=== PATIENT | female | born 1935 | race Caucasian/White ===

== ENCOUNTER 2020-03-11 10:27 | Outpatient (CLI) | payer MEDICARE, OTHER, SELFPAY ==
--- NOTE | 2020-03-11 10:38 | MM_ITS ---
WS: [id number] BILATERAL DIGITAL SCREENING MAMMOGRAPHY WITH CAD CLINICAL INFORMATION: SCREENING HISTORY: Screening mammogram. No current complaints. COMPARISON: 2018 TECHNIQUE: Bilateral CC and MLO views. FINDINGS: Scattered fibroglandular densities bilaterally. No suspicious focal mass, asymmetry, calcifications, or architectural distortion. No evidence of malignancy. Vascular calcification MM/[place] [id number] IMPRESSION: BI-RADS: 2-Benign FOLLOW UP: 1 Year Follow-up Recommend return to annual screening mammography.
--- NOTE | 2020-03-15 11:52 | ONC FU_ITS ---
Dr. Mendiola Patient Follow-Up Note Patient: NBA SANTA Unit #: [id number]: 1935 Dicatated By: Mendez Mendiola M.D.Date of Visit:Mar 11, 2020 Onc Med Follow-up/Prog Note Chief Complaint: Lymphoma. 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 She had presented in June 2006 with left cervical adenopathy. Cervical lymph node biopsy at that time was consistent with follicle center cell lymphoma, grade II. Her staging evaluation showed involvement on both sides of the neck, in the periaortic area, and in the left inguinal area. Bone marrow was not involved. She was not symptomatic, and she was initially managed with observation. By September 2009 she was showing evidence of progression by PET/CT, and at that point she started treatment with R-CVP chemotherapy. She did have a good clinical response, but she had multiple toxicities with the chemotherapy. It was stopped in November 2009 after 4 cycles. She was then given 2 years of maintenance Rituxan at 3 month intervals. Treatment was completed in November 2011. She has since then been followed on observation, thus far with no recurrence/progression of the lymphoma. Her other medical illnesses include hypertension, hyperlipidemia, type 2 diabetes, and chronic kidney disease. She also has degenerative arthritis and peripheral neuropathy. As of her follow-up visit on 01/28/2019 she appeared stable clinically with no evidence for recurrence of her lymphoma. She continued on observation/expectant management. She is seen today for a scheduled visit. 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 She has had some decline in her activity tolerance. Her ECOG score is 2. She still has good appetite. She has not had fever. She occasionally has sweating in association with low blood sugar. She sometimes has shortness of breath. She does not complain of cough, and she has not been having chest pain. She has no GI/ complaints other than her bowels tend to be real loose. She has been having aching pain in her right foot, and she also has pain in her left second toe. She is having difficulty walking because of it. She does not complain of headache or dizziness. She does have neuropathy in her feet. Medications: 1Omeprazole 1 (20 mg) Capsule Delayed Release Oral b.i.d., amLODIPine Besylate 1 Tablet (of 5 mg) Oral daily, Basaglar KwikPen 50 Units (of 100 ) Subcutaneous at bedtime, Carvedilol 1 Tablet (of 25 mg) Oral b.i.d., Ferrous Sulfate 1 Tablet (of 325 (65 fe) mg) Oral b.i.d., Gabapentin 1 Tablet (of 600 mg) Oral b.i.d., Lantus 50 Units (of 100 Units/mL) Subcutaneous at bedtime, Losartan Potassium 1 (50 mg) Tablet Oral daily, Simvastatin 1 (40 mg) Tablet Oral daily Allergies: NKDA Review of Systems: Constitutional - She has limited activity. Her appetite is good. Her weight is down a few pounds. She has not had fever. She has occasional sweating in association with low blood sugar. ECOG score is 1, ENMT - No sinus congestion/drainage. No mouth sores. No sore throat or difficulty swallowing, Hematologic/Lymphatic - No abnormal bruising or bleeding, Respiratory - She sometimes has shortness of breath. No cough. No pleuritic pain or hemoptysis, Cardiovascular - No angina pain. No palpitations, Gastrointestinal - No nausea or vomiting. No heartburn or acid reflux. She complains that her bowels are really loose. No blood in the stool or black stools, Genitourinary (F) - No dysuria or hematuria. No urinary frequency. No urgency or incontinence, Musculoskeletal - She has been having aching pain in her right foot. She also complains of pain in her left second toe. She does have difficulty walking, Integumentary - No skin rash, Neurologic - No headache or dizziness. She has neuropathy in her feet, Psychiatric - No anxiety or depression. She says she sleeps okay once she falls asleep. Vital Signs: Performed on Mar 11, 2020 15:27 Height - 66.00 in Weight - 237.2 lbs (LOW) BSA - 2.15 sq.m BMI - 38.29 (HIGH) Temperature - 99.1 F (HIGH) Pulse - 73 /min Respiration - 24 /min BP - 153/74 mm(hg) (HIGH) O2 Sat - 99 % Pain - 0 Physical Examination: Constitutional - She appears somewhat weak generally, and she has poor mobility, Eyes - Sclerae nonicteric. Conjunctivae clear, ENMT - No lesions noted in the oral cavity, Hematologic/Lymphatic - I do not feel any cervical, clavicular, or axillary lymphadenopathy, Respiratory - Lungs are clear with good air movement bilaterally, Cardiovascular - Heart rhythm is regular. There is a II/ systolic murmur. There is no gallop or rub noted, Abdomen - Soft. Liver and spleen are not enlarged. There is no abdominal mass or ascites noted and there is no inguinal adenopathy noted, Extremities - There is 1 to 2+ lower extremity edema, and there is associated mild erythema. There is a subcutaneous nodule on the dorsum of the left hand just below and lateral to the first MCP joint. It measures approximately 2 x 3 cm, and it appears to most likely be associated with the joint, Integumentary - No skin ulcerations or suspicious skin lesions, Neurologic - There are no focal neurologic deficits noted. Impression: 1. Patient with low-grade non-Hodgkin's lymphoma (grade II follicular lymphoma), diagnosed in June 2006 and initially managed with observation. 2. By September 2009 she had evidence of significant disease progression. She had a good response to treatment with 4 cycles of R-CVP chemotherapy, which she completed in November 2009. 3. She subsequently was given 2 years of maintenance Rituxan, completed in November 2011. She has since then remained on observation/expectant management. Her other medical illnesses include: 4. Hypertension. 5. Hyperlipidemia. 6. Type II diabetes. 7. Degenerative arthritis. 8. Peripheral neuropathy. I had seen her for a follow-up visit on 01/28/2019. At that time she had reported some gradual decline in her activity over the preceding year. By clinical evaluation, there was no evidence of recurrence of the lymphoma. Since then she has continued to show some further decline in her activity tolerance. Her chronic kidney disease has now progressed to late stage IV. She otherwise appears stable clinically. There appears to be no obvious progression of her lymphoma. Plan: She remains on observation/expectant management. I will see her again in 1 year, or sooner as needed. Signed By: Mendez Mendiola M.D. <<Signature on File>>
== END 2020-03-11 10:28 | disposition home or self-care (01) ==
LOC: RADSHAW 10:36
PROVIDERS: PCP Family Medicine; Visit Provider Internal Medicine Medical Oncology
DX: Z12.31 Encounter for screening mammogram for malignant neoplasm of breast (principal); C82.18 Follicular lymphoma grade II, lymph nodes of multiple sites; E78.5 Hyperlipidemia, unspecified; E11.42 Type 2 diabetes mellitus with diabetic polyneuropathy; E11.22 Type 2 diabetes mellitus with diabetic chronic kidney disease; I12.9 Hypertensive chronic kidney disease with stage 1 through stage 4 chronic kidney disease, or unspecified chronic kidney disease; N18.4 Chronic kidney disease, stage 4 (severe); Z79.4 Long term (current) use of insulin
CPT/HCPCS: 77067; G0463

== ENCOUNTER 2020-03-26 10:22 | Outpatient (CLI) | payer MEDICARE, OTHER, SELFPAY ==
[2020-03-26 11:13] LABS: Basophils # 0.1 10^3/uL (0.0-0.1); Basophils % 0.8 %; Eosinophils # 0.2 10^3/uL (0.0-0.8); Eosinophils % 1.7 %; Hematocrit 29.4 % (37.0-47.0); Hemoglobin 9.7 g/dL (11.5-15.3); Lymphocytes # 1.4 10^3/uL (0.8-4.8); Lymphocytes % 15.4 %; Mean Corpuscular Hemoglobin 29.8 pg (28.0-34.0); Mean Corpuscular Volume 90.2 fL (81-99); Mean Platelet Volume 12.2 fL (7.4-10.4); Monocytes # 0.8 10^3/uL (0.2-0.9); Monocytes % 8.3 %; Neutrophils % 73.5 %; Nucleated Red Blood Cells % 0 %; Platelet Count 296 10^3/cmm (130-400); Red Blood Count 3.26 10^6/uL (4.1-5.3); Red Cell Distribution Width 13.1 % (12.1-15.1); White Blood Count 9.3 10^3/uL (4.0-10.0)
[2020-03-26 17:06] LABS: Albumin Level 4.2 g/dL (3.5-5.2); Anion Gap 26.2 (5-19); Blood Urea Nitrogen 72 mg/dL (8-23); Calcium 9.9 mg/dL (8.5-10.5); Carbon Dioxide 20 mmol/L (22-29); Chloride 88 mmol/L (98-107); Glucose 337 mg/dL (65-115); Phosphorus 4.8 mg/dL (2.5-4.5); Sodium 131 mmol/L (136-145)
[2020-03-26 17:45] LABS: Creatinine Urine, Random 123 mg/dL (28-217); Microalbumin Random Urine 10 ug/dL (0-20)
[2020-03-26 17:46] LABS: Microalbum Creatinine Ratio Ur 81 mg/dL (0-20)
[2020-03-26 18:40] LABS: Potassium 3.2 mmol/L (3.5-5.1)
== END 2020-03-26 10:23 | disposition home or self-care (01) ==
LOC: LAB 10:32
PROVIDERS: PCP Family Medicine; Visit Provider Registered Nurse
DX: N18.4 Chronic kidney disease, stage 4 (severe) (principal)
CPT/HCPCS: 36415; 80069; 82044; 85025

== ENCOUNTER 2020-03-31 14:16 | Outpatient (CLI) | payer MEDICARE, OTHER, SELFPAY ==
--- NOTE | 2020-03-31 14:24 | US_ITS ---
NOTE: Report was unsigned for reason: Ordering provider was edited. Original Signature date and time was: 03/31/16 @ [id number] WS: [id number] ULTRASOUND RENAL TECHNIQUE: Ultrasound examination of both kidneys. CLINICAL INFORMATION: CKD STAGE 4 FINDINGS: Technically difficult examination due to body habitus. Multicystic kidneys bilaterally. Largest cyst is in the left kidney measuring 4.7 x 4.8 cm. RIGHT: Right kidney is normal in size and appearance. Echogenicity: Normal. Cortical thickness: 1.0 cm; Normal. Hydronephrosis: None. Perinephric fluid: None. Right kidney measures: 9.7 cm x 5.3 cm x 5.3 cm. LEFT: Left kidney is normal in size and appearance. Echogenicity: Normal. Cortical thickness: 1.2 cm; Normal. Hydronephrosis: None. Perinephric fluid: None. Left kidney measures: 10.3 cm x 4.8 cm x 5.3 cm. Normal visualized aorta. Patient voided. Bladder decompressed. [facility] US/US renal BI* [id number] IMPRESSION: 1. Technically difficult examination. 2. Multicystic kidneys bilaterally. No hydronephrosis. 3. Largest cyst in left kidney measures 4.7 x 4.8 cm
[2020-03-31 16:03] LABS: 25 Hydroxy Vitamin D 32 ng/mL (30-100); Anion Gap 19.1 (5-19); Blood Urea Nitrogen 51 mg/dL (8-23); Calcium 9.6 mg/dL (8.5-10.5); Carbon Dioxide 25 mmol/L (22-29); Chloride 87 mmol/L (98-107); Glucose 211 mg/dL (65-115); Osmolality Calculated 271 mOsm/kg (285-295); Potassium 3.1 mmol/L (3.5-5.1); Sodium 128 mmol/L (136-145)
[2020-03-31 16:33] LABS: Calcium 9.9 mg/dL (8.5-10.5); Parathyroid Hormone 165.9 pg/mL (15-65)
== END 2020-03-31 14:17 | disposition home or self-care (01) ==
LOC: RAD 14:21
PROVIDERS: PCP Family Medicine; Visit Provider Internal Medicine Nephrology
DX: N18.4 Chronic kidney disease, stage 4 (severe) (principal); Q61.02 Congenital multiple renal cysts
CPT/HCPCS: 36415; 76770; 80048; 82306; 82310; 83970

== ENCOUNTER 2020-04-01 12:44 | Observation (INO) | payer MEDICARE, OTHER, SELFPAY ==
[2020-04-01 12:55] VITALS: BP 112/57; PULSE 50; RESP 18; TEMP 36.9; O2SAT 96; BMI 37.5
[2020-04-01 13:34] LABS: Basophils # 0.1 10^3/uL (0.0-0.1); Basophils % 0.8 %; Eosinophils # 0.1 10^3/uL (0.0-0.8); Eosinophils % 1.5 %; Hematocrit 28.9 % (37.0-47.0); Hemoglobin 9.6 g/dL (11.5-15.3); Lymphocytes # 1.5 10^3/uL (0.8-4.8); Lymphocytes % 15.6 %; Mean Corpuscular HGB Conc 33.2 g/dL (30.0-36.0); Mean Corpuscular Hemoglobin 29.4 pg (28.0-34.0); Mean Corpuscular Volume 88.4 fL (81-99); Mean Platelet Volume 12.1 fL (7.4-10.4); Monocytes # 0.7 10^3/uL (0.2-0.9); Monocytes % 7.5 %; Neutrophils # 6.93 10^3/uL (1.8-7.7); Neutrophils % 74.5 %; Nucleated Red Blood Cells % 0 %; Platelet Count 297 10^3/cmm (130-400); Red Blood Count 3.27 10^6/uL (4.1-5.3); Red Cell Distribution Width 13.1 % (12.1-15.1); White Blood Count 9.3 10^3/uL (4.0-10.0)
[2020-04-01 13:43] LABS: INR 1.06 (0.8-1.2)
[2020-04-01 13:48] LABS: Alanine Aminotransferase 15 U/L (0-33); Albumin Level 4.2 g/dL (3.5-5.2); Alkaline Phosphatase 91 IU/L (35-105); Ammonia 12 umol/L (11-51); Anion Gap 20.2 (5-19); Aspartate Amino Transferase 16 U/L (0-32); Blood Urea Nitrogen 59 mg/dL (8-23); Calcium 9.8 mg/dL (8.5-10.5); Carbon Dioxide 24 mmol/L (22-29); Chloride 89 mmol/L (98-107); Globulin 2.3 g/dL (1.3-4.6); Glucose 250 mg/dL (65-115); Magnesium 2.2 mg/dL (1.7-2.3); Osmolality Calculated 277 mOsm/kg (285-295); Phosphorus 4.3 mg/dL (2.5-4.5); Potassium 3.2 mmol/L (3.5-5.1); Sodium 130 mmol/L (136-145); Total Bilirubin 0.3 mg/dL (0.15-1.2); Total Protein 6.5 g/dL (6.6-8.7)
--- NOTE | 2020-04-01 15:06 | W.ED.RECABL ---
HPI - Recheck/Abnormal Lab/Rx General: Chief Complaint: Recheck/Abnormal Lab/Rx Stated Complaint: sent by casper Time Seen by Provider: 04/01/20 14:43 History of Present Illness: HPI narrative: 84-year-old female in with concerns of abnormal labs. Patient had some recent labs by her engineering tech was called this morning and said that she had some abnormalities in needed presented to the emergency department. The patient has advanced chronic kidney disease reportedly but she currently denies any symptoms specifically she denies any muscle cramping or weakness she denies any fever or chills. She hasn't had any chest pain or abdominal pain. She is not exhibiting any nausea or vomiting. No other symptoms. Review of Systems General: Reports: 10 or more systems reviewed and unremarkable except in HPI and below Physical Exam Const: COMMON NORMALS: no acute distress, average body habitus, patient oriented x3, no limitations, healthy appearing, alert and well nourished HENMT: COMMON NORMALS: normocephalic HEAD & SCALP: normocephalic Eye: COMMON NORMALS: Equal, round and reactive pupils present, EOMs intact bilaterally and conjunctivae normal CONJUNCTIVA: Yes conjunctivae normal PUPIL: Yes Equal, round and reactive pupils present Neck/C-Spine: COMMON NORMALS: full ROM, no lymphadenopathy, supple, no meningeal signs, no JVD, Thyroid normal and No carotid bruits THYROID: Thyroid normal Chest: COMMONS NORMALS: normal inspection of the chest and normal palpation of entire chest wall Resp: COMMON NORMALS: normal respiratory effort, No retractions, No use of accessory muscles, clear to auscultation bilaterally and percussion normal AUSCULTATION: clear to auscultation bilaterally PERCUSSION: percussion normal Cardio: COMMON NORMALS: no JVD GI: COMMON NORMALS: Normal to inspection, nondistended, normoactive bowel sounds present, Soft to palpation, non-tender, No hepatosplenomegaly present, no masses and no bruits PALPATION: Yes Soft to palpation and Yes No hepatosplenomegaly present : COMMON NORMALS: Yes no CVA tenderness BLADDER/KIDNEY EXAM: Yes no CVA tenderness Back/Pelvis: COMMON NORMALS: no CVA tenderness Extremity: COMMON NORMALS: normal to inspection, full ROM, capillary refill normal, no joint enlargement, no clubbing, cyanosis or edema, no calf tenderness and no pedal edema Neuro: COMMON NORMALS: patient oriented x3 SENSORIUM/ORIENTATION: Yes alert MENINGEAL SIGNS: Yes no meningeal signs Skin: COMMON NORMALS: no rashes or lesions noted, no wounds, turgor normal, no jaundice, no petechiae and no mottling GENERAL SKIN EXAM: no rashes or lesions noted and turgor normal Course Vital Signs: Vital signs: Vital Signs Temperature 98.4 F 04/01/20 12:55 Pulse Rate 50 L 04/01/20 12:55 Respiratory Rate 18 04/01/20 12:55 Blood Pressure 112/57 04/01/20 12:55 Pulse Oximetry 96 04/01/20 12:55 MDM - Recheck/Abnormal Lab/Rx MDM Narrative: Medical decision making narrative: we will touch base with Dr. Simon's office with nephrology and check repeat labs and compare them to prior. Further recommendations based on the labs and discussion with nephrology. patient has been increasingly confused according to nephrology's office in the creatinine has climbed from 2.5 now to up over 4. Patient would benefit from admission to the hospital. . the hospitalist who agreed and replaced with fluids. Will hold several of her medications. Lab Data: Labs: Lab Results 04/01/20 04/01/20 04/01/20 Range/Units 13:20 13:20 13:20 WBC 9.3 (4.0-10.0) 10^3/ uL RBC 3.27 L (4.1-5.3) 10^6/u L Hgb 9.6 L (11.5-15.3) g/dL Hct 28.9 L (37.0-47.0) % MCV 88.4 (81-99) fL MCH 29.4 (28.0-34.0) pg MCHC 33.2 (30.0-36.0) g/dL RDW 13.1 (12.1-15.1) % Plt Count 297 (130-400) 10^3/c mm MPV 12.1 H (7.4-10.4) fL Neut % (Auto) 74.5 % Lymph % (Auto) 15.6 % [place] % (Auto) 7.5 % Eos % (Auto) 1.5 % Baso % (Auto) 0.8 % Neut # (Auto) 6.93 (1.8-7.7) 10^3/u L Lymph # (Auto) 1.5 (0.8-4.8) 10^3/u L [place] # (Auto) 0.7 (0.2-0.9) 10^3/u L Eos # (Auto) 0.1 (0.0-0.8) 10^3/u L Baso # (Auto) 0.1 (0.0-0.1) 10^3/u L Nucleated RBC % (a uto) 0 % Nucleated RBCs # 0.0 /100WBC PT 14.10 H (10.5-13.3) SECO NDS INR 1.06 (0.8-1.2) Sodium 130 L (136-145) mmol/L Potassium 3.2 L (3.5-5.1) mmol/L Chloride 89 L (98-107) mmol/L Carbon Dioxide 24 (22-29) mmol/L Anion Gap 20.2 H (5-19) BUN 59 H (8-23) mg/dL Creatinine 4.1 H (0.5-0.9) mg/dL Glucose 250 H (65-115) mg/dL Calculated Osmolal ity 277 L (285-295) mOsm/k g Calcium 9.8 (8.5-10.5) mg/dL Phosphorus 4.3 (2.5-4.5) mg/dL Magnesium 2.2 (1.7-2.3) mg/dL Total Bilirubin 0.3 (0.15-1.2) mg/dL AST 16 (0-32) U/L ALT 15 (0-33) U/L Alkaline Phosphata se 91 (35-105) IU/L Ammonia (11-51) umol/L Total Protein 6.5 L (6.6-8.7) g/dL Albumin 4.2 (3.5-5.2) g/dL Globulin 2.3 (1.3-4.6) g/dL 04/01/20 Range/Units 13:20 WBC (4.0-10.0) 10^3/ uL RBC (4.1-5.3) 10^6/u L Hgb (11.5-15.3) g/dL Hct (37.0-47.0) % MCV (81-99) fL MCH (28.0-34.0) pg MCHC (30.0-36.0) g/dL RDW (12.1-15.1) % Plt Count (130-400) 10^3/c mm MPV (7.4-10.4) fL Neut % (Auto) % Lymph % (Auto) % [place] % (Auto) % Eos % (Auto) % Baso % (Auto) % Neut # (Auto) (1.8-7.7) 10^3/u L Lymph # (Auto) (0.8-4.8) 10^3/u L [place] # (Auto) (0.2-0.9) 10^3/u L Eos # (Auto) (0.0-0.8) 10^3/u L Baso # (Auto) (0.0-0.1) 10^3/u L Nucleated RBC % (a uto) % Nucleated RBCs # /100WBC PT (10.5-13.3) SECO NDS INR (0.8-1.2) Sodium (136-145) mmol/L Potassium (3.5-5.1) mmol/L Chloride (98-107) mmol/L Carbon Dioxide (22-29) mmol/L Anion Gap (5-19) BUN (8-23) mg/dL Creatinine (0.5-0.9) mg/dL Glucose (65-115) mg/dL Calculated Osmolal ity (285-295) mOsm/k g Calcium (8.5-10.5) mg/dL Phosphorus (2.5-4.5) mg/dL Magnesium (1.7-2.3) mg/dL Total Bilirubin (0.15-1.2) mg/dL AST (0-32) U/L ALT (0-33) U/L Alkaline Phosphata se (35-105) IU/L Ammonia 12 (11-51) umol/L Total Protein (6.6-8.7) g/dL Albumin (3.5-5.2) g/dL Globulin (1.3-4.6) g/dL Discharge Plan Discharge Patient Disposition: Admitted As Inpatient Clinical Impression: [place] (acute kidney injury) Condition: Stable Referrals: Yung Stahl Jr, MD [Primary Care Provider] - Coding Level of Care Code ED [employer] F[employer] Assembler for Chg Fwd Exam Comprehensive
[2020-04-01] MEDS: sodium chloride 0.9% 1,000 ML 999 ML IV (17:02)
[2020-04-01 17:03] VITALS: BP 127/96; PULSE 55; RESP 16; O2SAT 98
--- NOTE | 2020-04-01 17:41 | CTR_ITS ---
PROCEDURE INFORMATION: Exam: CT Abdomen And Pelvis Without Contrast Exam date and time: 04/01/2020 5:47 PM Age: 84 years old Clinical indication: Abdominal pain; Generalized; Prior surgery; Additional info: Worsening renal function, R/O obstruction TECHNIQUE: Imaging protocol: Computed tomography of the abdomen and pelvis without contrast. Radiation optimization: All CT scans at this facility use at least one of these dose optimization techniques: automated exposure control; mA and/or kV adjustment per patient size (includes targeted exams where dose is matched to clinical indication); or iterative reconstruction. COMPARISON: US renal BI* [id number] 03/31/2020 2:22 PM RADIATION DOSE METRICS: Total DLP (mGy-cm): 1348.67 FINDINGS: Lungs: There is subpleural atelectasis of the dependent portions of the lungs. Heart: The heart is enlarged. Mediastinal space: A small hiatal hernia is present. Liver: Unremarkable.No mass. Gallbladder and bile ducts: Multiple calcified gallstones are present. There is no wall thickening or pericholecystic fluid to suggest cholecystitis. There is no common bile duct dilation. Pancreas: Normal. No ductal dilation. Spleen: Normal. No splenomegaly. Adrenals: Normal. No mass. Kidneys and ureters: There is bilateral nonobstructive nephrolithiasis versus renal vascular calcifications. There is no evidence of hydronephrosis. There is a 5.3 cm midpole simple cyst in the left kidney. Stomach and bowel: There is no evidence of intestinal perforation or obstruction. There is no evidence of colitis/diverticulitis. No bowel thickening or inflammatory changes. The stomach and loops of small bowel have an appropriate appearance. Appendix: A normal appendix is identified. Intraperitoneal space: Unremarkable. No free air. No significant fluid collection. Vasculature: There are numerous benign phleboliths in the pelvis. Prominent coronary artery calcifications are noted. Lymph nodes: Unremarkable.No enlarged lymph nodes. Bladder: The bladder is normal. Reproductive: There has been a hysterectomy. Bones/joints: There is osteopenia with severe degenerative changes in the spine. No acute bony abnormality. There is chondrocalcinosis in the pubic symphysis and both hips. Vacuum discs and marked disc space narrowing and degenerative changes are noted throughout the lumbar spine. There is degenerative grade 1 anterior listhesis of L4 on L5. Multiple levels of stenosis of the canal in the lumbar spine are noted due to small disc bulges but mostly due to marked bony proliferative changes. Soft tissues: There are small bilateral fat filled inguinal hernias. There is a large fat filled ventral hernia of the midline lower abdominal wall without induration of fat within the hernia. The defect in the abdominal wall fascia measures 2.3 cm series 602, image 41. There is also calcific tendinopathy of the gluteal tendons and hamstring tendons. Small fat filled inguinal hernias and large fat filled ventral hernia lower abdominal wall are noted without incarceration of the fat within the hernia. CT/CT abdomen pelvis wo con [id number] IMPRESSION: 1. No bowel obstruction. No bowel thickening or inflammatory changes. No obstructing calculi. There is cholelithiasis without cholecystitis. 2. Nonobstructive bilateral nephrolithiasis versus renal vascular calcifications are noted. There is a simple cyst left kidney. No follow-up is necessary. COMMENTS: Consistent with the [employer]'s Incidental Findings Committee white paper (J Am Julian Radiol 2018): Any incidental renal lesion less than 1.0 cm or classified as too small to characterize, or any incidental cystic renal lesion characterized as simple-appearing, is likely benign. No follow-up imaging is recommended for these lesions per consensus recommendations based on imaging criteria. Radiation Dose CTDIVOL = (mGy): DLP = 1348.67 (mGy-cm)
--- NOTE | 2020-04-01 17:43 | PM.HP ---
Providers/Chief Complaint Admitting Physician: Pete Ricardo MD Primary Care Provider: Yung Stahl Jr, MD Chief Complaint: sent by casper History of Present Illness Monica Mendez is a 84 year old female with past medical history of hypertension, hyperlipidemia, type 2 diabetes mellitus, degenerative disorder, non-Hodgkin's follicular lymphoma in remission, chronic kidney disease with baseline creatinine of around 2, GERD was sent in today from Dr. Simon's office because of worsening renal function for last 15 to 20 days. Patient states she has been hypertensive and diabetic for last 20 years. She thinks her diabetes and blood pressure have been been well controlled. She states her kidney function started getting worse with Dr. Stahl sent her to Dr. Simon and since then her antihypertensives have been changed multiple times which is making her confused. She is not really sure what medication she is on at present. She states her medication are usually managed by her who is also being treated for possible Alzheimer's. She is not complaining of any nausea, vomiting, headache, dizziness, abdominal pain, flulike symptoms, fever, exposure to COVID-19, lower limb swelling, chest pain on exertion or at rest, dyspnea on exertion at rest. Blood work in the ER shows a white count of 9.3, hemoglobin of 9.6, INR of 1.06, sodium of 130, creatinine of 4.1, BUN of 49, potassium of 3.2, chloride of 89 Review of Systems General: Reports: 10 or more systems reviewed and unremarkable except in HPI and below Const: Denies: fever(s), chills, body aches, change in appetite, change in weight, malaise, night sweats, diaphoresis, change in sleep pattern, daytime sleepiness or snoring Eyes: Denies: change in vision, blurry vision, photophobia, eye discomfort or eye discharge ENMT: Denies: throat pain, enlarged tonsils, hoarseness, mouth pain, oral sores, dry mouth, tinnitus, nasal congestion or post nasal drip Card: Denies: chest pain, palpitations, irregular heart rhythm, edema, swelling of feet/ankles, lightheadedness, syncope, pre-syncope, dyspnea on exertion, orthopnea, leg pain with exertion or acrocyanosis Resp: Denies: dyspnea, productive cough, non-productive cough, wheezing, stridor, pain on inspiration, change in phlegm color, hemoptysis or chest congestion GI: Denies: abdominal pain, nausea, vomiting, hematemesis, coffee ground emesis, dysphagia, heartburn, diarrhea, constipation, bloating, GI cramping, change in bowel habits, pain on defecation, hematochezia or melena : Denies: flank pain, dysuria, urinary frequency, urinary urgency, urinary hesitancy, nocturia or hematuria Musc: Denies: neck pain, back pain, extremity pain, joint pain, joint swelling, joint redness, joint stiffness or limited range of motion Neuro: Denies: headache(s), numbness in extremities, weakness in extremities, sensory changes, lack of coordination, difficulty walking, frequent falls, dizziness, vertigo, confusion, Slurred speech present, difficulty communicating thoughts or seizure-like activity Psych: Denies: anxiety, depression, mood swings, panic attacks, hopelessness or irritability Endo: Denies: polyuria, polydipsia, tired all the time, cold intolerance, excessive sweating, flushing or heat intolerance Nikunj/Lymph: Denies: easy bruising or easy bleeding All/Imm: Denies: tongue swelling, facial swelling or acute wheezing Medications/Allergies Home Medications Medication Instructions Recorded Confirmed Last Taken Type amlodipine 10 mg PO DAILY 04/01/20 04/01/20 04/01/20 History carvedilol 25 mg PO BID 04/01/20 04/01/20 04/01/20 History chlorthalidone 25 mg PO DAILY 04/01/20 04/01/20 Unknown History cinnamon bark [Cinnamon] 1,000 mg PO DAILY 04/01/20 04/01/20 04/01/20 History gabapentin 600 mg PO BID 04/01/20 04/01/20 04/01/20 History insulin glargine [Basaglar KwikPen 50 unit SUBCUT DAILY 04/01/20 04/01/20 03/31/20 History U-100 Insulin] iron 325 mg PO BID 04/01/20 04/01/20 04/01/20 History multivitamin 1 tab PO DAILY 04/01/20 04/01/20 04/01/20 History simvastatin 40 mg PO DAILY 04/01/20 04/01/20 03/31/20 History torsemide 20 mg PO DAILY 04/01/20 04/01/20 Unknown History Allergies Allergy/AdvReac Type Severity Reaction Status Date / Time No Known Allergies Allergy Unverified 04/01/20 12:59 PFSH Acute PFSH: Medical History (Updated 04/01/20 @ 17:49 by Pete Ricardo MD) Anemia CKD (chronic kidney disease) Hyperlipidemia Hypertension Non Hodgkin's lymphoma Peripheral neuropathy Type 2 diabetes mellitus Surgical History (Updated 04/01/20 @ 17:47 by Pete Ricardo MD) H/O lymph node biopsy H/O total hysterectomy with bilateral salpingo-oophorectomy (BSO) History of bilateral knee replacement History of bladder suspension procedure Family History (Updated 04/01/20 @ 17:46 by Pete Ricardo MD) Other CAD (coronary artery disease) Social History (Updated 04/01/20 @ 17:46 by Pete Ricardo MD) Smoking and tobacco status: never smoked Alcohol intake: never Substance/Drug Use: never Household members: family Housing: House Marital status: Vitals/I&O/Wt Last Vital Signs Temp 98.4 F 04/01/20 12:55 Pulse 55 L 04/01/20 17:03 Resp 16 04/01/20 17:03 BP 127/96 04/01/20 17:03 Pulse Ox 98 04/01/20 17:03 Weight last 48 hrs Weight 108.862 kg Physical Exam Narrative: EXAM NARRATIVE: General: No acute distress, AO x3 HEENT: PERRLA, pupils bilaterally equal and reactive Chest: Normal vesicular breath sounds, no added sounds, equal good air entry bilaterally CVS: S1-S2 regular, no murmurs, no tachycardia, no gallops, no rubs Abdomen: Soft, nontender, no organomegaly, bowel sounds present Neuro: No focal deficits, no facial deformity, AO x3, power 5/5 in all limbs Data : 04/01/20 13:20 04/01/20 13:20 A&P Assessment and plan (1) MARIETTA (acute kidney injury): Status: Acute (2) CKD (chronic kidney disease): Status: Acute (3) Multicystic kidney: Status: Acute (4) Anemia: Status: Acute (5) Type 2 diabetes mellitus: Status: Acute (6) Hypertension: Status: Acute (7) Non Hodgkin's lymphoma: Status: Acute (8) Hyperlipidemia: Status: Acute Additional A&P Information 84-year-old female with past medical history of hypertension, hyperlipidemia, CKD stage II getting worse recently for last 1 month since when her medications have been changed multiple times and she is not really sure what medication she is on at present being sent from Dr. Simon's office for further evaluation and treatment. Recent renal ultrasound consistent with bilateral cystic disease. Check CT abdomen to rule out obstructive uropathy. Check urine lites, urine creatinine, urine analysis, urine eosinophils, urine protein, phosphorus levels, PTH, proBNP, echocardiogram, iron panel, complement levels, EVANGELINA profile, ESR, CRP. Start patient on normal saline at 75 cc/h. Monitor for fluid overload. No signs of cardiac abnormality or metabolic acidosis at present. Recheck BMP daily. Medical reconciliation done for nephrotoxic drugs. Hypertension: Patient on multiple medications. She is on amlodipine 10 mg, carvedilol 25 mg twice daily, chlorthalidone, torsemide. Stop chlorthalidone and torsemide. Goal blood pressure less than 140/90 mmHg.. Continue amlodipine and carvedilol for now. Type diabetes mellitus: Insulin admitting protocol. Anemia: Most likely because of iron deficiency anemia and anemia of chronic disease. Check iron panel. Continue with oral iron supplementation. Full code. Low probability for DVT. SCDs. Renal nondialysis diet. Attestations Medical Necessity Statement*: Less than 2 midnights under observation for MARIETTA on CKD Time Spent in Patient Care: Greater than 35 minutes (>than 50% of time spent in counselling and/or direct pt care on unit). Coding Level of Care Code Acute Traffic Sign Erection Supervisor for Felice Jimenez Diagnoses MARIETTA (acute kidney injury) N17.9 CKD (chronic kidney disease) N18.9 Multicystic kidney Q61.4 Anemia D64.9 Type 2 diabetes mellitus E11.9 Hypertension I10 Non Hodgkin's lymphoma C85.90 Hyperlipidemia E78.5
[2020-04-01 18:10] VITALS: BP 154/84; PULSE 65; RESP 20; TEMP 36.5; O2SAT 98
[2020-04-01 18:12] LABS: Iron 48 ug/dL (37-145); Percent Saturation 21.1 % (20-50); Phosphorus 4.3 mg/dL (2.5-4.5); Total Iron Binding Capacity 227 mcg/dl; Unsaturated Iron Binding 179 ug/dL (112-347)
[2020-04-01 18:22] LABS: Thyroid Stimulating Hormone 1.95 uIU/mL (0.27-4.20)
[2020-04-01] MEDS: carvedilol 25 mg Tablet PO (18:37)
[2020-04-01] MEDS: famotidine 20 mg/2 mL INJ IVP (18:37)
[2020-04-01] MEDS: sodium chloride 0.9% 1,000 ML 75 ML IV (18:37)
[2020-04-01 18:38] LABS: Glucose Point of Care 175 mg/dL (70-110)
[2020-04-01 20:00] VITALS: BP 148/49; PULSE 61; RESP 18; TEMP 36.2; O2SAT 98
--- NOTE | 2020-04-01 20:40 | PC.NURSE ---
bruising noted to toes on right foot pt reports from joss castellanos in week.
[2020-04-01 20:50] LABS: Glucose Point of Care 190 mg/dL (70-110)
[2020-04-01 20:57] VITALS: PULSE 60; O2SAT 96
[2020-04-01 21:32] LABS: Calcium 9.5 mg/dL (8.5-10.5); Parathyroid Hormone 141.7 pg/mL (15-65)
[2020-04-01 21:58] LABS: Complement C3 140 mg/dL (90-180)
--- NOTE | 2020-04-01 22:00 | PC.NURSE ---
Sent ua down after Dr called lab called not enough urine for all labs. will send down another sample.
[2020-04-01 22:09] LABS: Bilirubin Urine Neg (NEGATIVE); Blood Urine Neg (Negative); Glucose Urine UA Norm (Normal); Ketones Urine Negative (Negative); Leukocyte Esterase Urine 1+ (Negative); Nitrate Urine Negative (Negative); Protein Urine Neg (Negative); Urine Appearance Hazy (CLEAR); Urine Color Yellow (Yellow); Urobilinogen Urine Norm (Negative); pH Urine 5 (5-7)
[2020-04-01 22:12] LABS: Add Urine Culture? No; Bacteria Urine TRACE; Renal Epithelial Cells Urine 0 /hpf
[2020-04-01 23:12] LABS: Erythrocyte Sedimentation Rate 90 mm/hr (0-15)
--- NOTE | 2020-04-01 23:44 | PC.NURSE ---
Pt voided to toilet but missed hat, small amount of urine collected and sent to lab.
[2020-04-02] VITALS: BP 130/63; PULSE 59; RESP 17; TEMP 36.4; O2SAT 96
[2020-04-02 01:00] LABS: Urine Creatinine 38 mg/dL (28-217)
[2020-04-02 01:51] LABS: Potassium, Radom Urine 12 mmol/L; Urine Random Chloride 29 mmol/L; Urine Random Sodium 33 mmol/L
[2020-04-02 04:00] VITALS: BP 126/66; PULSE 62; RESP 18; TEMP 36.6; O2SAT 96
[2020-04-02] MEDS: sodium chloride 0.9% 1,000 ML 75 ML IV (06:04)
[2020-04-02] MEDS: famotidine 20 mg/2 mL INJ IVP (06:04)
[2020-04-02 06:40] LABS: Glucose Point of Care 143 mg/dL (70-110)
[2020-04-02 07:14] LABS: Basophils # 0.1 10^3/uL (0.0-0.1); Basophils % 0.9 %; Eosinophils # 0.2 10^3/uL (0.0-0.8); Eosinophils % 2.2 %; Hematocrit 28.8 % (37.0-47.0); Hemoglobin 9.6 g/dL (11.5-15.3); Lymphocytes # 1.6 10^3/uL (0.8-4.8); Lymphocytes % 18.5 %; Mean Corpuscular HGB Conc 33.3 g/dL (30.0-36.0); Mean Corpuscular Hemoglobin 30.2 pg (28.0-34.0); Mean Corpuscular Volume 90.6 fL (81-99); Mean Platelet Volume 12.4 fL (7.4-10.4); Monocytes # 0.9 10^3/uL (0.2-0.9); Monocytes % 10.2 %; Nucleated Red Blood Cells % 0 %; Platelet Count 250 10^3/cmm (130-400); Red Blood Count 3.18 10^6/uL (4.1-5.3); Red Cell Distribution Width 13.1 % (12.1-15.1); White Blood Count 8.5 10^3/uL (4.0-10.0)
[2020-04-02 07:37] LABS: Chol HDL Ratio 4.53 mg/dL (0.0-4.40); Cholesterol 136 mg/dL (0-200); HDL Cholesterol 30 mg/dL (60-100); LDL Cholesterol Calculated 55 mg/dL (50-129); Triglycerides 256 mg/dL (0-150); VLDL Cholestrol Calculation 51 mg/dL (0-30)
[2020-04-02] MEDS: ferrous sulfate EC 325 mg Tablet PO (07:58)
[2020-04-02] MEDS: carvedilol 25 mg Tablet PO (07:59)
[2020-04-02] MEDS: amlodipine 10 mg Tablet PO (07:59)
[2020-04-02] MEDS: atorvastatin 40 mg Tablet 20 MG PO (07:59)
[2020-04-02 08:00] VITALS: BP 130/63; PULSE 64; RESP 18; TEMP 36.8; O2SAT 97
[2020-04-02] MEDS: gabapentin 300 mg Capsule 600 MG PO (08:00)
[2020-04-02 08:07] LABS: Eosinophil Urine No Eosinophils Seen; Urine Eosinophil Count 0 (0-0)
[2020-04-02 08:34] LABS: Estmated Average Glucose 160; Hemoglobin A1C 7.2 % (4.0-6.0)
[2020-04-02 08:58] LABS: Alanine Aminotransferase 14 U/L (0-33); Albumin Level 3.7 g/dL (3.5-5.2); Alkaline Phosphatase 85 IU/L (35-105); Aspartate Amino Transferase 15 U/L (0-32); Blood Urea Nitrogen 43 mg/dL (8-23); Calcium 9.4 mg/dL (8.5-10.5); Carbon Dioxide 21 mmol/L (22-29); Chloride 95 mmol/L (98-107); Globulin 2.9 g/dL (1.3-4.6); Glucose 133 mg/dL (65-115); Osmolality Calculated 278 mOsm/kg (285-295); Sodium 134 mmol/L (136-145); Total Bilirubin 0.2 mg/dL (0.15-1.2); Total Protein 6.6 g/dL (6.6-8.7)
[2020-04-02 09:47] LABS: C Reactive Protein 12.1 mg/L (0.0-4.9)
--- NOTE | 2020-04-02 10:28 | PC.CHAP ---
Pastoral Care Encounter/Spiritual Assessment Type of Contact [] Declined sky cap visit [] Patient/Family/Request visit [] Outpatient visit [] Follow-up visit [] Physician referral [] Code/Alert [x] Routine visit [] Staff referral [] Actively dying [] Patient sleeping [] Family support [] [] Out of room [] Palliative care [] [] Receiving care in room [] Pre-surgical visit [] Trauma [] Long length of stay [] ICU visit [] Other: Relational/Emotional Strength [] Patient feels connected with others/family/visitors/staff [] Distress [] Loneliness/isolation [] Abandonment Spirituality of Patient [] Person of Alee [] Attends Orthodox of their Alee [] Believes in Prayer [] Reads Bible or Jewish materials [] There are Spiritual issues to be addressed Crm System Administrator Interventions [x] Prayer [x] Active listening [x] Non-anxious presence [x] Spiritual/emotional support [] Crisis/trauma care [] Spiritual counseling [] Bereavement support [] Provided bereavement packet [] Provided Bible/devotional materials [] Provided toy/stuffed animal, coloring book to patient or family member [] Provided Communion [] Anointing/[place] [] Salvation [x] Completed spiritual assessment [] Other: Impact on Illness or Injury [] Angry [] Fearful [] Anxious [] Often cries [] Exhaustion [] Unable to work [] Unable to attend judaism [] Unable to walk/stand [] Unable to read [] Unable to drive [] Unable to eat/drink [] Unable to sleep [] Unable to be with family [] Patient intubated [] Other: Summary Patient resting well Time spent with patient 10 min
[2020-04-02 12:00] VITALS: BP 134/66; PULSE 67; RESP 18; TEMP 36.9; O2SAT 96
--- NOTE | 2020-04-02 12:05 | P.DS_ITS ---
Discharge Providers Date of Admission: 04/01/20 16:28 Date of Discharge: April 02, 2020 Attending Provider at Admission: Pete Ricardo MD Attending Provider at Discharge: Pete Ricrado MD Primary Care Provider: Yung Stahl Jr, MD Diagnoses at Discharge Discharge Diagnosis (1) MARIETTA (acute kidney injury): Status: Acute (2) CKD (chronic kidney disease): Status: Acute (3) Multicystic kidney: Status: Acute (4) Anemia: Status: Acute (5) Type 2 diabetes mellitus: Status: Acute (6) Hypertension: Status: Acute (7) Non Hodgkin's lymphoma: Status: Acute (8) Hyperlipidemia: Status: Acute Reason for Visit Reason for Visit: sent by [facility] Hospital Course Discharge Summary: Monica Mendez is a 84 year old female with past medical history of hypertension, hyperlipidemia, type 2 diabetes mellitus, degenerative disorder, non-Hodgkin's follicular lymphoma in remission, chronic kidney disease with baseline creatinine of around 2, GERD was sent in today from Dr. Simon's office because of worsening renal function for last 15 to 20 days. Patient states she has been hypertensive and diabetic for last 20 years. She thinks her diabetes and blood pressure have been been well controlled. She states her kidney function started getting worse with Dr. Stahl sent her to Dr. Simon and since then her antihypertensives have been changed multiple times which is making her confused. She is not really sure what medication she is on at present. She states her medication are usually managed by her who is also being treated for possible Alzheimer's. She is not complaining of any nausea, vomiting, headache, dizziness, abdominal pain, flulike symptoms, fever, exposure to COVID-19, lower limb swelling, chest pain on exertion or at rest, dyspnea on exertion at rest. Blood work in the ER shows a white count of 9.3, hemoglobin of 9.6, INR of 1.06, sodium of 130, creatinine of 4.1, BUN of 49, potassium of 3.2, chloride of 89. Patient was admitted to the floor and started on IV fluids. Blood work, imaging, urine studies were sent for CKD. Her creatinine improved to 3.5 with IV fluids. HbA1c was 7.2, iron panel was within normal limits, lipid panel showed elevated triglycerides, PTH was 147.5, TSH was within normal limits, urinalysis done was negative for eosinophils and urine lites was positive for intrinsic injury. It is believed patient CKD is most likely because of longstanding hypertension, type 2 diabetes mellitus and most likely nephrotoxic drugs. CT abdomen was done which was negative for bowel obstruction and showed nonobstructive bilateral nephrolithiasis with a simple cyst in the left kidney. Her antihypertensives were adjusted. She is discharged on Amlodipine, coreg. She is advised not to take any nephrotoxic drugs including diuretics. She is been discharged in hemodynamic stable condition with adjusted antihypertensives and advised to follow-up with the primary care provider and mountain guide in 2 weeks. Physical Exam Narrative: EXAM NARRATIVE: General: No acute distress, AO x3 HEENT: PERRLA, pupils bilaterally equal and reactive Chest: Normal vesicular breath sounds, no added sounds, equal good air entry bilaterally CVS: S1-S2 regular, no murmurs, no tachycardia, no gallops, no rubs Abdomen: Soft, nontender, no organomegaly, bowel sounds present Neuro: No focal deficits, no facial deformity, AO x3, power 5/5 in all limbs Discharge Data Data Completed and Pending: Completed Studies During Hospitalization Category Date Time Status CT abdomen pelvis wo con [id number] Rout ine Cat Scan 04/01/20 17:41 Completed Pending at discharge Category Date Time Status [facility] Profile R outine Lab 04/01/20 13:20 Received Urine Protein Mary ctrop Random Stat Lab 04/01/20 23:30 Received CV echo complete* [id number] Routine Ultrasound 04/02/20 17:41 Ordered US renal BI* [id number] Routine Ultrasound 04/02/20 17:41 Ordered Labs from last 24 hours 04/02/20 04/02/20 04/02/20 06:32 05:35 05:35 WBC 8.5 RBC 3.18 L Hgb 9.6 L Hct 28.8 L MCV 90.6 MCH 30.2 MCHC 33.3 RDW 13.1 Plt Count 250 MPV 12.4 H Neut % (Auto) 68.0 Lymph % (Auto) 18.5 [place] % (Auto) 10.2 Eos % (Auto) 2.2 Baso % (Auto) 0.9 Neut # (Auto) 5.80 Lymph # (Auto) 1.6 [place] # (Auto) 0.9 Eos # (Auto) 0.2 Baso # (Auto) 0.1 Nucleated RBC % (a uto) 0 Nucleated RBCs # 0.0 ESR PT INR Sodium 134 L Potassium 3.0 L Chloride 95 L Carbon Dioxide 21 L Anion Gap 21.0 H BUN 43 H Creatinine 3.5 H Glucose 133 H POC Glucose 143 Estimat Average Gl ucose Hemoglobin A1c Calculated Osmolal ity 278 L Calcium 9.4 Phosphorus Magnesium Iron TIBC % Saturation Unsat Iron Binding Total Bilirubin 0.2 AST 15 ALT 14 Alkaline Phosphata se 85 Ammonia C-Reactive Protein Total Protein 6.6 Albumin 3.7 Globulin 2.9 Triglycerides Cholesterol LDL Cholesterol, C alc Total VLDL Cholest merry HDL Cholesterol Cholesterol/HDL Ra razia TSH PTH Intact Calcium (PTH Intac t) Urine Color Urine Appearance Urine pH Ur Specific Gravit y Urine Protein Urine Glucose (UA) Urine Ketones Urine Blood Urine Nitrate Urine Bilirubin Urine Urobilinogen Ur Leukocyte Vanessa ase Urine RBC Urine WBC Ur Eosinophil Smea r Ur Squamous Epith Cells Ur Renal Epithelia l Cell Urine Bacteria Urine Eosinophils Ur Random Sodium Ur Random Potassiu m Ur Random Chloride Urine Creatinine Complement C3 Complement C4 04/02/20 04/02/20 04/01/20 05:35 05:35 23:30 WBC RBC Hgb Hct MCV MCH MCHC RDW Plt Count MPV Neut % (Auto) Lymph % (Auto) [place] % (Auto) Eos % (Auto) Baso % (Auto) Neut # (Auto) Lymph # (Auto) [place] # (Auto) Eos # (Auto) Baso # (Auto) Nucleated RBC % (a uto) Nucleated RBCs # ESR PT INR Sodium Potassium Chloride Carbon Dioxide Anion Gap BUN Creatinine Glucose POC Glucose Estimat Average Gl ucose 160 Hemoglobin A1c 7.2 H Calculated Osmolal ity Calcium Phosphorus Magnesium Iron TIBC % Saturation Unsat Iron Binding Total Bilirubin AST ALT Alkaline Phosphata se Ammonia C-Reactive Protein Total Protein Albumin Globulin Triglycerides 256 H Cholesterol 136 LDL Cholesterol, C alc 55 Total VLDL Cholest merry 51 H HDL Cholesterol 30 L Cholesterol/HDL Ra rzaia 4.53 H TSH PTH Intact Calcium (PTH Intac t) Urine Color Urine Appearance Urine pH Ur Specific Gravit y Urine Protein Urine Glucose (UA) Urine Ketones Urine Blood Urine Nitrate Urine Bilirubin Urine Urobilinogen Ur Leukocyte Vanessa ase Urine RBC Urine WBC Ur Eosinophil Smea r 0 Ur Squamous Epith Cells Ur Renal Epithelia l Cell Urine Bacteria Urine Eosinophils No eosinophils se en Ur Random Sodium Ur Random Potassiu m Ur Random Chloride Urine Creatinine Complement C3 Complement C4 04/01/20 04/01/20 04/01/20 20:47 20:22 20:22 WBC RBC Hgb Hct MCV MCH MCHC RDW Plt Count MPV Neut % (Auto) Lymph % (Auto) [place] % (Auto) Eos % (Auto) Baso % (Auto) Neut # (Auto) Lymph # (Auto) [place] # (Auto) Eos # (Auto) Baso # (Auto) Nucleated RBC % (a uto) Nucleated RBCs # ESR PT INR Sodium Potassium Chloride Carbon Dioxide Anion Gap BUN Creatinine Glucose POC Glucose 190 Estimat Average Gl ucose Hemoglobin A1c Calculated Osmolal ity Calcium Phosphorus Magnesium Iron TIBC % Saturation Unsat Iron Binding Total Bilirubin AST ALT Alkaline Phosphata se Ammonia C-Reactive Protein Total Protein Albumin Globulin Triglycerides Cholesterol LDL Cholesterol, C alc Total VLDL Cholest merry HDL Cholesterol Cholesterol/HDL Ra razia TSH PTH Intact Calcium (PTH Intac t) Urine Color Urine Appearance Urine pH Ur Specific Gravit y Urine Protein Urine Glucose (UA) Urine Ketones Urine Blood Urine Nitrate Urine Bilirubin Urine Urobilinogen Ur Leukocyte Vanessa ase Urine RBC Urine WBC Ur Eosinophil Smea r Ur Squamous Epith Cells Ur Renal Epithelia l Cell Urine Bacteria Urine Eosinophils Ur Random Sodium 33 Ur Random Potassiu m 12 Ur Random Chloride 29 Urine Creatinine 38 Complement C3 Complement C4 04/01/20 04/01/20 04/01/20 20:22 19:17 18:34 WBC RBC Hgb Hct MCV MCH MCHC RDW Plt Count MPV Neut % (Auto) Lymph % (Auto) [place] % (Auto) Eos % (Auto) Baso % (Auto) Neut # (Auto) Lymph # (Auto) [place] # (Auto) Eos # (Auto) Baso # (Auto) Nucleated RBC % (a uto) Nucleated RBCs # ESR PT INR Sodium Potassium Chloride Carbon Dioxide Anion Gap BUN Creatinine Glucose POC Glucose 175 Estimat Average Gl ucose Hemoglobin A1c Calculated Osmolal ity Calcium Phosphorus Magnesium Iron TIBC % Saturation Unsat Iron Binding Total Bilirubin AST ALT Alkaline Phosphata se Ammonia C-Reactive Protein Total Protein Albumin Globulin Triglycerides Cholesterol LDL Cholesterol, C alc Total VLDL Cholest merry HDL Cholesterol Cholesterol/HDL Ra raiza TSH PTH Intact 141.7 H Calcium (PTH Intac t) 9.5 Urine Color Yellow Urine Appearance Hazy A Urine pH 5 Ur Specific Gravit y 1.010 Urine Protein Neg Urine Glucose (UA) Norm Urine Ketones Negative Urine Blood Neg Urine Nitrate Negative Urine Bilirubin Neg Urine Urobilinogen Norm Ur Leukocyte Vanessa ase 1+ H Urine RBC None Urine WBC 5-10 H Ur Eosinophil Smea r Ur Squamous Epith Cells 5-10 H Ur Renal Epithelia l Cell 0 Urine Bacteria Trace Urine Eosinophils Ur Random Sodium Ur Random Potassiu m Ur Random Chloride Urine Creatinine Complement C3 Complement C4 04/01/20 04/01/20 04/01/20 13:20 13:20 13:20 WBC RBC Hgb Hct MCV MCH MCHC RDW Plt Count MPV Neut % (Auto) Lymph % (Auto) [place] % (Auto) Eos % (Auto) Baso % (Auto) Neut # (Auto) Lymph # (Auto) [place] # (Auto) Eos # (Auto) Baso # (Auto) Nucleated RBC % (a uto) Nucleated RBCs # ESR 90 H PT INR Sodium Potassium Chloride Carbon Dioxide Anion Gap BUN Creatinine Glucose POC Glucose Estimat Average Gl ucose Hemoglobin A1c Calculated Osmolal ity Calcium Phosphorus Magnesium Iron TIBC % Saturation Unsat Iron Binding Total Bilirubin AST ALT Alkaline Phosphata se Ammonia C-Reactive Protein 12.1 H Total Protein Albumin Globulin Triglycerides Cholesterol LDL Cholesterol, C alc Total VLDL Cholest merry HDL Cholesterol Cholesterol/HDL Ra razia TSH 1.95 PTH Intact Calcium (PTH Intac t) Urine Color Urine Appearance Urine pH Ur Specific Gravit y Urine Protein Urine Glucose (UA) Urine Ketones Urine Blood Urine Nitrate Urine Bilirubin Urine Urobilinogen Ur Leukocyte Vanessa ase Urine RBC Urine WBC Ur Eosinophil Smea r Ur Squamous Epith Cells Ur Renal Epithelia l Cell Urine Bacteria Urine Eosinophils Ur Random Sodium Ur Random Potassiu m Ur Random Chloride Urine Creatinine Complement C3 140 Complement C4 38 04/01/20 04/01/20 04/01/20 13:20 13:20 13:20 WBC RBC Hgb Hct MCV MCH MCHC RDW Plt Count MPV Neut % (Auto) Lymph % (Auto) [place] % (Auto) Eos % (Auto) Baso % (Auto) Neut # (Auto) Lymph # (Auto) [place] # (Auto) Eos # (Auto) Baso # (Auto) Nucleated RBC % (a uto) Nucleated RBCs # ESR PT INR Sodium 130 L Potassium 3.2 L Chloride 89 L Carbon Dioxide 24 Anion Gap 20.2 H BUN 59 H Creatinine 4.1 H Glucose 250 H POC Glucose Estimat Average Gl ucose Hemoglobin A1c Calculated Osmolal ity 277 L Calcium 9.8 Phosphorus 4.3 4.3 Magnesium 2.2 Iron 48 TIBC 227 % Saturation 21.1 Unsat Iron Binding 179 Total Bilirubin 0.3 AST 16 ALT 15 Alkaline Phosphata se 91 Ammonia 12 C-Reactive Protein Total Protein 6.5 L Albumin 4.2 Globulin 2.3 Triglycerides Cholesterol LDL Cholesterol, C alc Total VLDL Cholest merry HDL Cholesterol Cholesterol/HDL Ra razia TSH PTH Intact Calcium (PTH Intac t) Urine Color Urine Appearance Urine pH Ur Specific Gravit y Urine Protein Urine Glucose (UA) Urine Ketones Urine Blood Urine Nitrate Urine Bilirubin Urine Urobilinogen Ur Leukocyte Vanessa ase Urine RBC Urine WBC Ur Eosinophil Smea r Ur Squamous Epith Cells Ur Renal Epithelia l Cell Urine Bacteria Urine Eosinophils Ur Random Sodium Ur Random Potassiu m Ur Random Chloride Urine Creatinine Complement C3 Complement C4 04/01/20 04/01/20 13:20 13:20 WBC 9.3 RBC 3.27 L Hgb 9.6 L Hct 28.9 L MCV 88.4 MCH 29.4 MCHC 33.2 RDW 13.1 Plt Count 297 MPV 12.1 H Neut % (Auto) 74.5 Lymph % (Auto) 15.6 [place] % (Auto) 7.5 Eos % (Auto) 1.5 Baso % (Auto) 0.8 Neut # (Auto) 6.93 Lymph # (Auto) 1.5 [place] # (Auto) 0.7 Eos # (Auto) 0.1 Baso # (Auto) 0.1 Nucleated RBC % (a uto) 0 Nucleated RBCs # 0.0 ESR PT 14.10 H INR 1.06 Sodium Potassium Chloride Carbon Dioxide Anion Gap BUN Creatinine Glucose POC Glucose Estimat Average Gl ucose Hemoglobin A1c Calculated Osmolal ity Calcium Phosphorus Magnesium Iron TIBC % Saturation Unsat Iron Binding Total Bilirubin AST ALT Alkaline Phosphata se Ammonia C-Reactive Protein Total Protein Albumin Globulin Triglycerides Cholesterol LDL Cholesterol, C alc Total VLDL Cholest merry HDL Cholesterol Cholesterol/HDL Ra razia TSH PTH Intact Calcium (PTH Intac t) Urine Color Urine Appearance Urine pH Ur Specific Gravit y Urine Protein Urine Glucose (UA) Urine Ketones Urine Blood Urine Nitrate Urine Bilirubin Urine Urobilinogen Ur Leukocyte Vanessa ase Urine RBC Urine WBC Ur Eosinophil Smea r Ur Squamous Epith Cells Ur Renal Epithelia l Cell Urine Bacteria Urine Eosinophils Ur Random Sodium Ur Random Potassiu m Ur Random Chloride Urine Creatinine Complement C3 Complement C4 Vitals: Last Vital Signs Temp 98.3 F 04/02/20 08:00 Pulse 64 04/02/20 08:00 Resp 18 04/02/20 08:00 BP 130/63 04/02/20 08:00 Pulse Ox 97 04/02/20 08:00 Discharge Plan Discharge Patient Disposition: Home Health Service Condition: Stable Prescriptions: Continued multivitamin Tablet 1 tab PO DAILY RF: 0 carvedilol 25 mg tablet 25 mg PO BID RF: 0 gabapentin 600 mg tablet 600 mg PO BID RF: 0 simvastatin 40 mg tablet 40 mg PO DAILY RF: 0 amlodipine 10 mg tablet 10 mg PO DAILY RF: 0 iron 325 mg (65 mg iron) Tablet 325 mg PO BID RF: 0 Cinnamon 500 mg Capsule 1,000 mg PO DAILY RF: 0 Basaglar KwikPen U-100 Insulin 100 unit/mL (3 mL) insulin pen 50 unit SUBCUT DAILY RF: 0 Discontinued torsemide 20 mg tablet 20 mg PO DAILY RF: 0 chlorthalidone 25 mg tablet 25 mg PO DAILY RF: 0 Discharge Orders: Discharge Order (Routine); Ordered 04/02/20 Ordered By: Pete Ricardo Referrals: [facility] [Outside] (Called [facility] to inform them of Discharge. Faxed Discharge [facility].) Jason Simon MD [Referring] - 04/07/20 2:00 pm (You have an appointment with Dr. Simon on April 07 at 2:00pm at the [facility] on [address] [place] [address] ) Yung Stahl Jr, MD [Primary Care Provider] - 04/13/20 2:15 pm (You have an appointment on April 13 at 2:15pm) Discharge Diet: Cardiac and Diabetic Discharge Activity: Resume usual activity and Increase activity as tolerated Patient Instructions: Acute Kidney Injury (DC), Chronic Kidney Disease (GEN) Activity Restrictions/Additional Instructions: Your antihypertensives have been changed. He was only supposed to take amlodipine and carvedilol now. Please follow-up with your primary care provider in 2 weeks and follow-up for BMP. Please follow-up with Dr. Simon at the set appointment. [facility] has been set up for you for physical therapy and medication. Discharge Date/Time: 04/02/20 13:28 Discharge Attestations Time Spent in Discharge Care*: greater than 30 min Specific Discharge Activities: Specific discharge activities: educating patient, discussing with pcp/other providers, discussing with case resource manager/social workers/dc planners, documenting/other paperwork and evaluating patient/reviewing data Status at Discharge: Cognitive status at discharge: cognitively intact , Behavioral status at discharge: cooperative , Functional status at discharge: independent ambulation Overall status at discharge: patient is back to baseline Quality Metrics Clinical Quality Measures During this hospital stay, did patient experience: None Coding Level of Care Code 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
[2020-04-02 12:24] VITALS: BP 134/66; PULSE 67; RESP 18; TEMP 36.9; O2SAT 96
[2020-04-02 12:35] LABS: Glucose Point of Care 286 mg/dL (70-110)
--- NOTE | 2020-04-02 13:08 | PC.NURSE ---
discharge instructions given to patient, all questions answered and pt verbalized understanding of instructions.
[2020-04-05 11:45] LABS: Anti-Double Strand DNA AB <1 IU/mL; Jo-1 Antibody <1.0 NEG AI (<1.0 NEG); SM/RNP Antibodies <1.0 NEG AI (<1.0 NEG); SS-B/LA IGG <1.0 NEG AI (<1.0 NEG); Scleroderma Ab(Scl-70) Ab <1.0 NEG AI (<1.0 NEG); Ss-A/Ro Igg <1.0 NEG AI (<1.0 NEG)
== END 2020-04-02 13:28 | disposition home health service (06) ==
LOC: ER 16:28 → MEDSURG 04-02 08:54
PROVIDERS: Nurse Practitioner Family; Admitting Provider Student in an Organized Health Care Education/Training Program; Emergency Provider Family Medicine; PCP Family Medicine; Visit Provider Student in an Organized Health Care Education/Training Program
DX: N17.9 Acute kidney failure, unspecified (principal); E11.22 Type 2 diabetes mellitus with diabetic chronic kidney disease; I12.9 Hypertensive chronic kidney disease with stage 1 through stage 4 chronic kidney disease, or unspecified chronic kidney disease; N18.2 Chronic kidney disease, stage 2 (mild); Q61.4 Renal dysplasia; D63.1 Anemia in chronic kidney disease; C85.90 Non-Hodgkin lymphoma, unspecified, unspecified site; E78.5 Hyperlipidemia, unspecified; K21.9 Gastro-esophageal reflux disease without esophagitis; Z79.4 Long term (current) use of insulin; E11.42 Type 2 diabetes mellitus with diabetic polyneuropathy; Z82.49 Family history of ischemic heart disease and other diseases of the circulatory system
CPT/HCPCS: 12345; 36415; 36416; 74176; 80053; 80061; 81001; 82140; 82310; 82436; 82570; 82962; 83036; 83540; 83550; 83735; 83970; 84100; 84133; 84300; 84443; 85025; 85610; 85651; 85999; 86140; 86160; 86225; 86235; 96360; 96361; 96372; 96375; 99282; 99285; G0378; J1815; J3490; J7030

== ENCOUNTER 2020-04-06 10:03 | Outpatient (CLI) | payer MEDICARE, OTHER, SELFPAY ==
[2020-04-06 10:41] LABS: Basophils % 0.3 %; Eosinophils # 0.1 10^3/uL (0.0-0.8); Eosinophils % 1.3 %; Hematocrit 27.5 % (37.0-47.0); Hemoglobin 9.6 g/dL (11.5-15.3); Lymphocytes # 1.4 10^3/uL (0.8-4.8); Lymphocytes % 14.7 %; Mean Corpuscular HGB Conc 34.9 g/dL (30.0-36.0); Mean Corpuscular Volume 85.9 fL (81-99); Mean Platelet Volume 11.2 fL (7.4-10.4); Monocytes # 0.9 10^3/uL (0.2-0.9); Monocytes % 9.7 %; Neutrophils # 7.07 10^3/uL (1.8-7.7); Neutrophils % 73.5 %; Nucleated Red Blood Cells % 0 %; Platelet Count 281 10^3/cmm (130-400); Red Cell Distribution Width 12.5 % (12.1-15.1); White Blood Count 9.6 10^3/uL (4.0-10.0)
[2020-04-06 11:09] LABS: Creatinine Urine, Random 57 mg/dL (28-217); Microalbumin Random Urine 8 ug/dL (0-20)
[2020-04-06 11:11] LABS: Microalbum Creatinine Ratio Ur 140 mg/dL (0-20)
[2020-04-06 11:20] LABS: Calcium 9.6 mg/dL (8.5-10.5); Parathyroid Hormone 180.6 pg/mL (15-65)
[2020-04-06 11:24] LABS: 25 Hydroxy Vitamin D 33 ng/mL (30-100); Albumin Level 4.1 g/dL (3.5-5.2); Anion Gap 17.2 (5-19); Blood Urea Nitrogen 38 mg/dL (8-23); Calcium 9.2 mg/dL (8.5-10.5); Carbon Dioxide 25 mmol/L (22-29); Chloride 81 mmol/L (98-107); Glucose 153 mg/dL (65-115); Phosphorus 4.7 mg/dL (2.5-4.5); Potassium 3.2 mmol/L (3.5-5.1); Sodium 120 mmol/L (136-145)
== END 2020-04-06 10:04 | disposition home or self-care (01) ==
LOC: LAB 10:11
PROVIDERS: PCP Family Medicine; Visit Provider Internal Medicine Nephrology
DX: N18.4 Chronic kidney disease, stage 4 (severe) (principal)
CPT/HCPCS: 36415; 80069; 82044; 82306; 82310; 83970; 85025

== ENCOUNTER 2021-01-04 12:14 | Inpatient (IN) | payer MEDICARE, OTHER, SELFPAY ==
[2021-01-04 12:15] VITALS: BP 148/80; PULSE 69; RESP 16; TEMP 37.3; O2SAT 97; BMI 35.6
--- NOTE | 2021-01-04 12:20 | XRR_ITS ---
PROCEDURE INFORMATION: Exam: XR Chest Exam date and time: 01/04/2021 1:00 AM Age: 85 years old Clinical indication: Other: Syncope/fall/weakness TECHNIQUE: Imaging protocol: XR of the chest. Views: 1 view. COMPARISON: CR Chest 2 views* [id number] 01/11/2018 1:44 PM FINDINGS: Lungs: Unremarkable. No consolidation. Pleural spaces: Unremarkable. No pleural effusion. No pneumothorax. Heart/Mediastinum: Unremarkable. No cardiomegaly. 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 XR/XR chest 1V portable [id number] IMPRESSION: No significant cardiopulmonary abnormality.
--- NOTE | 2021-01-04 12:20 | ECG_ITS ---
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[id number] Requested By: Min Hoover Order Number: [id number] Reading MD: VALERIE GORDILLO Measurements Intervals [place] Rate: 68 P: 76 MN: 223 QRS: -60 QRSD: 105 T: 55 QT: 417 QTc: 447 Interpretive Statements SINUS RHYTHM WITH FIRST DEGREE AV BLOCK LEFT AXIS DEVIATION [QRS AXIS < -30] INCOMPLETE RIGHT BUNDLE BRANCH BLOCK [90+ ms QRS DURATION, TERMINAL R IN V1/V2, 40+ ms S IN I/aVL/V4/V5/V6] ANTEROSEPTAL MYOCARDIAL INFARCTION , OF INDETERMINATE AGE [40+ ms Q WAVE IN V1-V4] Compared to ECG 10/06/2016 12:51:03 First degree AV block now present Incomplete right bundle-branch block now present Myocardial infarct finding now present Electronically Signed On 01-04-2021 23:40:26 CDT by VALERIE GORDILLO [id number]
--- NOTE | 2021-01-04 12:20 | CT_ITS ---
WS: [id number] CT HEAD TECHNIQUE: Noncontrast CT of the head obtained from the skullbase to the vertex. CLINICAL INFORMATION: syncope COMPARISON: CT 1 20,017 DLP: 935.[address] scans at [facility] use at least one of these dose optimization techniques: automat ed exposure control; mA and/or kV adjustment per patient size (includes targeted exams where dose is matched to clinical indication); or iterative reconstruction. FINDINGS: No evidence of intracranial hemorrhage or mass effect. Ventricular system and basal cisterns are edward nt. Advanced small vessel changes with moderate parenchymal volume loss. No extra-axial fluid collect ions. No evidence of mass or mass effect. Normal miller-white differentiation. Paranasal sinuses and mastoid air cells are well aerated. .Normal visualized soft tissues. CT/CT head wo con* [id number] IMPRESSION: 1. No evidence of intracranial hemorrhage or mass effect. 2. Advanced small vessel changes with moderate parenchymal volume loss. 3. No acute intracranial findings.
--- NOTE | 2021-01-04 12:24 | W.ED.FALL ---
HPI - Fall General: Chief Complaint: Fall Stated Complaint: SYNCOPE, FALL, LEG PAIN Time Seen by Provider: 01/04/21 12:20 History of Present Illness: HPI Narrative: 85-year-old female presents with bilateral lower extremity pain. She reports the pain is in her lower legs. Her bilateral lower legs are extremely swollen. She complains of generalized weakness in both her legs. Patient reports that yesterday afternoon she was talking to her cleaning lady when she just had a syncope event. That after the syncope event she was weak, had to crawl over to a chair and get up into it. That since then she is just felt like both of her lower legs have been weak. She does not complaining of back pain. She did not complain of any focal weakness, slurred speech, chest pain, shortness of breath or other symptoms prior to or after the fall. Associated symptoms-after fall: Denies abdominal pain, chest pain, headache(s) or neck pain Review of Systems Const: Reports: other (Please see HPI); Denies: fever(s) or chills Eyes: Denies: change in vision or blurry vision ENMT: Denies: throat pain Card: Reports: edema (Bilateral lower extremity from the knees down) and swelling of feet/ankles; Denies: chest pain or palpitations Resp: Denies: dyspnea, productive cough or non-productive cough GI: Denies: abdominal pain, nausea or vomiting : Denies: flank pain Musc: Denies: neck pain Skin/Breast: Denies: rash Neuro: Denies: headache(s) Psych: Denies: anxiety PFSH ED PFSH: Medical History Anemia CKD (chronic kidney disease) Hyperlipidemia Hypertension Non Hodgkin's lymphoma Peripheral neuropathy Type 2 diabetes mellitus Surgical History H/O lymph node biopsy H/O total hysterectomy with bilateral salpingo-oophorectomy (BSO) History of bilateral knee replacement History of bladder suspension procedure Family History Other CAD (coronary artery disease) Social History Smoking and tobacco status: never smoked Alcohol intake: never Household members: family Housing: House Marital status: Physical Exam Const: COMMON NORMALS: no acute distress, patient oriented x3 and alert GENERAL APPEARANCE: cooperative and comfortable Resp: COMMON NORMALS: normal respiratory effort and clear to auscultation bilaterally EFFORT & INSPECTION: Yes able to speak in complete sentences AUSCULTATION: clear to auscultation bilaterally Cardio: COMMON NORMALS: regular rate and regular rhythm RATE: regular rate RHYTHM: regular rhythm GI: COMMON NORMALS: Soft to palpation and non-tender PALPATION: Yes Soft to palpation Back/Pelvis: COMMON NORMALS: thoracic and lumbar spine normal to inspection Extremity: GENERAL: Yes edema (3+ bilateral lower extremity edema from the knee down) Neuro: COMMON NORMALS: patient oriented x3, moves all extremities (weakness bilateral lower ext ) and no focal motor deficits SENSORIUM/ORIENTATION: Yes alert Psych: COMMON NORMALS: mental status grossly normal, Normal thought process present and normal affect ATTITUDE: Yes calm THOUGHT PROCESS: Normal thought process present Skin: COMMON NORMALS: no rashes or lesions noted GENERAL SKIN EXAM: no rashes or lesions noted Course Vital Signs: Vital signs: Vital Signs Temperature 99.1 F 01/04/21 12:15 Pulse Rate 69 01/04/21 12:15 Respiratory Rate 16 01/04/21 12:15 Blood Pressure 148/80 01/04/21 12:15 Pulse Oximetry 97 01/04/21 12:15 MDM - Fall MDM Narrative: Medical decision making narrative: Patient to be admitted for further evaluation with probable PT OT evaluation and further evaluation of her syncope episode from yesterday. Patient with no acute findings. Patient's lab review is near her baseline. She does have low sodium. Patient's stable upon admission Lab Data: Attestation: I reviewed the patient's lab results. Labs: Lab Results 01/04/21 01/04/21 01/04/21 Range/Units 12:57 12:57 12:57 WBC 9.6 (4.0-10.0) 10^3/ uL RBC 3.58 L (4.1-5.3) 10^6/u L Hgb 10.7 L (11.5-15.3) g/dL Hct 32.7 L (37.0-47.0) % MCV 91.3 (81-99) fL MCH 29.9 (28.0-34.0) pg MCHC 32.7 (30.0-36.0) g/dL RDW 13.6 (12.1-15.1) % Plt Count 230 (130-400) 10^3/c mm MPV 12.2 H (7.4-10.4) fL Neut % (Auto) 65.7 % Lymph % (Auto) 21.6 % [place] % (Auto) 8.5 % Eos % (Auto) 3.3 % Baso % (Auto) 0.7 % Neut # (Auto) 6.31 (1.8-7.7) 10^3/u L Lymph # (Auto) 2.1 (0.8-4.8) 10^3/u L [place] # (Auto) 0.8 (0.2-0.9) 10^3/u L Eos # (Auto) 0.3 (0.0-0.8) 10^3/u L Baso # (Auto) 0.1 (0.0-0.1) 10^3/u L Nucleated RBC % (a uto) 0 % Nucleated RBCs # 0.0 /100WBC PT 13.90 (12.1-14.9) SECO NDS INR 1.04 (0.8-1.2) APTT 27.1 (23.9-36.7) SECO NDS Sodium 137 (136-145) mmol/L Potassium 4.2 (3.5-5.1) mmol/L Chloride 100 (98-107) mmol/L Carbon Dioxide 24 (22-29) mmol/L Anion Gap 17.2 (5-19) BUN 44 H (8-23) mg/dL Creatinine 3.2 H (0.5-0.9) mg/dL GFR Calculation Not Reportable Glucose 124 H (65-115) mg/dL Calculated Osmolal ity 297 H (285-295) mOsm/k g Calcium 9.7 (8.5-10.5) mg/dL Magnesium 2.0 (1.7-2.3) mg/dL Total Bilirubin 0.5 (0.15-1.2) mg/dL AST 14 (0-32) U/L ALT 13 (0-33) U/L Alkaline Phosphata se 98 (35-105) IU/L Troponin T Gen 5 n g/L (0-10) ng/L NT-Pro-B Natriuret Pep 1907 H (0-450) pg/mL Total Protein 6.6 (6.6-8.7) g/dL Albumin 4.5 (3.5-5.2) g/dL Globulin 2.1 (1.3-4.6) g/dL Urine Color (Yellow) Urine Appearance (CLEAR) Urine pH (5-7) Ur Specific Gravit y (1.005-1.030) Urine Protein (Negative) Urine Glucose (UA) (Normal) Urine Ketones (Negative) Urine Blood (Negative) Urine Nitrate (Negative) Urine Bilirubin (Negative) Urine Urobilinogen (Negative) mg/dL Ur Leukocyte Vanessa ase (Negative) Urine RBC (0-2) /hpf Urine WBC (0-5) /hpf Ur Squamous Epith Cells (0-5) /hpf Amorphous Sediment Urine Bacteria (NONE) /hpf Urine Mucus /hpf 01/04/21 01/04/21 Range/Units 12:57 12:57 WBC (4.0-10.0) 10^3/ uL RBC (4.1-5.3) 10^6/u L Hgb (11.5-15.3) g/dL Hct (37.0-47.0) % MCV (81-99) fL MCH (28.0-34.0) pg MCHC (30.0-36.0) g/dL RDW (12.1-15.1) % Plt Count (130-400) 10^3/c mm MPV (7.4-10.4) fL Neut % (Auto) % Lymph % (Auto) % [place] % (Auto) % Eos % (Auto) % Baso % (Auto) % Neut # (Auto) (1.8-7.7) 10^3/u L Lymph # (Auto) (0.8-4.8) 10^3/u L [place] # (Auto) (0.2-0.9) 10^3/u L Eos # (Auto) (0.0-0.8) 10^3/u L Baso # (Auto) (0.0-0.1) 10^3/u L Nucleated RBC % (a uto) % Nucleated RBCs # /100WBC PT (12.1-14.9) SECO NDS INR (0.8-1.2) APTT (23.9-36.7) SECO NDS Sodium (136-145) mmol/L Potassium (3.5-5.1) mmol/L Chloride (98-107) mmol/L Carbon Dioxide (22-29) mmol/L Anion Gap (5-19) BUN (8-23) mg/dL Creatinine (0.5-0.9) mg/dL GFR Calculation Glucose (65-115) mg/dL Calculated Osmolal ity (285-295) mOsm/k g Calcium (8.5-10.5) mg/dL Magnesium (1.7-2.3) mg/dL Total Bilirubin (0.15-1.2) mg/dL AST (0-32) U/L ALT (0-33) U/L Alkaline Phosphata se (35-105) IU/L Troponin T Gen 5 n g/L 50 H (0-10) ng/L NT-Pro-B Natriuret Pep (0-450) pg/mL Total Protein (6.6-8.7) g/dL Albumin (3.5-5.2) g/dL Globulin (1.3-4.6) g/dL Urine Color Yellow (Yellow) Urine Appearance Clear (CLEAR) Urine pH 5 (5-7) Ur Specific Gravit y 1.015 (1.005-1.030) Urine Protein 1+ H (Negative) Urine Glucose (UA) Norm (Normal) Urine Ketones Negative (Negative) Urine Blood Neg (Negative) Urine Nitrate Negative (Negative) Urine Bilirubin Neg (Negative) Urine Urobilinogen Norm (Negative) mg/dL Ur Leukocyte Vanessa ase Negative (Negative) Urine RBC None (0-2) /hpf Urine WBC None (0-5) /hpf Ur Squamous Epith Cells 0-4 H (0-5) /hpf Amorphous Sediment Not Reportable Urine Bacteria 2+ H (NONE) /hpf Urine Mucus Trace /hpf EKG Data^: EKG 1: Attestation: I personally reviewed and interpreted this EKG as follows: EKG interpretation date: 01/04/21 EKG interpretation time: 12:54 Interpretation: Sinus, 1st degree block OR 223, new incomplete rbbb, Qwaves since 2017 Discharge Plan Discharge Patient Disposition: Admitted As Inpatient Clinical Impression: Hyponatremia, Weakness of both lower extremities CKD (chronic kidney disease) Qualifiers: Chronic kidney disease stage: unspecified stage Qualified Code(s): N18.9 - Chronic kidney disease, unspecified Syncope Qualifiers: Syncope type: unspecified Qualified Code(s): R55 - Syncope and collapse Condition: Stable Coding Level of Care Code ED Implementation Architect for [facility] Fwd Exam Comprehensive
[2021-01-04 13:18] LABS: Basophils # 0.1 10^3/uL (0.0-0.1); Basophils % 0.7 %; Eosinophils # 0.3 10^3/uL (0.0-0.8); Eosinophils % 3.3 %; Hematocrit 32.7 % (37.0-47.0); Hemoglobin 10.7 g/dL (11.5-15.3); Lymphocytes # 2.1 10^3/uL (0.8-4.8); Lymphocytes % 21.6 %; Mean Corpuscular HGB Conc 32.7 g/dL (30.0-36.0); Mean Corpuscular Hemoglobin 29.9 pg (28.0-34.0); Mean Corpuscular Volume 91.3 fL (81-99); Mean Platelet Volume 12.2 fL (7.4-10.4); Monocytes # 0.8 10^3/uL (0.2-0.9); Monocytes % 8.5 %; Neutrophils # 6.31 10^3/uL (1.8-7.7); Neutrophils % 65.7 %; Nucleated Red Blood Cells % 0 %; Platelet Count 230 10^3/cmm (130-400); Red Blood Count 3.58 10^6/uL (4.1-5.3); Red Cell Distribution Width 13.6 % (12.1-15.1); White Blood Count 9.6 10^3/uL (4.0-10.0)
[2021-01-04 13:27] LABS: INR 1.04 (0.8-1.2); Partial Thromboplastin Time 27.1 SECONDS (23.9-36.7)
[2021-01-04 13:30] LABS: Add Urine Culture? No; Add Urine Microscopic? YES; Bacteria Urine 2+ /hpf; Bilirubin Urine Neg (Negative); Blood Urine Neg (Negative); Glucose Urine UA Norm (Normal); Ketones Urine Negative (Negative); Leukocyte Esterase Urine Negative (Negative); Mucus Urine TRACE /hpf; Nitrate Urine Negative (Negative); Protein Urine 1+ (Negative); Specific Gravity, Urine 1.015 (1.005-1.030); Squamous Epithelial Cell Urine 0-4 /hpf (0-5); Urine Appearance Clear (CLEAR); Urine Color Yellow (Yellow); Urobilinogen Urine Norm (Negative); pH Urine 5 (5-7)
[2021-01-04 13:33] LABS: Troponin T (5th) Once 50 ng/L (0-10)
[2021-01-04 13:41] LABS: Alanine Aminotransferase 13 U/L (0-33); Albumin Level 4.5 g/dL (3.5-5.2); Alkaline Phosphatase 98 IU/L (35-105); Anion Gap 17.2 (5-19); Aspartate Amino Transferase 14 U/L (0-32); Blood Urea Nitrogen 44 mg/dL (8-23); Calcium 9.7 mg/dL (8.5-10.5); Carbon Dioxide 24 mmol/L (22-29); Chloride 100 mmol/L (98-107); Globulin 2.1 g/dL (1.3-4.6); Glucose 124 mg/dL (65-115); NT Pro B Type Natriuretic Pept 1907 pg/mL (0-450); Osmolality Calculated 297 mOsm/kg (285-295); Potassium 4.2 mmol/L (3.5-5.1); Sodium 137 mmol/L (136-145); Total Bilirubin 0.5 mg/dL (0.15-1.2); Total Protein 6.6 g/dL (6.6-8.7)
--- NOTE | 2021-01-04 15:42 | PM.HP ---
Providers/Chief Complaint Primary Care Provider: Yazmin Boland APN Chief Complaint: SYNCOPE, FALL, LEG PAIN History of Present Illness Monica Mendez is a 85 year old female with a past medical history of insulin-dependent type 2 diabetes mellitus, hypertension, CKD, non-Hodgkin's lymphoma in remission, hyperlipidemia, who presents to [facility] for sudden onset of bilateral lower extremity weakness and syncopal event Patient tells me that she lives in [facility] with her , normally can ambulate on her own, ambulating with a walker, no recent weakness, no recent paresthesias, recent falls, no recent injuries, no recent illness, she did receive a Covid vaccine second part over 2 weeks ago. She tells me this morning, she was walking at home, when suddenly she felt weak and fell to the floor, she passed out for 2 seconds according to bystanders, no seizure-like episodes reported, no post ictal confusion, she was alert right after, no headache, no blurry vision, no chest pain, no palpitations, no diaphoresis. However she was not able to get up off the floor, she felt weak in both of the legs, so she crawled over to a chair, and she was barely able to get into the chair due to bilateral lower extremity weakness, she tells me that she could not bear weight in the lower extremities, it just felt weird she says. No numbness or tingling per se just that she cannot get up, no trouble coordinating per se, in bed she was able to move her toes, lift her leg slightly off the bed, but was limited by a lot of hip pain, was able to rotate both bilateral lower extremities, no upper extremity weakness, no facial droop, slurring of her speech, no urinary bowel incontinence, no saddle or perineal anesthesia. She tells me is just weird that she cannot suddenly walk anymore. Review of Systems Const: Denies: fever(s), chills, fatigue or malaise Eyes: Denies: change in vision or blurry vision ENMT: Denies: nasal congestion Card: Denies: chest pain or palpitations Resp: Denies: dyspnea, productive cough, non-productive cough or wheezing GI: Denies: abdominal pain, nausea, vomiting, hematemesis, diarrhea, constipation, hematochezia or melena : Denies: flank pain, dysuria or urinary frequency Musc: Denies: neck pain, back pain or extremity pain Skin/Breast: Denies: rash Neuro: Reports: weakness in extremities and difficulty walking; Denies: headache(s), numbness in extremities, lack of coordination, frequent falls, dizziness, vertigo, confusion, behavioral changes, Slurred speech present, difficulty communicating thoughts, seizure-like activity, involuntary movements or restless legs Psych: Denies: anxiety or depression Endo: Denies: polyuria or polydipsia Medications/Allergies Home Medications Medication Instructions Recorded Confirmed Last Taken Type Basaglar IndigoikPen U-100 Insulin 50 unit SUBCUT DAILY 04/01/20 01/04/21 01/03/21 History amlodipine 10 mg PO DAILY@1100,209904/01/20 01/04/21 01/03/21 History carvedilol 25 mg PO BID@1100,209904/01/20 01/04/21 01/03/21 History cinnamon bark [Cinnamon] 1,000 mg PO DAILY@1100 04/01/20 01/04/21 01/03/21 History ferrous sulfate [iron] 325 mg PO BID@1100,209904/01/20 01/04/21 01/03/21 History gabapentin 600 mg PO BID@1100,209904/01/20 01/04/21 01/03/21 History multivitamin 1 tab PO DAILY@1100,209904/01/20 01/04/21 01/03/21 History simvastatin 40 mg PO DAILY@1100 04/01/20 01/04/21 01/03/21 History omeprazole 20 mg PO BID@1100,209901/04/21 01/04/21 Unknown History Allergies Allergy/AdvReac Type Severity Reaction Status Date / Time No Known Allergies Allergy Unverified 01/04/21 12:21 PFSH Acute PFSH: Medical History Anemia CKD (chronic kidney disease) Hyperlipidemia Hypertension Non Hodgkin's lymphoma Peripheral neuropathy Type 2 diabetes mellitus Surgical History H/O lymph node biopsy H/O total hysterectomy with bilateral salpingo-oophorectomy (BSO) History of bilateral knee replacement History of bladder suspension procedure Family History Other CAD (coronary artery disease) Social History Smoking and tobacco status: never smoked Alcohol intake: never Household members: family Housing: House Marital status: Vitals/I&O/Wt Last Vital Signs Temp 99.1 F 01/04/21 12:15 Pulse 69 01/04/21 12:15 Resp 16 01/04/21 12:15 BP 148/80 01/04/21 12:15 Pulse Ox 97 01/04/21 12:15 Weight last 48 hrs Weight 103.419 kg Physical Exam Const: COMMON NORMALS: no acute distress and patient oriented x3 GENERAL APPEARANCE: cooperative and comfortable HENMT: COMMON NORMALS: normocephalic HEAD & SCALP: normocephalic Eye: COMMON NORMALS: Equal, round and reactive pupils present and EOMs intact bilaterally GENERAL EYE: appearance normal, both eyes and all related structures PUPIL: Yes Equal, round and reactive pupils present Neck/C-Spine: COMMON NORMALS: full ROM, no lymphadenopathy, no JVD and Thyroid normal THYROID: Thyroid normal Lymph: LYMPHATIC: no lymphadenopathy noted Resp: COMMON NORMALS: normal respiratory effort, No retractions, No use of accessory muscles and clear to auscultation bilaterally AUSCULTATION: clear to auscultation bilaterally Cardio: COMMON NORMALS: no JVD, regular rate, regular rhythm, S1 normal heart sound present, S2 normal heart sound present, No gallops present (Cardio), No clicks present (Cardio) and No murmurs present (Cardio) RATE: regular rate RHYTHM: regular rhythm HEART SOUNDS: S1 normal heart sound present and S2 normal heart sound present GI: COMMON NORMALS: Normal to inspection, nondistended, normoactive bowel sounds present, Soft to palpation, non-tender and No hepatosplenomegaly present PALPATION: Yes Soft to palpation and Yes No hepatosplenomegaly present Extremity: COMMON NORMALS: normal to inspection, full ROM and no pedal edema Neuro: COMMON NORMALS: patient oriented x3, CN's II-XII intact bilaterally, no focal motor deficits and no sensory deficits noted OTHER: Bilateral lower extremities, can wiggle her toes, good plantar and dorsiflexion, no loss of sensation, is able to rotate her toes, she is able to lift her vang off the bed, but is weak bilaterally, strength is roughly 2 out of 5, is limited significantly by hip pain, does have strength in both quadricep muscles, strength 2 out of 5, limited again by hip pain, cannot do [id number] as she is limited by hip pain Psych: COMMON NORMALS: mental status grossly normal, Normal thought process present and cooperative THOUGHT PROCESS: Normal thought process present Data : 01/04/21 12:57 01/04/21 12:57 A&P Assessment and plan (1) Syncope: Syncopal episode: -Serial troponins, serial EKGs, telemetry monitoring -Cardiac echo, carotid artery ultrasound -Neurochecks, aspiration precautions, seizure precautions -Lovenox for DVT prophylaxis -I have confirmed with patient that she is DNR/DNI Status: Acute Qualifiers: Syncope type: unspecified Qualified Code(s): R55 - Syncope and collapse (2) Weakness of both lower extremities: -Certainly a strange occurrence -She went from suddenly from walking to not walking -We will do a CT scan of the lumbar spine, to evaluate for possible cauda equina, but no perianal or saddle anesthesia, no urinary or bowel incontinence -B1, B12, EVANGELINA, TSH -No focal neurologic deficits, neurochecks -The other thought is could she have Guillain-Canela? syndrome, patient tells me that she was walking fine before, does use a walker, and suddenly she was not able to walk anymore, which does not exactly fit the progression of Guillain-Canela?. However if patient continues to be weak in the next 24 hours or sudden progression of weakness will pursue lumbar puncture, consult neurology -PT OT Status: Acute (3) Hyperlipidemia: Status: Acute (4) Type 2 diabetes mellitus: -Continue Lantus 50 units daily, sliding scale Status: Acute (5) Hypertension: Status: Acute (6) CKD (chronic kidney disease): Status: Acute Qualifiers: Chronic kidney disease stage: unspecified stage Qualified Code(s): N18.9 - Chronic kidney disease, unspecified Attestations Medical Necessity Statement*: She requires hospitalization, outpatient with observation for syncope, weakness of bilateral lower extremities Coding Level of Care Code Acute Wireline Field Operator for [facility] Fw Diagnoses Syncope R55 Syncope type: unspecified Weakness of both lower extremities R29.898 Hyperlipidemia E78.5 Type 2 diabetes mellitus E11.9 Hypertension I10 CKD (chronic kidney disease) N18.9 Chronic kidney disease stage: unspecified stage
[2021-01-04 17:15] VITALS: BP 145/82; PULSE 70; RESP 18; O2SAT 98
[2021-01-04 17:17] VITALS: BP 145/82; PULSE 70; RESP 18; O2SAT 98
[2021-01-04 17:24] VITALS: BP 145/82; PULSE 70; RESP 18; O2SAT 98
--- NOTE | 2021-01-04 18:17 | CTR_ITS ---
PROCEDURE INFORMATION: Exam: CT Lumbar Spine Without Contrast Exam date and time: 01/04/2021 6:41 PM Age: 85 years old Clinical indication: Injury or trauma; Blunt trauma (contusions or hematomas); Injury details: Fall, low back pain with bilat leg pain and weakness; Additional info: Bilateral le weakness TECHNIQUE: Imaging protocol: Computed tomography images of the lumbar spine without contrast. Radiation optimization: All CT scans at this facility use at least one of these dose optimization techniques: automated exposure control; mA and/or kV adjustment per patient size (includes targeted exams where dose is matched to clinical indication); or iterative reconstruction. COMPARISON: [place] [id number] 11/22/2014 9:56 PM RADIATION DOSE METRICS: Total DLP (mGy-cm): 2511.02 FINDINGS: Vertebrae: Negative for fracture. No traumatic malalignment. Grade 1 L4-L5 spondylolisthesis.The lumbar spine demonstrates marked discogenic and apophyseal joint degenerative changes at multiple levels. Sclerotic lesion within L2 vertebral body. No aggressive, lytic bone lesion. Osteoporosis. Bulky facet joint arthritis diffusely. At least moderate severity spinal canal stenosis at L2-L3. At least moderate severity spinal canal stenosis at L3-L4. Mild to moderate spinal canal stenosis at L4-L5. Broad-based posterior disc bulges at each level. Kidneys and ureters: Bilateral renal cortical atrophy. Vasculature: Diffuse atherosclerosis. Soft tissues: Paraspinal soft tissues are unremarkable. CT/CT lumbar spine wo con* [id number] IMPRESSION: 1. Negative for acute lumbar spine abnormality. 2. Severe diffuse spondyloarthropathy changes. Radiation Dose CTDIVOL = (mGy): DLP = 2511.02 (mGy-cm)
[2021-01-04 18:30] VITALS: O2SAT 97
[2021-01-04 19:45] LABS: Erythrocyte Sedimentation Rate 67 mm/hr (0-15)
[2021-01-04 19:57] LABS: C Reactive Protein 34.8 mg/L (0.0-4.9); Thyroid Stimulating Hormone 1.99 uIU/mL (0.27-4.20); Vitamin B12 812 pg/mL (232-1245)
[2021-01-04 20:00] VITALS: BP 168/80; PULSE 78; RESP 17; TEMP 37.3; O2SAT 96
[2021-01-04 22:19] LABS: Glucose Point of Care 165 mg/dL (70-110)
[2021-01-04] MEDS: gabapentin 300 mg Capsule 600 MG PO (22:44)
[2021-01-04] MEDS: ferrous sulfate EC 325 mg Tablet PO (22:45)
[2021-01-04] MEDS: pantoprazole DR 40 mg Tablet PO (22:45)
[2021-01-04] MEDS: amlodipine 10 mg Tablet PO (22:45)
[2021-01-04] MEDS: carvedilol 25 mg Tablet PO (22:46)
[2021-01-05] VITALS (10 sets, daily range): BP systolic 121–143; BP diastolic 58–68; PULSE 67–78; RESP 17–20; TEMP 36.9–37.7; O2SAT 91–98
[2021-01-05 06:16] LABS: Basophils # 0.1 10^3/uL (0.0-0.1); Basophils % 0.6 %; Eosinophils # 0.2 10^3/uL (0.0-0.8); Eosinophils % 2.6 %; Hematocrit 32.6 % (37.0-47.0); Hemoglobin 9.9 g/dL (11.5-15.3); Lymphocytes # 2.1 10^3/uL (0.8-4.8); Lymphocytes % 25.6 %; Mean Corpuscular HGB Conc 30.4 g/dL (30.0-36.0); Mean Corpuscular Hemoglobin 29.6 pg (28.0-34.0); Mean Corpuscular Volume 97.3 fL (81-99); Mean Platelet Volume 12.1 fL (7.4-10.4); Monocytes # 0.8 10^3/uL (0.2-0.9); Monocytes % 10.3 %; Neutrophils # 4.93 10^3/uL (1.8-7.7); Neutrophils % 60.7 %; Nucleated Red Blood Cells % 0 %; Platelet Count 223 10^3/cmm (130-400); Red Blood Count 3.35 10^6/uL (4.1-5.3); Red Cell Distribution Width 13.8 % (12.1-15.1); White Blood Count 8.1 10^3/uL (4.0-10.0)
[2021-01-05 06:40] LABS: Glucose Point of Care 130 mg/dL (70-110)
[2021-01-05 06:54] LABS: Alanine Aminotransferase 10 U/L (0-33); Albumin Level 3.7 g/dL (3.5-5.2); Alkaline Phosphatase 83 IU/L (35-105); Anion Gap 15.8 (5-19); Aspartate Amino Transferase 13 U/L (0-32); Blood Urea Nitrogen 40 mg/dL (8-23); Calcium 9.3 mg/dL (8.5-10.5); Carbon Dioxide 22 mmol/L (22-29); Chloride 104 mmol/L (98-107); Globulin 2.4 g/dL (1.3-4.6); Glucose 110 mg/dL (65-115); Magnesium 1.9 mg/dL (1.7-2.3); Osmolality Calculated 296 mOsm/kg (285-295); Phosphorus 3.9 mg/dL (2.5-4.5); Potassium 3.8 mmol/L (3.5-5.1); Sodium 138 mmol/L (136-145); Total Bilirubin 0.5 mg/dL (0.15-1.2); Total Protein 6.1 g/dL (6.6-8.7)
--- NOTE | 2021-01-05 07:00 | USCV_ITS ---
Monica Mendez Age: 85 Gender: F : 1935 Exam Date: 01/05/2021 06:19 Ordering Phys: Paul Rodriguez MD Technologist: Shantal Steward Exam Location: [facility] [place] Indication: syncope BP: / HR: Rhythm: Sinus Technical Quality: Adequate MEASUREMENTS (Male / Female) Normal Values 2D ECHO LV Diastolic Diameter PLAX 4.3 cm 4.2 - 5.9 / 3.9 - 5.3 cm LV Systolic Diameter PLAX 3.1 cm LV Chamber Size 2.4 cm IVS Diastolic Thickness 1.6 cm 0.6 - 1.0 / 0.6 - 0.9 cm IVS Systolic Thickness 1.7 cm LVPW Diastolic Thickness 1.5 cm 0.6 - 1.0 / 0.6 - 0.9 cm LVPW Systolic Thickness 2.1 cm RV Chamber Size 1.7 cm LVOT Diameter 2.0 cm LV Ejection Fraction 2D Teich 52.6 % LV Ejection Fraction MOD 2C 38.1 % LV Ejection Fraction 2C AL 38.7 % LA Diameter 4.4 cm LA Width 3.8 cm LA Height 6.2 cm Aorta at Sinotubular Diameter 2.6 cm M-MODE LV Diastolic Diameter MM 5.1 cm 4.2 - 5.9 / 3.9 - 5.3 cm LV Systolic Diameter MM 2.1 cm LV Ejection Fraction MM Teich 88.0 % IVS Diastolic Thickness MM 0.9 cm 0.6 - 1.0 / 0.6 - 0.9 cm IVS Systolic Thickness MM 1.7 cm LVPW Diastolic Thickness MM 1.3 cm 0.6 - 1.0 / 0.6 - 0.9 cm LVPW Systolic Thickness MM 1.3 cm Aortic Annulus Diameter 3.3 cm LA Ao Ratio MM 1.1 MV E Point Septal Separation 1.1 cm DOPPLER AV Peak Velocity 251.7 cm/s LVOT Peak Velocity 121.3 cm/s AV Area Cont Eq vti 1.8 cm squared AV Area Cont Eq pk 1.6 cm squared MV Area PHT 2.8 cm squared Mitral E to A Ratio 0.9 MV E' Velocity 74.5 cm/s Mitral E to MV E' Ratio 22.4 Mitral E to LV E' Lateral Ratio 23.5 Mitral E to LV E' Septal Ratio 21.7 TR Peak Velocity 211.5 cm/s TR Peak Gradient 17.9 mmHg TV Peak E Velocity 41.0 cm/s Right Atrial Pressure 3.0 mmHg Pulmonary Artery Systolic Pressu 20.9 mmHg PV Peak Velocity 97.0 cm/s RV Acceleration Time 0.1 s RV Ejection Time 0.4 s RV AcT/ET 0.4 FINDINGS Left Ventricle Normal left ventricular size and systolic function, EF 60%. Grade III/IV diastolic dysfunction (restrictive filling pattern), severely elevated filling pressures. No regional wall motion abnormalities. Moderate left ventricular hypertrophy. Right Ventricle Some hypertrophy of the right ventricular free wall. Possibly normal RV ejection fraction Right Atrium Not visualized well Left Atrium Moderately increased left atrial size. Mitral Valve Thickened mitral valve. Moderate mitral annular calcification. Aortic Valve Thickened aortic valve. Mild aortic valve stenosis, mean gradient 12.3 mmHg, REINALDO 1.8 cm squared. Tricuspid Valve Tricuspid valve not well visualized. Pulmonic Valve Pulmonic valve not well visualized. Pericardium Normal pericardium without effusion. Aorta Normal ascending aorta dimension. CONCLUSIONS Normal left ventricular size and systolic function, EF 60%. Grade III/IV diastolic dysfunction (restrictive filling pattern), severely elevated filling pressures. No regional wall motion abnormalities. Moderate left ventricular hypertrophy. Moderately increased left atrial size. Thickened mitral valve. Moderate mitral annular calcification. Mild to moderate mitral regurgitation, could be an underestimation because of the poor Doppler signals Mild aortic valve stenosis, mean gradient 12.3 mmHg, REINALDO 1.8 cm squared. Tricuspid and pulmonic valves could not visualize well Technically difficult study because of the poor ultrasonic window. Comparison with the previous study from 11/23/2014 is difficult because of the difference in technical quality Dr Bashir Gusman MD [facility] (Electronically Signed) Final Date: 05 January 2021 19:54 S
--- NOTE | 2021-01-05 07:00 | USCV_ITS ---
Vanessa, Monica Age: 85 Gender: F : 1935 Exam Date: 01/05/2021 06:34 Ordering Phys: Paul Rodriguez MD Technologist: Shantal Steward [place] [facility] [place]: SYNCOPE Risk Factors: Previous Vascular Surgery: Right Brachial BP: / Left Brachial BP: / Right Left Velocity (cm/s) Spectral Plaque Velocity (cm/s) Spectral Plaque Syst/Diast Broadening Syst/Diast Broadening 51.80/ 10.60 Prox CCA 61.20 / 13.10 56.50/ 8.70 Mid CCA 66.60 / 13.10 38.50/ 10.50 Distal CCA 71.00 / 14.20 58.30/ 20.90 Prox ICA 40.10 / 13.10 56.80/ 19.40 Mid ICA 56.00 / 16.10 35.00/ 12.00 Distal ICA 52.50 / 13.30 113.00 ECA 72.30 1.03 ICA/CCA 0.84 Antegrade Vertebral Antegrade 38.20/ 12.00 cm/s 41.90/ 11.10 cm/s Tri Subclavian Tri 116.9 94.80 0 FINDINGS Mild to moderate dense plaques baseline artifacts, need to repeat the right bifurcation and proximal internal carotid artery. Mild to moderate dense plaques at the left bifurcation and proximal internal carotid artery. Normal Doppler flow velocities in the external carotid arteries and vertebral arteries CONCLUSIONS Mild to moderate dense plaques at the bifurcations and proximal internal carotid arteries bilaterally suggesting less than 50% stenosis. No significant stenosis in the external carotid and subclavian arteries, based on the Doppler features No previous studies are available for comparison. Dr Bashir Gusman MD [facility] (Electronically Signed) Final Date: 06 January 2021 23:02 S
--- NOTE | 2021-01-05 10:25 | PC.CHAP ---
Pastoral Care Encounter/Spiritual Assessment Type of Contact [] Declined die finisher forging visit [] Patient/Family/Request visit [] Outpatient visit [] Follow-up visit [] Physician referral [] Code/Alert [x] Routine visit [] Staff referral [] Actively dying [] Patient sleeping [] Family support [] [] Out of room [] Palliative care [] [] Receiving care in room [] Pre-surgical visit [] Trauma [] Long length of stay [] ICU visit [] Other: Relational/Emotional Strength [x] Patient feels connected with others/family/visitors/staff [] Distress [] Loneliness/isolation [] Abandonment Spirituality of Patient [x] Person of Alee [x] Attends Jain of their Alee [x] Believes in Prayer [] Reads Bible or Adventist materials [] There are Spiritual issues to be addressed Heliarc Welder Interventions [x] Prayer [x] Active listening [x] Non-anxious presence [x] Spiritual/emotional support [] Crisis/trauma care [] Spiritual counseling [] Bereavement support [] Provided bereavement packet [] Provided Bible/devotional materials [] Provided toy/stuffed animal, coloring book to patient or family member [] Provided Communion [] Anointing/[place] [] Salvation [x] Completed spiritual assessment [] Other: Impact on Illness or Injury [] Angry [] Fearful [] Anxious [] Often cries [] Exhaustion [] Unable to work [] Unable to attend holiness [] Unable to walk/stand [] Unable to read [] Unable to drive [] Unable to eat/drink [] Unable to sleep [] Unable to be with family [] Patient intubated [] Other: Summary Time spent with patient 10 min
[2021-01-05] MEDS: ferrous sulfate EC 325 mg Tablet PO ×2 (11:09→21:51)
[2021-01-05] MEDS: atorvastatin 40 mg Tablet 20 MG PO (11:10)
[2021-01-05] MEDS: pantoprazole DR 40 mg Tablet PO ×2 (11:10→21:50)
[2021-01-05] MEDS: gabapentin 300 mg Capsule 600 MG PO ×2 (11:10→21:51)
[2021-01-05] MEDS: amlodipine 10 mg Tablet PO ×2 (11:10→21:50)
[2021-01-05] MEDS: carvedilol 25 mg Tablet PO ×2 (11:10→21:50)
[2021-01-05 11:34] LABS: Glucose Point of Care 353 mg/dL (70-110)
--- NOTE | 2021-01-05 12:54 | PM.PN ---
Subjective Subjective: Interval history: This morning patient was examined, she is alert oriented x3, follows all commands, no trouble breathing, she continues to feel weakness in bilateral extremities, she tells me that she just cannot move her lower extremities, she did get up to the side of bed with physical therapy, was quite weak, but did not attempt to get patient up out of bed She tells me that she can move her lower extremities, but they feel weak, she does have some mild sensory losses, she can move her upper extremities without any problem, she did have a low-grade temperature this morning, she does report that she had the Covid vaccine, second part, roughly 2 weeks ago Vitals/I&O/Wt Last Vital Signs Temp 99.6 F 01/05/21 12:00 Pulse 70 01/05/21 12:00 Resp 18 01/05/21 12:00 BP 135/66 01/05/21 12:00 Pulse Ox 95 01/05/21 12:00 01/04/21 01/05/21 01/05/21 22:59 06:59 14:59 Intake Total 480 / 480 Balance 480 / 480 Weight last 48 hrs Weight 103.419 kg Physical Exam Const: COMMON NORMALS: no acute distress and patient oriented x3 HENMT: COMMON NORMALS: normocephalic HEAD & SCALP: normocephalic Neck/C-Spine: COMMON NORMALS: no JVD Resp: COMMON NORMALS: normal respiratory effort, No retractions, No use of accessory muscles and clear to auscultation bilaterally AUSCULTATION: clear to auscultation bilaterally Cardio: COMMON NORMALS: no JVD, regular rate, regular rhythm, S1 normal heart sound present and S2 normal heart sound present RATE: regular rate RHYTHM: regular rhythm HEART SOUNDS: S1 normal heart sound present and S2 normal heart sound present GI: COMMON NORMALS: Normal to inspection, nondistended, normoactive bowel sounds present, Soft to palpation, non-tender, No hepatosplenomegaly present, no masses and no bruits PALPATION: Yes Soft to palpation and Yes No hepatosplenomegaly present Extremity: COMMON NORMALS: capillary refill normal and no pedal edema Neuro: COMMON NORMALS: patient oriented x3 OTHER: -Follows all commands -Bilateral extremities, strength dorsi/ plantarflexion 4 out of 5 bilaterally -Strength in shins and calf is 3 out of 5 -Strength in quadriceps is 3 out of 5 -Mild bilateral sensory losses at the vang level -Has bilateral knee replacement Psych: COMMON NORMALS: mental status grossly normal Data : 01/05/21 05:33 01/05/21 05:33 Micro: Microbiology 01/04/21 18:40 Blood Culture - Preliminary Blood SPECIMEN COLLECTED 01/04/21 18:30 Blood Culture - Preliminary Blood SPECIMEN COLLECTED A&P Assessment and plan (1) Syncope: Syncopal episode: Yes -First troponin 50, normal serial troponins were drawn -Incomplete RBBB, Q waves in V1 to V4 -Serial troponins, seri EKG does show first-degree AV block, al EKGs, telemetry monitoring -Cardiac echo, carotid artery ultrasound pending -Neurochecks, aspiration precautions, seizure precautions -Lovenox for DVT prophylaxis -I have confirmed with patient that she is DNR/DNI Status: Acute Qualifiers: Syncope type: unspecified Qualified Code(s): R55 - Syncope and collapse (2) Weakness of both lower extremities: -Certainly a strange occurrence -Does have have a low-grade temperature 99.9, some sensory loss is up to the vang level, has bilateral knee replacement, does have loss of ankle reflexes, difficult to do patellar reflex, continues to have motor strength losses on dorsi and plantar flexion, quadricep weakness, weakness in the lower extremity -She went from suddenly from walking to not walking -CT scan of the lumbar spine does show grade 1 L4-L5 spondylitis, moderate severity spinal canal stenosis at L2, L3, moderate severity spinal canal stenosis at L3-L4, mild to moderate spinal canal stenosis L4-L5, broad based posterior disc bulges at each level -Patient has no complaints of profound back pain, no back pain on falling, no significant complaints of chronic back pain -B1 pending -B12, EVANGELINA within normal limits -No focal neurologic deficits, neurochecks -The other thought is could she have Guillain-Canela? syndrome, patient tells me that she was walking fine before, does use a walker, and suddenly she was not able to walk anymore, which does not exactly fit the progression of Guillain-Ulysses but she did receive the second part of the Covid vaccine 2 weeks ago. we will consult neurology, consider LP, consider MRI -PT OT Status: Acute (3) Hyperlipidemia: Status: Acute (4) Type 2 diabetes mellitus: -Continue Lantus 50 units daily, sliding scale Status: Acute (5) Hypertension: Status: Acute (6) CKD (chronic kidney disease): Status: Acute Qualifiers: Chronic kidney disease stage: unspecified stage Qualified Code(s): N18.9 - Chronic kidney disease, unspecified Attestations Medical Necessity Statement*: She requires hospitalization, inpatient, greater than 2 midnights for syncope, bilateral lower extremity weakness Coding Level of Care Code Acute Communications Tower Technician for [facility] Diagnoses Syncope R55 Syncope type: unspecified Weakness of both lower extremities R29.898 Hyperlipidemia E78.5 Type 2 diabetes mellitus E11.9 Hypertension I10 CKD (chronic kidney disease) N18.9 Chronic kidney disease stage: unspecified stage
--- NOTE | 2021-01-05 12:58 | ECG_ITS ---
[facility] ED Test Date: 2021-01-05 Pat Name: Monica Mendez Department: Room: 259 Gender: Female Animal Killer: : 1935 Requested By: Paul Rodriguez Order Number: [id number] Ilana MD: Nickie Daniel M.D. Measurements Intervals [place] Rate: 69 P: 79 NC: 224 QRS: -48 QRSD: 107 T: 15 QT: 417 QTc: 449 Interpretive Statements SINUS RHYTHM WITH FIRST DEGREE AV BLOCK LEFT ANTERIOR FASCICULAR BLOCK [QRS AXIS <= -45, QR IN I, RS IN II] Compared to ECG 01/04/2021 12:54:35 Left anterior fascicular block now present Left-axis deviation no longer present Incomplete right bundle-branch block no longer present Myocardial infarct finding no longer present Electronically Signed On 01-08-2021 5:22:06 CDT by Nickie Daniel M.D. [id number]
[2021-01-05 14:21] LABS: Troponin(5th) Baseline 60 ng/L (0-10)
--- NOTE | 2021-01-05 14:58 | ECG_ITS ---
[facility] ED Test Date: 2021-01-05 Pat Name: Monica Mendez Department: Room: 259 Gender: Female Medical Collections Representative: : 1935 Requested By: Paul Rodriguez Order Number: [id number] Ilana MD: Nickie Daniel M.D. Measurements Intervals [place] Rate: 70 P: 71 [place]: 217 QRS: -46 QRSD: 111 T: 40 QT: 403 QTc: 436 Interpretive Statements SINUS RHYTHM WITH SINUS ARRHYTHMIA WITH FIRST DEGREE AV BLOCK LEFT ANTERIOR FASCICULAR BLOCK [QRS AXIS <= -45, QR IN I, RS IN II] Compared to ECG 01/05/2021 13:53:34 No significant changes Electronically Signed On 01-08-2021 5:28:26 CDT by Nickie Daniel M.D. [id number]
[2021-01-05 15:54] LABS: Troponin 5 2HR 59.29 ng/L (0-10)
[2021-01-05 16:06] LABS: Troponin 5 2HR Delta -0.71 ABS# (0-10)
[2021-01-05 17:04] LABS: Glucose Point of Care 135 mg/dL (70-110)
--- NOTE | 2021-01-05 17:53 | P.CONIM_ITS ---
Providers/Reason For Consult Consulting Physican/Specialty*: Neurology Reason for Consult*: Leg weakness Attending Physician: Paul Rodriguez MD Primary Care Provider: Yazmin Boland APN History of Present Illness History of Present Illness Monica Mendez is a 85 year old woman who was admitted because her legs would not work. She came to the emergency department yesterday at noon complaining of pain in her legs and severe swelling of both legs. The legs were weak. She was talking with her cleaning lady when she felt like she lost consciousness and fell to the floor. She had to crawl to get to a chair to get back up. Dr. Hoover in the ER noted 3+ pitting edema in the legs and no focal findings. CBC was normal. Complete metabolic panel was unremarkable. Her BNP was markedly elevated at 1907. CBC showed anemia that is chronic. B12 was normal (812). CPK was not reviewed. Troponin was elevated. Dr. Rodriguez asked me to see her because her legs are still weak. CT scan of the head showed profound diffuse atrophy and white matter disease. 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 I reviewed those images and her spinal canal stenosis is pretty impressive. Reportedly she has not been incontinent as she has been passing urine. She clearly remembers what happened. She was in the middle of a sentence, talking with her life cycle assessment analyst when she lost consciousness and fell down. She had no warning. She has no idea what position she fell or how hard she fell. The life cycle assessment analyst told her that she was out for about 2 seconds. She has had pain in her low back since then although she was not complaining of it when she arrived yesterday. She has waxing and waning low back pain in the past. Her legs still feel weak to the point that she cannot bear weight. She has a long history of diabetes with numbness of the legs. I see 1 void mentioned this afternoon but PILI has not been recorded. Evaluation by physical therapy showed weakness in both legs but she was able to scoot to the bedside commode and stand with a walker and take some steps in place but she appeared weak. Review of Systems General: Reports: 10 or more systems reviewed and unremarkable except in HPI and below Const: Denies: fever(s) (Temp was 99 on arrival) Eyes: Denies: change in vision or blurry vision Card: Reports: edema; Denies: chest pain or irregular heart rhythm Resp: Denies: dyspnea GI: Denies: abdominal pain, nausea or vomiting : Denies: flank pain, difficulty voiding or urinary frequency Musc: Reports: back pain and extremity pain (Has pain below the knees on both sides) Neuro: Reports: numbness in extremities (Chronic), weakness in extremities (New) and difficulty walking; Denies: headache(s) Psych: Denies: anxiety or depression (Her has some type of neurologic disorder and is seeing a neurologis) Meds/Allergies Home Medications and Allergies Home Medications Medication Instructions Recorded Confirmed Last Taken Type Basaglar KwikPen U-100 Insulin 50 unit SUBCUT DAILY 04/01/20 01/04/21 01/03/21 History amlodipine 10 mg PO DAILY@1100,209904/01/20 01/04/21 01/03/21 History carvedilol 25 mg PO BID@1100,209904/01/20 01/04/21 01/03/21 History cinnamon bark [Cinnamon] 1,000 mg PO DAILY@1100 04/01/20 01/04/21 01/03/21 History ferrous sulfate [iron] 325 mg PO BID@1100,209904/01/20 01/04/21 01/03/21 History gabapentin 600 mg PO BID@1100,209904/01/20 01/04/21 01/03/21 History multivitamin 1 tab PO DAILY@1100,209904/01/20 01/04/21 01/03/21 History simvastatin 40 mg PO DAILY@1100 04/01/20 01/04/21 01/03/21 History omeprazole 20 mg PO BID@1100,209901/04/21 01/04/21 Unknown History Allergies Allergy/AdvReac Type Severity Reaction Status Date / Time No Known Allergies Allergy Unverified 01/04/21 12:21 Current Medications Current Medications Generic Name Dose Route Start Last Admin Trade Name Freq PRN Reason Stop Dose Admin Amlodipine Besylate 10 mg 01/04/21 21:00 01/05/21 11:10 Amlodipine 10 Mg Tablet PO 10 mg DAILY@1100,2099 MAYA Administration Atorvastatin Calcium 20 mg 01/05/21 11:00 01/05/21 11:10 Atorvastatin 40 Mg Tablet PO 20 mg DAILY@1100 MAYA Administration Carvedilol 25 mg 01/04/21 21:00 01/05/21 11:10 Carvedilol 25 Mg Tablet PO 25 mg BID@1100,2100 MAYA Administration Ferrous Sulfate 325 mg 01/04/21 21:00 01/05/21 11:09 Ferrous Sulfate Ec 325 Mg Tablet PO 325 mg BID@1100,2100 MAYA Administration Gabapentin 600 mg 01/04/21 21:00 01/05/21 11:10 Gabapentin 300 Mg Capsule PO 600 mg BID@1100,2100 MAYA Administration Insulin Aspart 0 unit 01/04/21 18:17 01/05/21 17:14 Insulin Aspart 100 Unit/1 Ml SUBCUT Not Given [facility]IDWM [facility] Protocol Pantoprazole Sodium 40 mg 01/04/21 21:00 01/05/21 11:[address] 40 Mg Tablet PO 40 mg BID@1100,2100 MAYA Administration PFSH Acute PFSH: Medical History Anemia CKD (chronic kidney disease) Hyperlipidemia Hypertension Non Hodgkin's lymphoma Peripheral neuropathy Type 2 diabetes mellitus Surgical History H/O lymph node biopsy H/O total hysterectomy with bilateral salpingo-oophorectomy (BSO) History of bilateral knee replacement History of bladder suspension procedure Family History Other CAD (coronary artery disease) Social History Smoking and tobacco status: never smoked Alcohol intake: never Household members: family Housing: House Marital status: Vitals/I&O/Wt Last Vital Signs Temp 99.8 F H 01/05/21 16:00 Pulse 68 01/05/21 16:00 Resp 17 01/05/21 16:00 BP 143/68 01/05/21 16:00 Pulse Ox 98 01/05/21 16:00 01/05/21 01/05/21 01/05/21 06:59 14:59 22:59 Intake Total 620 / 620 Balance 620 / 620 Weight last 48 hrs Weight 228 lb Physical Exam Narrative: EXAM NARRATIVE: Mental status exam: She is keenly alert with clear speech and sensorium. She is of above average intelligence with a good sense of humor. She follows commands without error. Cranial nerves: Visual chester full to confrontation. Facial movements symmetric. Eye movements are full. Tongue and palate midline without dysarthria. Motor: She is weak in the proximal lower extremities such that she can lift each leg from the bed but not oppose with resistance. Distally in the lower extremities she has 5 out of 5 strength although she has a little bit of dif ficulty organizing the task. In the upper extremities she is 5 out of 5 throughout. Normal tone. Sensation she is numb to the thighs to pin on both sides, symmetric. Touch was intact. Vibratory sensation absent at the ankles and reduced at the knees. Proprioception not tested Deep tendon reflexes absent at the knees and ankles, 1+ at the biceps Toes downgoing bilaterally Coordination no specific cerebellar signs within limits of testing Gait unable HEENT normocephalic. Conjunctiva noninjected and sclera nonicteric neck supple Chest: Auscultation Cardiovascular S1 and S2 normal. She has a very loud systolic ejection murmur heard all over the precordium and loudest at the upper right sternal border Data Micro: Micro: Microbiology 01/04/21 18:40 Blood Culture - Pr eliminary Blood SPECIMEN [facility] 01/04/21 18:30 Blood Culture - Pr eliminary Blood SPECIMEN [facility] A&P Assessment and plan (1) Syncope: 85-year-old woman who lost consciousness without warning and fell unprotected to the floor. She has severe lumbar stenosis based on her CAT scan and I suspect she sustained a concussion of her lumbar nerve roots from her severe stenosis. I expect that if this is the case she should gradually improve. I think she will need a period of rehabilitation and I suggested she go [facility] the [facility] for a week or 2 of therapy. She is receptive to that idea. I would be glad to see her in my office. I would like for her to have an MRI of the lumbosacral spine as an outpatient while she is [facility] the penitentiary. She has a loud systolic murmur. I combed through all of the physical exams in the last year. I see that she had a documented systolic murmur when examined by Dr. Mendez Mendiola 03/15/2020 but none of her subsequent exams documented this murmur. Such variability is unusual. Aortic stenosis may cause syncope and I think we should go ahead with a echocardiogram to look for severe stenosis. She has no sign of dementia. She has severe diabetic neuropathy, chronic. I think she has superimposed radiculopathy that accounts for the pain in her legs and that most likely it originates from her spinal stenosis combined with her fall. Status: Acute Qualifiers: Syncope type: unspecified Qualified Code(s): R55 - Syncope and collapse (2) Weakness of both lower extremities: Status: Acute Consult Attestations Medical Necessity Statement: Profound bilateral leg weakness, acute Time Spent in Patient Care: Greater than 35 minutes Coding Level of Care Code Acute Magnetic Tester for g Fwd Diagnoses Syncope R55 Syncope type: unspecified Weakness of both lower extremities R29.898
[2021-01-05] MEDS: heparin 5,000 unit/mL INJ 1 mL 5000 UNIT SUBCUT (17:57)
[2021-01-05] MEDS: acetaminophen 325 mg Tablet 650 MG PO (18:02)
--- NOTE | 2021-01-05 18:58 | ECG_ITS ---
[facility] ED Test Date: 2021-01-05 Pat Name: Monica Mendez Department: Room: 259 Gender: Female Disability Insurance Hearing Officer: : 1935 Requested By: Paul Rodriguez Order Number: [id number] Ilana MD: Nickie Daniel M.D. Measurements Intervals [place] Rate: 74 P: 81 CO: 219 QRS: -52 QRSD: 113 T: 38 QT: 394 QTc: 439 Interpretive Statements SINUS RHYTHM WITH FIRST DEGREE AV BLOCK MARKED LEFT AXIS DEVIATION [QRS AXIS < -30] PATTERN CONSISTENT WITH PULMONARY DISEASE MODERATE INTRAVENTRICULAR CONDUCTION DELAY [110+ ms QRS DURATION] Compared to ECG 01/05/2021 15:40:50 Left-axis deviation now present Intraventricular conduction delay now present Sinus arrhythmia no longer present Left anterior fascicular block no longer present Electronically Signed On 01-08-2021 5:28:14 CDT by Nickie Daniel M.D. [id number]
[2021-01-05 20:23] LABS: Troponin 5 6HR 56.85 ng/L (0-10)
[2021-01-05 20:27] LABS: Glucose Point of Care 233 mg/dL (70-110)
[2021-01-05 20:29] LABS: Troponin 5 6HR Delta -3.15 ng/L (0-12)
[2021-01-05] MEDS: insulin glargine 100 units/1 mL 40 UNIT SUBCUT (21:55)
[2021-01-06] VITALS (11 sets, daily range): BP systolic 106–146; BP diastolic 62–74; PULSE 63–92; RESP 18; TEMP 36.5–37.5; O2SAT 92–97
[2021-01-06] MEDS: heparin 5,000 unit/mL INJ 1 mL 5000 UNIT SUBCUT ×2 (06:08→17:35)
[2021-01-06 06:20] LABS: Basophils # 0.1 10^3/uL (0.0-0.1); Basophils % 0.5 %; Eosinophils # 0.2 10^3/uL (0.0-0.8); Eosinophils % 1.6 %; Hematocrit 28.5 % (37.0-47.0); Hemoglobin 9.3 g/dL (11.5-15.3); Lymphocytes % 18.9 %; Mean Corpuscular HGB Conc 32.6 g/dL (30.0-36.0); Mean Corpuscular Hemoglobin 29.8 pg (28.0-34.0); Mean Corpuscular Volume 91.3 fL (81-99); Monocytes # 1.1 10^3/uL (0.2-0.9); Monocytes % 9.8 %; Neutrophils # 7.35 10^3/uL (1.8-7.7); Neutrophils % 68.9 %; Nucleated Red Blood Cells % 0 %; Platelet Count 188 10^3/cmm (130-400); Red Blood Count 3.12 10^6/uL (4.1-5.3); Red Cell Distribution Width 13.5 % (12.1-15.1); White Blood Count 10.7 10^3/uL (4.0-10.0)
[2021-01-06 06:33] LABS: Glucose Point of Care 227 mg/dL (70-110)
[2021-01-06 06:41] LABS: Alanine Aminotransferase 9 U/L (0-33); Albumin Level 3.6 g/dL (3.5-5.2); Alkaline Phosphatase 78 IU/L (35-105); Anion Gap 14.6 (5-19); Aspartate Amino Transferase 12 U/L (0-32); Blood Urea Nitrogen 49 mg/dL (8-23); Carbon Dioxide 23 mmol/L (22-29); Chloride 99 mmol/L (98-107); Globulin 2.2 g/dL (1.3-4.6); Glucose 193 mg/dL (65-115); Magnesium 1.9 mg/dL (1.7-2.3); Osmolality Calculated 294 mOsm/kg (285-295); Potassium 3.6 mmol/L (3.5-5.1); Sodium 133 mmol/L (136-145); Total Bilirubin 0.4 mg/dL (0.15-1.2); Total Protein 5.8 g/dL (6.6-8.7)
--- NOTE | 2021-01-06 07:10 | PC.NURSE ---
PATIENT SNAGGED IV ON BEDDING AND CATHETER CAME OUT OF VEIN THEN ASKED FOR THE IV TO NOT BE REINSERTED. CALLED HOSPITALIST AND HE STATED THAT WAS FINE JUST TO DOCUMENT THAT PATIENT REFUSED.
[2021-01-06 11:27] LABS: Lymes IGG WB <0.90 index
[2021-01-06 11:38] LABS: Glucose Point of Care 313 mg/dL (70-110)
[2021-01-06] MEDS: gabapentin 300 mg Capsule 600 MG PO ×2 (12:16→20:39)
[2021-01-06] MEDS: amlodipine 10 mg Tablet PO ×2 (12:17→20:39)
[2021-01-06] MEDS: atorvastatin 40 mg Tablet 20 MG PO (12:17)
[2021-01-06] MEDS: ferrous sulfate EC 325 mg Tablet PO ×2 (12:17→20:39)
[2021-01-06] MEDS: carvedilol 25 mg Tablet PO ×2 (12:17→20:39)
[2021-01-06] MEDS: pantoprazole DR 40 mg Tablet PO ×2 (12:17→20:39)
[2021-01-06 13:03] LABS: CENTROMERE B ANTIBODY <1.0 NEG AI (<1.0 NEG); JO-1 ANTIBODY <1.0 NEG AI (<1.0 NEG); RNP ANTIBODY <1.0 NEG AI (<1.0 NEG); SCL-70 ANTIBODY <1.0 NEG AI (<1.0 NEG); SJOGREN'S ANTIBODY (SS-A) <1.0 NEG AI (<1.0 NEG); SM ANTIBODY <1.0 NEG AI (<1.0 NEG); SS-B <1.0 NEG AI (<1.0 NEG)
--- NOTE | 2021-01-06 13:03 | P.PN_ITS ---
Subjective Subjective: Interval history: Patient tells me that she did have a lot of sleep overnight, no chest pain overnight, no lightheadedness, dizziness, no shortness of breath, she did work with physical therapy, has been doing better, she is agreeable to go to the [facility] for [facility]-term rehab Vitals/I&O/Wt Last Vital Signs Temp 97.7 F 01/06/21 12:00 Pulse 66 01/06/21 12:00 Resp 18 01/06/21 12:00 BP 127/74 01/06/21 12:00 Pulse Ox 94 01/06/21 12:00 01/05/21 01/06/21 01/06/21 22:59 06:59 14:59 Intake Total 140 / 760 240 / 240 Output Total 100 / 100 350 / 450 Balance 40 / 660 -350 / 310 240 / 240 Physical Exam Const: COMMON NORMALS: no acute distress and patient oriented x3 GENERAL APPEARANCE: cooperative and comfortable Neck/C-Spine: COMMON NORMALS: full ROM, no lymphadenopathy and no JVD Lymph: LYMPHATIC: no lymphadenopathy noted Resp: COMMON NORMALS: normal respiratory effort, No retractions, No use of accessory muscles and clear to auscultation bilaterally AUSCULTATION: clear to auscultation bilaterally Cardio: COMMON NORMALS: no JVD, regular rate, regular rhythm, S1 normal heart sound present, S2 normal heart sound present, No gallops present (Cardio), No clicks present (Cardio) and No murmurs present (Cardio) RATE: regular rate RHYTHM: regular rhythm HEART SOUNDS: S1 normal heart sound present and S2 normal heart sound present GI: COMMON NORMALS: Normal to inspection, nondistended, normoactive bowel sounds present, Soft to palpation, non-tender, No hepatosplenomegaly present, no masses and no bruits PALPATION: Yes Soft to palpation and Yes No hepatosplenomegaly present Extremity: COMMON NORMALS: normal to inspection, full ROM, capillary refill normal and no pedal edema Neuro: COMMON NORMALS: patient oriented x3, CN's II-XII intact bilaterally, no focal motor deficits and no sensory deficits noted OTHER: -Follows all commands -Bilateral extremities, strength dorsi/ plantarflexion 4 out of 5 bilaterally -Strength in shins and calf is 4 out of 5 -Strength in quadriceps is 4 out of 5 -Mild bilateral sensory losses at the vang level -Has bilateral knee replacement Psych: COMMON NORMALS: mental status grossly normal, Normal thought process present and cooperative THOUGHT PROCESS: Normal thought process present Data : 01/06/21 06:08 01/06/21 06:08 Micro: Microbiology 01/04/21 18:40 Blood Culture - Preliminary Blood NEGATIVE TO DATE 01/04/21 18:30 Blood Culture - Preliminary Blood NEGATIVE TO DATE A&P Assessment and plan (1) Syncope: Syncopal episode: Yes -First troponin 60, 6-hour 56.85, negative delta of 3.1 -Incomplete RBBB, Q waves in V1 to V4, interventricular conduction delay -Cardiac echo: EF of 60%, grade 3 out of 4 diastolic dysfunction, severely elevated filling pressures, no regional wall motion abnormalities, moderate LVH, mild to moderate mitral regurg, mild aortic stenosis -Telemetry no acute events Plan: -Given elevated troponins, syncopal episode concerning for possible arrhythmic event, will order cardiac stress test to evaluate for underlying ischemia -Cardiac Doppler ordered -carotid artery ultrasound pending -Neurochecks, aspiration precautions, seizure precautions -Lovenox for DVT prophylaxis -I have confirmed with patient that she is DNR/DNI Plan for today, continue telemetry monitoring, follow test results, will order cardiac stress test tomorrow morning Status: Acute Qualifiers: Syncope type: unspecified Qualified Code(s): R55 - Syncope and collapse (2) Weakness of both lower extremities: -Likely related to compression of the lumbar nerve roots from her fall, and her severe stenosis -Does have significant bruising over the back -Does have have a low-grade temperature 99.9, some sensory loss is up to the vang level, has bilateral knee replacement, does have loss of ankle reflexes, difficult to do patellar reflex, continues to have motor strength losses on dorsi and plantar flexion, quadricep weakness, weakness in the lower extremity -She went from suddenly from walking to not walking -CT scan of the lumbar spine does show grade 1 L4-L5 spondylitis, moderate severity spinal canal stenosis at L2, L3, moderate severity spinal canal stenosis at L3-L4, mild to moderate spinal canal stenosis L4-L5, broad based posterior disc bulges at each level -Her strength is slowly improving -B1 pending -B12, EVANGELINA within normal limits -No focal neurologic deficits, neurochecks -Will need an outpatient MRI with follow-up with neurology -PT OT Status: Acute (3) Hyperlipidemia: Status: Acute (4) Type 2 diabetes mellitus: -Continue Lantus 50 units daily, sliding scale Status: Acute (5) Hypertension: Status: Acute (6) CKD (chronic kidney disease): -Creatinine up to 3.5, does have significant bruising over the back, possible rhabdo, ordered CPK start gentle IV hydration Status: Acute Qualifiers: Chronic kidney disease stage: unspecified stage Qualified Code(s): N18.9 - Chronic kidney disease, unspecified Attestations Medical Necessity Statement*: Requires hospitalization for syncopal episode, bilateral extremity weakness, worsening creatinine, inpatient admission, greater than 2 midnights, requiring [facility] placement Coding Level of Care Code Acute Furniture Inspector for [facility] Fwd Diagnoses Syncope R55 Syncope type: unspecified Weakness of both lower extremities R29.898 Hyperlipidemia E78.5 Type 2 diabetes mellitus E11.9 Hypertension I10 CKD (chronic kidney disease) N18.9 Chronic kidney disease stage: unspecified stage
[2021-01-06 13:39] LABS: ANA SCREEN, IFA NEGATIVE (NEGATIVE); COMPLEMENT, TOTAL (CH50) >60 U/mL (31-60)
[2021-01-06] MEDS: cetylpyridinium Lozenge 1 EACH MUCOUS MEM (14:47)
[2021-01-06] MEDS: aspirin 81 mg EC Tablet PO (14:47)
[2021-01-06 15:10] LABS: Creatine Phosphokinase 124 U/L (26-192)
[2021-01-06 15:48] LABS: COMPLEMENT COMPONENT C3C 167 mg/dL; COMPLEMENT COMPONENT C4C 44 mg/dL
[2021-01-06 17:24] LABS: Glucose Point of Care 192 mg/dL (70-110)
[2021-01-06] MEDS: sodium chloride 0.9% 1,000 ML 75 ML IV (17:34)
[2021-01-06 20:48] LABS: Glucose Point of Care 225 mg/dL (70-110)
[2021-01-06] MEDS: insulin glargine 100 units/1 mL 40 UNIT SUBCUT (21:04)
[2021-01-06] MEDS: acetaminophen 325 mg Tablet 650 MG PO (23:08)
[2021-01-07] VITALS (10 sets, daily range): BP systolic 102–145; BP diastolic 58–73; PULSE 57–71; RESP 17–18; TEMP 36.4–37; O2SAT 91–96
[2021-01-07] MEDS: sodium chloride 0.9% 1,000 ML 75 ML IV (05:35)
[2021-01-07] MEDS: heparin 5,000 unit/mL INJ 1 mL 5000 UNIT SUBCUT ×2 (05:36→17:42)
[2021-01-07 06:04] LABS: Basophils % 0.4 %; Eosinophils # 0.3 10^3/uL (0.0-0.8); Eosinophils % 2.6 %; Hematocrit 27.4 % (37.0-47.0); Hemoglobin 8.9 g/dL (11.5-15.3); Lymphocytes # 2.5 10^3/uL (0.8-4.8); Lymphocytes % 22.9 %; Mean Corpuscular HGB Conc 32.5 g/dL (30.0-36.0); Mean Corpuscular Hemoglobin 29.6 pg (28.0-34.0); Mean Platelet Volume 12.5 fL (7.4-10.4); Monocytes # 0.9 10^3/uL (0.2-0.9); Monocytes % 8.6 %; Neutrophils # 7.03 10^3/uL (1.8-7.7); Neutrophils % 65.2 %; Nucleated Red Blood Cells % 0 %; Platelet Count 203 10^3/cmm (130-400); Red Blood Count 3.01 10^6/uL (4.1-5.3); Red Cell Distribution Width 13.4 % (12.1-15.1); White Blood Count 10.8 10^3/uL (4.0-10.0)
[2021-01-07 06:20] LABS: Glucose Point of Care 210 mg/dL (70-110)
[2021-01-07 06:38] LABS: Alanine Aminotransferase 10 U/L (0-33); Albumin Level 3.6 g/dL (3.5-5.2); Alkaline Phosphatase 82 IU/L (35-105); Anion Gap 18.7 (5-19); Aspartate Amino Transferase 12 U/L (0-32); Blood Urea Nitrogen 55 mg/dL (8-23); Carbon Dioxide 21 mmol/L (22-29); Chloride 100 mmol/L (98-107); Globulin 2.7 g/dL (1.3-4.6); Glucose 172 mg/dL (65-115); Magnesium 1.9 mg/dL (1.7-2.3); Osmolality Calculated 301 mOsm/kg (285-295); Potassium 3.7 mmol/L (3.5-5.1); Sodium 136 mmol/L (136-145); Total Bilirubin 0.4 mg/dL (0.15-1.2); Total Protein 6.3 g/dL (6.6-8.7)
[2021-01-07 06:54] LABS: Creatine Phosphokinase 94 U/L (26-192)
--- NOTE | 2021-01-07 07:00 | NMCV_ITS ---
NM janie perf SPECT r/s* [id number] Monica Mendez Age: 85 Gender: F : 1935 Exam Date: 01/07/2021 08:32 Ordering Phys: Paul Rodriguez MD Technologist: OZIEL Riddle Exam Location: [facility] Indications: SYNCOPE FALL LEG PAIN STRESS TEST Please see separate stress test report in [facility] for full findings IMAGE PROTOCOL Rest/Stress 1 Lexiscan Day Radiopharmaceutical Dose (mCi) Administration Site Administered by Rest: Tc-99m 10.9 IV OZIEL Weeks Sestamibi Stress:Tc-99m 33.0 IV OZIEL eWeks Sestamibi Rest: 07-Jan-2021 60 Discovery 630 Stress: 07-Jan-2021 30 Discovery 630 0.4mg Lexiscan. Supine position only as patient was unable to lay prone. SPECT RESULTS Technical Quality: Excellent Raw Data Analysis: Normal Image Corrections: No attenuation or motion correction applied Summed Stress Score: 0 Summed Rest Score: 0 Summed Difference Score: 0 PERFUSION FINDINGS SPECT images demonstrate homogeneous tracer distribution throughout the myocardium. FUNCTIONAL RESULTS (calculated via Gated SPECT) Stress Image LV EF (%): 72 Stress EDV (mL):113 TID: 1.21 Stress ESV (mL):32 Rest Image LV EF (%): 72 FUNCTIONAL FINDINGS: There is normal left ventricular systolic function. IMPRESSIONS Myocardial perfusion imaging is normal.TID ratio is elevated which could be secondary left ventricle hypertrophy/subendocardial ischemia. EKG segment will be documented separately. Margot Sheldon MD (Electronically Signed) Final Date: 07 January 2021 12:05 S
--- NOTE | 2021-01-07 08:05 | ECG_ITS ---
[facility] Test Date: 2021-01-07 Pat Name: Monica Mendez Department: Room: 259 Gender: Female Pit Steward: : 1935 Requested By: Paul Rodriguez Order Number: [id number] Ilana MD: VALERIE GORDILLO Interpretive Statements NAME OF STUDY: LEXISCAN SESTAMIBI STRESS TEST INDICATION: Syncope/elevated trop, NOTE: Please note that this is the electrocardiogram portion of the Lexiscan/Sestamibi stress test. The perfusion scan will be documented separately. DATA: Baseline heart rate was 57 beats per minute. Baseline blood pressure was 128/76 millimeters of mercury. Target heart rate 136. Maximum heart rate achieved was 65. which was 47 % of the predicted target heart rate. Maximum blood pressure was 138/76 millimeters of mercury. The reason for ending the test was completion of the protocol. The patient did not experience any symptoms. ELECTROCARDIOGRAM: BASELINE: Sinus bradycardia. Right axis. Otherwise, no ST-T changes suggestive of ischemia noted. No arrhythmia noted. EXERCISE: After Lexiscan injection, no ST-T changes suggestive of ischemic noted. No arrhythmia noted. CONCLUSION: Please note due to baseline abnormality of the EKG specificity and sensitivity of the EKG portion of LexiScan MIBI stress test will be low 1. EKG not suggestive of ischemia 2. Lexiscan injection unremarkable. 3. Perfusion scan will be documented separately. Electronically Signed On 02-01-2021 19:35:05 CDT by VALERIE GORDILLO [id number]
[2021-01-07] MEDS: regadenoson 0.4 Mg/5 ml Syringe IVP (09:15)
--- NOTE | 2021-01-07 09:22 | US_ITS ---
WS: [id number] ULTRASOUND RENAL TECHNIQUE: Ultrasound examination of both kidneys. CLINICAL INFORMATION: drake COMPARISON: None. FINDINGS: Bilateral renal cortical atrophy. RIGHT: Right kidney is otherwise normal in size and appearance. Echogenicity: Normal. Hydronephrosis: None. Perinephric fluid: None. Right kidney measures: 8.6 cm x 6.3 cm x 6.3 cm. LEFT: Left kidney is otherwise normal in size and appearance. Echogenicity: Normal. Hydronephrosis: None. Perinephric fluid: None. Left kidney measures: 8.9 cm x 5.4 cm x 6.4 cm. Normal visualized aorta. US/US renal BI* [id number] IMPRESSION: 1. Bilateral renal cortical atrophy with medical renal disease. 2. No hydronephrosis in either kidney. 3. Bilateral renal cysts the largest in the mid left kidney measuring 3.3 x 4. 7 x 3.8 cm
[2021-01-07 10:46] LABS: Glucose Point of Care 208 mg/dL (70-110)
--- NOTE | 2021-01-07 11:05 | PC.OT ---
OT note: Attempted OT earlier this morning but pt was out of room at procedure. Will attempt later as able.
[2021-01-07] MEDS: atorvastatin 40 mg Tablet PO (11:46)
[2021-01-07] MEDS: gabapentin 300 mg Capsule 600 MG PO ×2 (11:46→21:13)
[2021-01-07] MEDS: amlodipine 10 mg Tablet PO ×2 (11:46→21:14)
[2021-01-07] MEDS: ferrous sulfate EC 325 mg Tablet PO ×2 (11:46→21:14)
[2021-01-07] MEDS: pantoprazole DR 40 mg Tablet PO ×2 (11:46→21:13)
[2021-01-07] MEDS: carvedilol 25 mg Tablet PO ×2 (11:46→21:13)
--- NOTE | 2021-01-07 12:07 | P.PN_ITS ---
Subjective Subjective: Interval history: This morning patient was examined, she was seen after her cardiac stress test, she tells me that the strength in her legs is significantly improving, she still wondering what caused her to pass out, overall she is doing better, awaiting half-way placement, Vitals/I&O/Wt Last Vital Signs Temp 97.5 F L 01/07/21 08:00 Pulse 63 01/07/21 09:54 Resp 17 01/07/21 08:00 BP 108/64 01/07/21 09:14 Pulse Ox 94 01/07/21 09:54 01/06/21 01/07/21 01/07/21 22:59 06:59 14:59 Intake Total 240 / 480 901.25 / 1381.25 Output Total 1000 / 1000 600 / 1600 Balance -760 / -520 301.25 / -218.75 Physical Exam Const: COMMON NORMALS: no acute distress and patient oriented x3 HENMT: COMMON NORMALS: normocephalic HEAD & SCALP: normocephalic Neck/C-Spine: COMMON NORMALS: no JVD Resp: COMMON NORMALS: normal respiratory effort, No retractions, No use of accessory muscles and clear to auscultation bilaterally AUSCULTATION: clear to auscultation bilaterally Cardio: COMMON NORMALS: no JVD, regular rate, regular rhythm, S1 normal heart sound present and S2 normal heart sound present RATE: regular rate RHYTHM: regular rhythm HEART SOUNDS: S1 normal heart sound present and S2 normal heart sound present GI: COMMON NORMALS: Normal to inspection, nondistended, normoactive bowel sounds present, Soft to palpation, non-tender, No hepatosplenomegaly present, no masses and no bruits PALPATION: Yes Soft to palpation and Yes No hepatosplenomegaly present Extremity: COMMON NORMALS: capillary refill normal, no clubbing, cyanosis or edema, no calf tenderness and no pedal edema Neuro: COMMON NORMALS: patient oriented x3 OTHER: -Follows all commands -Bilateral extremities, strength dorsi/ plantarflexion 4 out of 5 bilaterally -Strength in shins and calf is 4 out of 5 -Strength in quadriceps is 4 out of 5 -Mild bilateral sensory losses at the vang level -Has bilateral knee replacement Psych: COMMON NORMALS: mental status grossly normal Skin: NARRATIVE SKIN EXAM: Does have a diffuse dark-colored rash over the back, likely secondary to with electric blanket Data : 01/07/21 05:48 01/07/21 05:48 A&P Assessment and plan (1) Syncope: Syncopal episode: Yes -First troponin 60, 6-hour 56.85, negative delta of 3.1 -Incomplete RBBB, Q waves in V1 to V4, interventricular conduction delay -Cardiac echo: EF of 60%, grade 3 out of 4 diastolic dysfunction, severely elevated filling pressures, no regional wall motion abnormalities, moderate LVH, mild to moderate mitral regurg, mild aortic stenosis -Telemetry no acute events -Likely secondary to an arrhythmia Plan: -Given elevated troponins, syncopal episode concerning for possible arrhythmic event, stress test ordered and pending -Cardiac Doppler pending -carotid artery no hemodynamically significant stenosis -Neurochecks, aspiration precautions, seizure precautions -Lovenox for DVT prophylaxis -I have confirmed with patient that she is DNR/DNI Plan for today, continue telemetry monitoring, stress test results, continue PT OT, awaiting half-way placement Status: Acute Qualifiers: Syncope type: unspecified Qualified Code(s): R55 - Syncope and collapse (2) Weakness of both lower extremities: -Likely related to compression of the lumbar nerve roots from her fall, and her severe stenosis -Does have significant bruising over the back -Does have have a low-grade temperature 99.9, some sensory loss is up to the vang level, has bilateral knee replacement, does have loss of ankle reflexes, difficult to do patellar reflex, continues to have motor strength losses on dorsi and plantar flexion, quadricep weakness, weakness in the lower extremity -She went from suddenly from walking to not walking -CT scan of the lumbar spine does show grade 1 L4-L5 spondylitis, moderate severity spinal canal stenosis at L2, L3, moderate severity spinal canal stenosis at L3-L4, mild to moderate spinal canal stenosis L4-L5, broad based posterior disc bulges at each level -Her strength is slowly improving -B1 pending -B12, EVANGELINA within normal limits -No focal neurologic deficits, neurochecks -Will need an outpatient MRI with follow-up with neurology -PT OT -Awaiting half-way placement Status: Acute (3) Hyperlipidemia: Status: Acute (4) Type 2 diabetes mellitus: -Continue Lantus 50 units daily, sliding scale Status: Acute (5) Hypertension: Status: Acute (6) CKD (chronic kidney disease): -Creatinine up to 3.5, does have significant bruising over the back, possible rhabdo, ordered CPK start gentle IV hydration Status: Acute Qualifiers: Chronic kidney disease stage: unspecified stage Qualified Code(s): N18.9 - Chronic kidney disease, unspecified Attestations Medical Necessity Statement*: Patient requires hospitalization for syncopal episode, neurologic lower extremity weakness, awaiting half-way placement Coding Level of Care Code Acute Drop Count Associate for [facility] Fwd Diagnoses Syncope R55 Syncope type: unspecified Weakness of both lower extremities R29.898 Hyperlipidemia E78.5 Type 2 diabetes mellitus E11.9 Hypertension I10 CKD (chronic kidney disease) N18.9 Chronic kidney disease stage: unspecified stage
[2021-01-07] MEDS: aspirin 81 mg EC Tablet PO (13:35)
[2021-01-07 16:08] LABS: THYROID PEROXIDASE ANTIBODIES 1 IU/mL (<9)
[2021-01-07 17:12] LABS: Glucose Point of Care 181 mg/dL (70-110)
[2021-01-07 20:53] LABS: Glucose Point of Care 256 mg/dL (70-110)
[2021-01-07] MEDS: insulin glargine 100 units/1 mL 40 UNIT SUBCUT (21:15)
[2021-01-08] VITALS (8 sets, daily range): BP systolic 117–128; BP diastolic 62–71; PULSE 52–63; RESP 16–20; TEMP 36.3–36.8; O2SAT 93–97
[2021-01-08] MEDS: heparin 5,000 unit/mL INJ 1 mL 5000 UNIT SUBCUT (05:23)
[2021-01-08] MEDS: acetaminophen 325 mg Tablet 650 MG PO (05:23)
[2021-01-08 05:59] LABS: Basophils # 0.1 10^3/uL (0.0-0.1); Basophils % 0.5 %; Eosinophils # 0.3 10^3/uL (0.0-0.8); Eosinophils % 3.5 %; Hematocrit 27.9 % (37.0-47.0); Hemoglobin 9.1 g/dL (11.5-15.3); Lymphocytes # 1.4 10^3/uL (0.8-4.8); Lymphocytes % 15.2 %; Mean Corpuscular HGB Conc 32.6 g/dL (30.0-36.0); Mean Corpuscular Hemoglobin 30.2 pg (28.0-34.0); Mean Corpuscular Volume 92.7 fL (81-99); Mean Platelet Volume 12.6 fL (7.4-10.4); Monocytes # 0.8 10^3/uL (0.2-0.9); Neutrophils # 6.62 10^3/uL (1.8-7.7); Neutrophils % 71.5 %; Nucleated Red Blood Cells % 0 %; Platelet Count 212 10^3/cmm (130-400); Red Blood Count 3.01 10^6/uL (4.1-5.3); Red Cell Distribution Width 13.4 % (12.1-15.1); White Blood Count 9.3 10^3/uL (4.0-10.0)
[2021-01-08 06:24] LABS: Alanine Aminotransferase 11 U/L (0-33); Albumin Level 3.5 g/dL (3.5-5.2); Alkaline Phosphatase 79 IU/L (35-105); Aspartate Amino Transferase 14 U/L (0-32); Blood Urea Nitrogen 53 mg/dL (8-23); Calcium 8.8 mg/dL (8.5-10.5); Carbon Dioxide 21 mmol/L (22-29); Chloride 100 mmol/L (98-107); Creatine Phosphokinase 98 U/L (26-192); Globulin 2.7 g/dL (1.3-4.6); Glucose 154 mg/dL (65-115); Osmolality Calculated 297 mOsm/kg (285-295); Phosphorus 3.7 mg/dL (2.5-4.5); Sodium 135 mmol/L (136-145); Total Bilirubin 0.3 mg/dL (0.15-1.2); Total Protein 6.2 g/dL (6.6-8.7)
[2021-01-08 06:38] LABS: Glucose Point of Care 175 mg/dL (70-110)
--- NOTE | 2021-01-08 10:25 | PC.NURSE ---
Report called to ERICA [place] at [facility]. Nurse verbalized understanding of information and did not have any further questions. IV has been removed. Patient dressed. [facility] contacted for transportation.
[2021-01-08] MEDS: pantoprazole DR 40 mg Tablet PO (10:33)
[2021-01-08] MEDS: carvedilol 25 mg Tablet PO (10:34)
[2021-01-08] MEDS: ferrous sulfate EC 325 mg Tablet PO (10:34)
[2021-01-08] MEDS: amlodipine 10 mg Tablet PO (10:34)
[2021-01-08] MEDS: atorvastatin 40 mg Tablet PO (10:34)
--- NOTE | 2021-01-08 10:45 | DCPLANNER ---
IMM updated and reviewed with patient, no questions at this time -signed and dated - copy provided to patient.
[2021-01-08 11:02] LABS: Glucose Point of Care 261 mg/dL (70-110)
--- NOTE | 2021-01-08 11:25 | P.DS_ITS ---
Discharge Providers Date of Admission: 01/05/21 15:22 Date of Discharge: January 08, 2021 Attending Provider at Admission: Paul Rodriguez MD Attending Provider at Discharge: Paul Rodriguez MD Primary Care Provider: Yazmin Boland APN Diagnoses at Discharge Discharge Diagnosis (1) Syncope: Status: Acute Qualifiers: Syncope type: unspecified Qualified Code(s): R55 - Syncope and collapse (2) Weakness of both lower extremities: Status: Acute (3) Hyperlipidemia: Status: Acute (4) Type 2 diabetes mellitus: Status: Acute (5) Hypertension: Status: Acute (6) CKD (chronic kidney disease): Status: Acute Qualifiers: Chronic kidney disease stage: unspecified stage Qualified Code(s): N18.9 - Chronic kidney disease, unspecified Reason for Visit Reason for Visit: SYNCOPE, FALL, LEG PAIN Hospital Course Hospital Course Monica Mendez is a 85 year old female with a past medical history of insulin-dependent type 2 diabetes mellitus, hypertension, CKD, non-Hodgkin's lymphoma in remission, hyperlipidemia, who presents to [facility] for sudden onset of bilateral lower extremity weakness and syncopal event Syncope: -First troponin 60, 6-hour 56.85, negative delta of 3.1 -Incomplete RBBB, Q waves in V1 to V4, interventricular conduction delay -Cardiac stress test showed low probability of obstructive CAD, 3 times daily ratio is elevated -Cardiac echo: EF of 60%, grade 3 out of 4 diastolic dysfunction, severely elevated filling pressures, no regional wall motion abnormalities, moderate LVH, mild to moderate mitral regurg, mild aortic stenosis -Patient did have moderate LVH, no significant evidence of hocm -Telemetry no acute events -Carotid artery ultrasound no hemodynamically significant stenosis -Thus likely patient's syncopal episode was related to an abnormal arrhythmia event likely associated with her LVH, she is on Coreg 25 mg twice daily, she will be discharged with event monitor, with close follow-up with cardiology as outpatient Weakness of both lower extremities: -Likely related to compression of the lumbar nerve roots from her fall, and her severe spinal canal l stenosis -Does have significant bruising over the back, likely related to -CT scan of the lumbar spine does show grade 1 L4-L5 spondylitis, moderate severity spinal canal stenosis at L2, L3, moderate severity spinal canal stenosis at L3-L4, mild to moderate spinal canal stenosis L4-L5, broad based posterior disc bulges at each level -Her strength is slowly improving -B1 pending -B12, EVANGELINA within normal limits -No focal neurologic deficits, neurochecks -Will need an outpatient MRI with follow-up with neurology -Discharge to [facility] for PT OT -Her strength was improving throughout her hospitalization Physical Exam Const: COMMON NORMALS: no acute distress and patient oriented x3 GENERAL APPEARANCE: cooperative and comfortable Eye: COMMON NORMALS: Equal, round and reactive pupils present and EOMs intact bilaterally GENERAL EYE: appearance normal, both eyes and all related s tructures PUPIL: Yes Equal, round and reactive pupils present Neck/C-Spine: COMMON NORMALS: full ROM, no lymphadenopathy, no JVD and Thyroid normal THYROID: Thyroid normal Lymph: LYMPHATIC: no lymphadenopathy noted Resp: COMMON NORMALS: normal respiratory effort, No retractions, No use of accessory muscles and clear to auscultation bilaterally AUSCULTATION: clear to auscultation bilaterally Cardio: COMMON NORMALS: no JVD, regular rate, regular rhythm, S1 normal heart sound present, S2 normal heart sound present, No gallops present (Cardio), No clicks present (Cardio) and No murmurs present (Cardio) RATE: regular rate RHYTHM: regular rhythm HEART SOUNDS: S1 normal heart sound present and S2 normal heart sound present GI: COMMON NORMALS: Normal to inspection, nondistended, normoactive bowel sounds present, Soft to palpation, non-tender, No hepatosplenomegaly present, no masses and no bruits PALPATION: Yes Soft to palpation and Yes No hepatosplenomegaly present Extremity: COMMON NORMALS: normal to inspection, full ROM, no calf tenderness and no pedal edema Neuro: COMMON NORMALS: patient oriented x3, CN's II-XII intact bilaterally, no focal motor deficits and no sensory deficits noted OTHER: -Follows all commands -Bilateral extremities, strength dorsi/ plantarflexion 4 out of 5 bilaterally -Strength in shins and calf is 4 out of 5 -Strength in quadriceps is 4 out of 5 -Mild bilateral sensory losses at the vang level -Has bilateral knee replacement Skin: NARRATIVE SKIN EXAM: Does have a diffuse dark-colored rash over the back, likely secondary to with electric blanket Discharge Data Data Completed and Pending: Completed Studies During Hospitalization Category Date Time Status CT head wo con* 7 0450 Urgent Cat Scan 01/04/21 12:[address] lumbar spine w o con* [id number] Urgen t Cat Scan 01/04/21 18:17 Completed Sestamibi Stress Test Request Routi ne Exams 01/07/21 08:05 Draft XR chest 1V sandra ble [id number] Urgent Exams 01/04/21 12:20 Completed NM janie perf SPECT r/s* [id number] Routin e Nuc Med 01/07/21 07:00 Completed CV carotid duplex BI* [id number] Routine Ultrasound 01/05/21 07:00 Completed CV echo complete* [id number] Routine Ultrasound 01/05/21 07:00 Completed US renal BI* [id number] Routine Ultrasound 01/07/21 09:22 Completed Pending at discharge Category Date Time Status CA echo doppler c omplete Routine Exams 01/05/21 19:32 Ordered Sestamibi Stress Test Request Routi ne Exams 01/06/21 13:09 Stop Req EVANGELINA Profile Rheum atology Stat Lab 01/04/21 18:30 Results Blood Culture Rou ines Lab 01/04/21 18:40 Results Complete Blood Co unt w/Auto AM LABS Lab 01/09/21 04:00 Ordered Complete Blood Co unt w/Auto AM LABS Lab 01/10/21 04:00 Ordered Comprehensive Met abolic Panel AM LA BS Lab 01/09/21 04:00 Ordered Comprehensive Met abolic Panel AM LA BS Lab 01/10/21 04:00 Ordered Creatine Phosphok inase AM LABS Lab 01/09/21 04:00 Ordered Magnesium AM LABS Lab 01/09/21 04:00 Ordered Magnesium AM LABS Lab 01/10/21 04:00 Ordered Osmolality Urine Stat Lab 01/07/21 09:22 Ordered Phosphorus AM LAB S Lab 01/09/21 04:00 Ordered Phosphorus AM LAB S Lab 01/10/21 04:00 Ordered Urea Nitrogen,Uri ne Random Routine Lab 01/07/21 09:22 Ordered Urinalysis Routin e Lab 01/07/21 09:22 Ordered Urine Creatinine Routine Lab 01/07/21 09:22 Ordered Urine Culture Sta t Lab 01/07/21 09:22 Ordered Urine Eosinophils Routine Lab 01/07/21 09:22 Ordered Urine Random Lyte s Routine Lab 01/07/21 09:22 Ordered Vitamin B1(Thiami n) Plas/Ser Routin e Lab 01/05/21 10:10 Received Labs from last 24 hours 01/08/21 01/08/21 01/08/21 10:58 06:35 05:20 WBC RBC Hgb Hct MCV MCH MCHC RDW Plt Count MPV Neut % (Auto) Lymph % (Auto) [place] % (Auto) Eos % (Auto) Baso % (Auto) Neut # (Auto) Lymph # (Auto) [place] # (Auto) Eos # (Auto) Baso # (Auto) Nucleated RBC % (a uto) Nucleated RBCs # Sodium 135 L Potassium 4.0 Chloride 100 Carbon Dioxide 21 L Anion Gap 18.0 BUN 53 H Creatinine 3.5 H GFR Calculation Not Reportable Glucose 154 H POC Glucose 261 H 175 H Calculated Osmolal ity 297 H Calcium 8.8 Phosphorus 3.7 Magnesium 2.0 Total Bilirubin 0.3 AST 14 ALT 11 Alkaline Phosphata se 79 Creatine Kinase 98 Total Protein 6.2 L Albumin 3.5 Globulin 2.7 Thyroid Peroxidase Ab 01/08/21 01/07/21 01/07/21 05:20 20:40 17:09 WBC 9.3 RBC 3.01 L Hgb 9.1 L Hct 27.9 L MCV 92.7 MCH 30.2 MCHC 32.6 RDW 13.4 Plt Count 212 MPV 12.6 H Neut % (Auto) 71.5 Lymph % (Auto) 15.2 [place] % (Auto) 9.0 Eos % (Auto) 3.5 Baso % (Auto) 0.5 Neut # (Auto) 6.62 Lymph # (Auto) 1.4 [place] # (Auto) 0.8 Eos # (Auto) 0.3 Baso # (Auto) 0.1 Nucleated RBC % (a uto) 0 Nucleated RBCs # 0.0 Sodium Potassium Chloride Carbon Dioxide Anion Gap BUN Creatinine GFR Calculation Glucose POC Glucose 256 H 181 H Calculated Osmolal ity Calcium Phosphorus Magnesium Total Bilirubin AST ALT Alkaline Phosphata se Creatine Kinase Total Protein Albumin Globulin Thyroid Peroxidase Ab 01/04/21 18:30 WBC RBC Hgb Hct MCV MCH MCHC RDW Plt Count MPV Neut % (Auto) Lymph % (Auto) [place] % (Auto) Eos % (Auto) Baso % (Auto) Neut # (Auto) Lymph # (Auto) [place] # (Auto) Eos # (Auto) Baso # (Auto) Nucleated RBC % (a uto) Nucleated RBCs # Sodium Potassium Chloride Carbon Dioxide Anion Gap BUN Creatinine GFR Calculation Glucose POC Glucose Calculated Osmolal ity Calcium Phosphorus Magnesium Total Bilirubin AST ALT Alkaline Phosphata se Creatine Kinase Total Protein Albumin Globulin Thyroid Peroxidase Ab 1 Vitals: Last Vital Signs Temp 97.7 F 01/08/21 10:32 Pulse 62 01/08/21 10:32 Resp 20 H 01/08/21 10:32 BP 128/68 01/08/21 10:32 Pulse Ox 97 01/08/21 10:32 Discharge Plan Discharge Patient Disposition: Home Condition: Stable Prescriptions: New aspirin 81 mg Tablet,Delayed Release (Dr/Ec) 81 mg PO Q24H 30 Days Qty: 30 RF: 0 Novolog U-100 Insulin aspart 100 unit/mL Solution See Rx Instructions .ROUTE .COMPLEX Qty: 10 RF: 0 Continued multivitamin Tablet 1 tab PO DAILY@1099,2099 RF: 0 carvedilol 25 mg tablet 25 mg PO BID@1099,2099 RF: 0 gabapentin 600 mg tablet 600 mg PO BID@1099,2099 RF: 0 simvastatin 40 mg tablet 40 mg PO DAILY@1099 RF: 0 amlodipine 10 mg tablet 10 mg PO DAILY@1099,2099 RF: 0 ferrous sulfate [iron] 325 mg (65 mg iron) Tablet 325 mg PO BID@1099,2099 RF: 0 cinnamon bark [Cinnamon] 500 mg Capsule 1,000 mg PO DAILY@1100 RF: 0 omeprazole 20 mg capsule,delayed release(DR/EC) 20 mg PO BID@1099,2099 RF: 0 Changed Basaglar KwikPen U-100 Insulin 100 unit/mL (3 mL) insulin pen 40 unit SUBCUT BEDTIME Qty: 0 RF: 0 Discharge Orders: Discharge Order (Routine); Ordered 01/08/21 Ordered By: Paul Rodriguez Other Ambulatory Orders: CA cardiac event monitor (Routine) Timeframe: 1 Day Facility: [facility] - Location: Cardiac Diagnostic Laboratory Ordered By: Paul Rodriguez Referrals: [facility] [Outside] Ca Fuenets MD [Physician] - 2 weeks (fall, syncope) Yazmin Boland APN [Primary Care Provider] - (Please call Yazmin Boland's office in [place] on Sunday to schedule a hospital follow up. ) Margot Sheldon MD [Physician] - 1 month (syncope, lvh, event monitor) Discharge Diet: Cardiac Discharge Activity: Resume usual activity Patient Instructions: Opioid Safety Activity Restrictions/Additional Instructions: -If you have recurrent syncope go to the emergency room -Need to have PT OT at [facility] -Follow-up with cardiology in 1 month -Follow-up with Dr. Fuentes in 2 weeks, for follow-up, MRI Discharge Attestations Time Spent in Discharge Care*: less than 30 min Status at Discharge: Cognitive status at discharge: cognitively intact , Beh avioral status at discharge: cooperative , Quality Metrics Clinical Quality Measures During this hospital stay, did patient experience: None Coding Level of Care Code Acute [facility] FW DC note Diagnoses Syncope R55 Syncope type: unspecified Weakness of both lower extremities R29.898 Hyperlipidemia E78.5 Type 2 diabetes mellitus E11.9 Hypertension I10 CKD (chronic kidney disease) N18.9 Chronic kidney disease stage: unspecified stage
[2021-01-09 18:08] LABS: Vitamin B1(Thiamin) Plas/Ser 20 nmol/L (8-30)
[2021-01-14 00:36] LABS: DNA AB (DS) CRITHIDIA,IFA NEGATIVE (NEGATIVE)
== END 2021-01-08 11:00 | disposition skilled nursing facility (03) | DRG 312 ==
LOC: ER 16:13 → MEDSURG 20:23
PROVIDERS: Admitting Provider Family Medicine; Emergency Provider Student in an Organized Health Care Education/Training Program; PCP Nurse Practitioner; Visit Provider Family Medicine
DX: R55 Syncope and collapse (principal); R53.1 Weakness; M48.061 Spinal stenosis, lumbar region without neurogenic claudication; M46.96 Unspecified inflammatory spondylopathy, lumbar region; M51.26 Other intervertebral disc displacement, lumbar region; E11.22 Type 2 diabetes mellitus with diabetic chronic kidney disease; I12.9 Hypertensive chronic kidney disease with stage 1 through stage 4 chronic kidney disease, or unspecified chronic kidney disease; E11.42 Type 2 diabetes mellitus with diabetic polyneuropathy; N18.9 Chronic kidney disease, unspecified; I51.7 Cardiomegaly; I51.9 Heart disease, unspecified; I35.0 Nonrheumatic aortic (valve) stenosis; I34.0 Nonrheumatic mitral (valve) insufficiency; D63.1 Anemia in chronic kidney disease; E78.5 Hyperlipidemia, unspecified; Z79.4 Long term (current) use of insulin; Z85.72 Personal history of non-Hodgkin lymphomas; Z66 Do not resuscitate; Z96.653 Presence of artificial knee joint, bilateral
CPT/HCPCS: 36415; 36416; 70450; 71045; 72131; 76770; 78452; 80053; 81001; 82550; 82607; 82962; 83735; 83880; 84100; 84425; 84443; 84484; 85025; 85610; 85651; 85730; 86140; 86160; 86162; 86235; 86255; 86376; 86617; 87040; 93005; 93017; 93306; 93880; 94664; 96372; 97110; 97116; 97161; 97166; 97530; 97535; 99285; A9500; G0378; J1644; J1815 ×2; J2785; J7030

== ENCOUNTER 2021-01-10 08:54 | Inpatient (IN) | payer OTHER, MEDICARE, SELFPAY ==
[2021-01-10] VITALS (31 sets, daily range): BP systolic 109–161; BP diastolic 55–89; PULSE 0–79; RESP 8–39; TEMP 36.1–36.4; O2SAT 80–100; BMI 37.3
--- NOTE | 2021-01-10 09:10 | XR_ITS ---
WS: [id number] Exam: XR chest 1V portable [id number] Date/Time of Exam: 01/10/2021 9:10 AM Reason For Exam: dyspnea/cough Comparison 01/04/2021. There is infiltrate throughout the right lung suggesting pneumonia. There is al so probable left lower lobe infiltrate. The heart is not enlarged for technique. The mediastinum is n ot widened. Advanced degenerative changes in both shoulders. No pneumothorax. Small right-sided pleur al effusion. XR/XR chest 1V portable [id number] IMPRESSION: 1. Infiltrates noted throughout the right lung and also probably the left lower lobe suggesting pneumonia. 2. Small right-sided pleural effusion.
--- NOTE | 2021-01-10 09:10 | ECG_ITS ---
[facility] Test Date: 2021-01-10 Pat Name: Monica Mendez Department: Room: ICU09 Gender: Female Senior Clinician: : 1935 Requested By: Carlos Monsalve Order Number: [id number] Reading MD: VALERIE GORDILLO Measurements Intervals [place] Rate: 74 P: 68 MI: 226 QRS: -33 QRSD: 113 T: 56 QT: 423 QTc: 471 Interpretive Statements SINUS RHYTHM WITH FIRST DEGREE AV BLOCK MARKED LEFT AXIS DEVIATION [QRS AXIS < -30] MODERATE INTRAVENTRICULAR CONDUCTION DELAY [110+ ms QRS DURATION] Compared to ECG 01/10/2021 11:38:36 First degree AV block now present Intraventricular conduction delay now present Electronically Signed On 01-10-2021 21:23:48 CDT by VALERIE GORDILLO [id number]
[2021-01-10 09:18] LABS: Basophils # 0.1 10^3/uL (0.0-0.1); Basophils % 0.5 %; Eosinophils % 0.3 %; Hematocrit 25.9 % (37.0-47.0); Hemoglobin 8.5 g/dL (11.5-15.3); Lymphocytes # 2.3 10^3/uL (0.8-4.8); Lymphocytes % 16.8 %; Mean Corpuscular HGB Conc 32.8 g/dL (30.0-36.0); Mean Corpuscular Hemoglobin 29.7 pg (28.0-34.0); Mean Corpuscular Volume 90.6 fL (81-99); Mean Platelet Volume 12.5 fL (7.4-10.4); Monocytes # 1.2 10^3/uL (0.2-0.9); Monocytes % 9.1 %; Neutrophils # 9.78 10^3/uL (1.8-7.7); Neutrophils % 72.9 %; Nucleated Red Blood Cells % 0 %; Platelet Count 250 10^3/cmm (130-400); Red Blood Count 2.86 10^6/uL (4.1-5.3); Red Cell Distribution Width 13.4 % (12.1-15.1); White Blood Count 13.4 10^3/uL (4.0-10.0)
[2021-01-10 09:35] LABS: Alanine Aminotransferase 14 U/L (0-33); Albumin Level 3.9 g/dL (3.5-5.2); Alkaline Phosphatase 96 IU/L (35-105); Anion Gap 21.5 (5-19); Aspartate Amino Transferase 16 U/L (0-32); Blood Urea Nitrogen 69 mg/dL (8-23); Calcium 8.9 mg/dL (8.5-10.5); Carbon Dioxide 19 mmol/L (22-29); Chloride 95 mmol/L (98-107); Glucose 232 mg/dL (65-115); Osmolality Calculated 300 mOsm/kg (285-295); Potassium 4.5 mmol/L (3.5-5.1); Sodium 131 mmol/L (136-145); Total Bilirubin 0.4 mg/dL (0.15-1.2); Total Protein 6.9 g/dL (6.6-8.7); Troponin(5th) Baseline 55 ng/L (0-10)
--- NOTE | 2021-01-10 09:43 | W.ED.SOB ---
HPI - SOB/Dyspnea General: Chief Complaint: Shortness of Breath/Dyspnea Stated Complaint: SOB Time Seen by Provider: 01/10/21 08:59 History of Present Illness: HPI Narrative: 85-year-old female with history of diastolic congestive heart failure presents emergency room in severe respiratory distress respiratory rates in the upper 30s to 40s she is on 6 L by nasal cannula I came in the room and is satting in the mid 80s. She was reclined at about 45 degrees and we set her up to 90 degrees improve nonrebreather on her sheet her sats did improve significantly. As well as her respiratory rate she denies any chest pain she was just recently in the hospital and was discharged 2 days ago. She has a history of diabetes as well as diabetic diabetic congestive heart failure and hypertension. She has been taking all of her medications at home. MD elicited complaint: shortness of breath Pertinent past history: congestive heart failure (Diastolic) Onset (ago): minute(s) Context: occurred during exertion Timing: constant Severity: severe Exacerbating factors: lying flat and coughing Relieving factors: oxygen and upright position Known history of: congestive heart failure Associated symptoms: Reports dizziness and orthopnea; Deny abdominal pain, chest congestion, chest pain, cough, diaphoresis, extremity pain, fever(s), hemoptysis, lightheadedness, myalgias, nausea, palpitations, paresthesias, polydipsia, polyuria, sense of impending doom, syncope or vomiting Treatment prior to arrival: oxygen Review of Systems Const: Denies: fever(s) or diaphoresis ENMT: Denies: throat pain, ear or mastoid pain, nasal discharge or nasal congestion Card: Reports: orthopnea; Denies: chest pain, palpitations, lightheadedness or syncope Resp: Denies: hemoptysis or chest congestion GI: Denies: abdominal pain, nausea or vomiting : Denies: flank pain, difficulty voiding, dysuria, urinary frequency or urinary urgency Musc: Denies: extremity pain Skin/Breast: Denies: rash or pruritus Neuro: Reports: dizziness Endo: Denies: polyuria or polydipsia PFS ED PFSH: Medical History Anemia CKD (chronic kidney disease) Hyperlipidemia Hypertension Non Hodgkin's lymphoma Peripheral neuropathy Type 2 diabetes mellitus Surgical History H/O lymph node biopsy H/O total hysterectomy with bilateral salpingo-oophorectomy (BSO) History of bilateral knee replacement History of bladder suspension procedure Family History Other CAD (coronary artery disease) Social History Smoking and tobacco status: never smoked Alcohol intake: never Household members: family Housing: House Marital status: Physical Exam Const: COMMON NORMALS: no acute distress GENERAL APPEARANCE: cooperative and comfortable ORIENTATION/CONSCIOUSNESS: Yes awake, Yes oriented to person, Yes oriented to place and Yes oriented to time HENMT: COMMON NORMALS: normocephalic, atraumatic and hearing grossly normal bilaterally HEAD & SCALP: normocephalic and atraumatic Neck/C-Spine: COMMON NORMALS: full ROM, no lymphadenopathy and supple Resp: EFFORT & INSPECTION: Yes tachypneic, Yes respiratory distress and Yes uses accessory muscles AUSCULTATION: crackles Cardio: COMMON NORMALS: regular rate, regular rhythm and No murmurs present (Cardio) RATE: regular rate RHYTHM: regular rhythm GI: COMMON NORMALS: Soft to palpation and No hepatosplenomegaly present AUSCULTATION: Yes normoactive bowel sounds PALPATION: Yes Soft to palpation, No Tenderness to palpation present (GI), No Guarding due to palpation present (GI) and Yes No hepatosplenomegaly present Neuro: SENSORIUM/ORIENTATION: Yes oriented to person, Yes oriented to place and Yes oriented to time Skin: COMMON NORMALS: no rashes or lesions noted GENERAL SKIN EXAM: no rashes or lesions noted Course Vital Signs: Vital signs: Vital Signs Pulse Rate 61 01/10/21 10:39 Respiratory Rate 20 H 01/10/21 10:39 Blood Pressure 133/62 01/10/21 10:39 Pulse Oximetry 93 01/10/21 10:39 MDM - SOB/Dyspnea MDM Narrative: Medical decision making narrative: acute congestive heart failure. She had significant improvement with the BiPAP with 60 Lasix and elevation of the head of the bed she is much more comfortable now sats are good on the BiPAP at FiO2 of 30. Were going to admit her for diuretics further evaluation. She had a syncopal episode at the time of her previous admission we will get a VQ scan due to her renal function to further evaluate. Discussed Dr. Miguel orders are written Lab Data: Labs: Lab Results 01/10/21 01/10/21 01/10/21 Range/Units 09:10 09:10 09:10 WBC 13.4 H (4.0-10.0) 10^3/ uL RBC 2.86 L (4.1-5.3) 10^6/u L Hgb 8.5 L (11.5-15.3) g/dL Hct 25.9 L (37.0-47.0) % MCV 90.6 (81-99) fL MCH 29.7 (28.0-34.0) pg MCHC 32.8 (30.0-36.0) g/dL RDW 13.4 (12.1-15.1) % Plt Count 250 (130-400) 10^3/c mm MPV 12.5 H (7.4-10.4) fL Neut % (Auto) 72.9 % Lymph % (Auto) 16.8 % [place] % (Auto) 9.1 % Eos % (Auto) 0.3 % Baso % (Auto) 0.5 % Neut # (Auto) 9.78 H (1.8-7.7) 10^3/u L Lymph # (Auto) 2.3 (0.8-4.8) 10^3/u L [place] # (Auto) 1.2 H (0.2-0.9) 10^3/u L Eos # (Auto) 0.0 (0.0-0.8) 10^3/u L Baso # (Auto) 0.1 (0.0-0.1) 10^3/u L Nucleated RBC % (a uto) 0 % Nucleated RBCs # 0.0 /100WBC Specimen Type Sample Site ABG pH (7.35-7.45) ABG pCO2 (35-45) mmHg ABG pO2 (80.0-100.0) mmH g ABG HCO3 (22-26) mmol/L ABG O2 Saturation ABG Base Excess (-2.0-2.0) mmol/ L Rachid Test A-a O2 Gradient (5-10) mmHg Hematocrit (37-47) % Hgb O2 Saturation (95-100) % Carboxyhemoglobin (0.4-20.1) %THgb Methemoglobin (0.4-1.5) % Total Hemoglobin (12-16) g/dL Ionized Calcium (1.1-1.4) mmol/L O2 Delivery Device Ssn/Ssbn Assistant Navigator ID Sodium 131 L (136-145) mmol/L Potassium 4.5 (3.5-5.1) mmol/L Chloride 95 L (98-107) mmol/L Carbon Dioxide 19 L (22-29) mmol/L Anion Gap 21.5 H (5-19) BUN 69 H (8-23) mg/dL Creatinine 3.6 H (0.5-0.9) mg/dL GFR Calculation Not Reportable Glucose 232 H (65-115) mg/dL Calculated Osmolal ity 300 H (285-295) mOsm/k g Calcium 8.9 (8.5-10.5) mg/dL Total Bilirubin 0.4 (0.15-1.2) mg/dL AST 16 (0-32) U/L ALT 14 (0-33) U/L Alkaline Phosphata se 96 (35-105) IU/L Troponin T Baselin e 55 H (0-10) ng/L NT-Pro-B Natriuret Pep (0-450) pg/mL Total Protein 6.9 (6.6-8.7) g/dL Albumin 3.9 (3.5-5.2) g/dL Globulin 3.0 (1.3-4.6) g/dL 01/10/21 01/10/21 Range/Units 09:10 09:20 WBC (4.0-10.0) 10^3/ uL RBC (4.1-5.3) 10^6/u L Hgb (11.5-15.3) g/dL Hct (37.0-47.0) % MCV (81-99) fL MCH (28.0-34.0) pg MCHC (30.0-36.0) g/dL RDW (12.1-15.1) % Plt Count (130-400) 10^3/c mm MPV (7.4-10.4) fL Neut % (Auto) % Lymph % (Auto) % [place] % (Auto) % Eos % (Auto) % Baso % (Auto) % Neut # (Auto) (1.8-7.7) 10^3/u L Lymph # (Auto) (0.8-4.8) 10^3/u L [place] # (Auto) (0.2-0.9) 10^3/u L Eos # (Auto) (0.0-0.8) 10^3/u L Baso # (Auto) (0.0-0.1) 10^3/u L Nucleated RBC % (a uto) % Nucleated RBCs # /100WBC Specimen Type Arterial Sample Site Radial, right ABG pH 7.36 (7.35-7.45) ABG pCO2 32.2 L (35-45) mmHg ABG pO2 104.0 H (80.0-100.0) mmH g ABG HCO3 18.2 L (22-26) mmol/L ABG O2 Saturation 98.8 ABG Base Excess -6.5 L (-2.0-2.0) mmol/ L Rachid Test Pos A-a O2 Gradient 0.5 L (5-10) mmHg Hematocrit 27.1 L (37-47) % Hgb O2 Saturation 96.8 (95-100) % Carboxyhemoglobin 1.1 (0.4-20.1) %THgb Methemoglobin 0.9 (0.4-1.5) % Total Hemoglobin 8.9 L (12-16) g/dL Ionized Calcium 1.2 (1.1-1.4) mmol/L O2 Delivery Device Nrb Ssn/Ssbn Assistant Navigator ID Drupa Sodium 132.0 (136-145) mmol/L Potassium 4.4 (3.5-5.1) mmol/L Chloride (98-107) mmol/L Carbon Dioxide (22-29) mmol/L Anion Gap (5-19) BUN (8-23) mg/dL Creatinine (0.5-0.9) mg/dL GFR Calculation Glucose 282.0 H (65-115) mg/dL Calculated Osmolal ity (285-295) mOsm/k g Calcium (8.5-10.5) mg/dL Total Bilirubin (0.15-1.2) mg/dL AST (0-32) U/L ALT (0-33) U/L Alkaline Phosphata se (35-105) IU/L Troponin T Baselin e (0-10) ng/L NT-Pro-B Natriuret Pep 8176 H (0-450) pg/mL Total Protein (6.6-8.7) g/dL Albumin (3.5-5.2) g/dL Globulin (1.3-4.6) g/dL Discharge Plan Discharge Patient Disposition: Admitted As Inpatient Clinical Impression: Acute CHF (congestive heart failure), CKD (chronic kidney disease), Hypertension, Type 2 diabetes mellitus, Anemia Condition: Stable Coding Level of Care Code ED Training Development Manager for Chg Fwd Exam Detailed
[2021-01-10 10:00] LABS: NT Pro B Type Natriuretic Pept 8176 pg/mL (0-450)
[2021-01-10 10:18] LABS: ABG PCO2 32.2 mmHg (35-45); ABG PH Result 7.36 (7.35-7.45); Alveolar-Arterial Oxygen Gradi 0.5 mmHg (5-10); Arterial Blood Gas Hematocrit 27.1 % (37-47); Base Excess ABG -6.5 mmol/L (-2.0-2.0); Blood Gas Allen Test Pos; Blood Gas Sample Type Arterial; Carboxyhemoglobin 1.1 %THgb (0.4-20.1); HCO3 ABG 18.2 mmol/L (22-26); HGB O2 Sat 96.8 % (95-100); Ionized Calcium Level - ABG 1.2 mmol/L (1.1-1.4); Methemoglobin 0.9 % (0.4-1.5); Oxygen Saturation ABG 98.8; Potassium Level - ABG 4.4 mmol/L (3.5-5.0); Total Hemoglobin 8.9 g/dL (12-16)
[2021-01-10 10:22] LABS: Blood Gas Sample Site Radial, right; Oxygen Device NRB
[2021-01-10] MEDS: FUROsemide 10 mg/mL SDV 10mL 60 MG IVP ×2 (10:28→20:55)
[2021-01-10 11:00] LABS: Add Urine Microscopic? YES; Bilirubin Urine Neg (Negative); Blood Urine Neg (Negative); Glucose Urine UA Norm (Normal); Ketones Urine Negative (Negative); Leukocyte Esterase Urine Negative (Negative); Nitrate Urine Negative (Negative); Protein Urine Neg (Negative); Urine Appearance SL Hazy (CLEAR); Urine Color Yellow (Yellow); Urobilinogen Urine Norm (Negative); pH Urine 5 (5-7)
[2021-01-10 11:02] LABS: Bacteria Urine 4+ /hpf; Squamous Epithelial Cell Urine 0-4 /hpf (0-5); WBC Urine 25-40 /hpf (0-5)
[2021-01-10 11:06] LABS: Add Urine Culture? Yes
--- NOTE | 2021-01-10 11:10 | ECG_ITS ---
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
--- NOTE | 2021-01-10 11:34 | PC.NURSE ---
called to give report at 1105. ICU said they would have to call me back
--- NOTE | 2021-01-10 11:39 | P.HP_ITS ---
Providers/Chief Complaint Admitting Physician: Butch Patel MD Primary Care Provider: Yazmin Boland APN Chief Complaint: SOB History of Present Illness Monica Mendez is a 85 year old female who was recently in the hospital from a syncopal event. At that time she was discharged to long-term. Patient reported she is not exactly for sure why she was sent to the emergency department. In talking with the nursing facility nurse she reports she was at breakfast, and she was noted to be dyspneic with an oxygen saturation in the 70s on room air. She was placed on 4 L of oxygen and her saturation was only 85%. They believed her to be doing well this morning, and yesterday. She has had an occasional cough. She has not had any vomiting or diarrhea. She has had no fever. No history of Covid or Covid exposure. She has been fully vaccinated. Patient denies any chest discomfort. During her hospital stay she had an echocardiogram demonstrating an EF of 60%, 3/4 diastolic dysfunction, mild to moderate mitral regurgitation and mild aortic stenosis. Telemetry did not show any acute events. Carotid ultrasound showed no significant stenosis. She was found to have moderate spinal stenosis in the lumbar area, CT being done for weakness to her lower extremities. Myocardial perfusion was normal but 3 times daily ratio was elevated. Renal ultrasound demonstrated no hydronephrosis, bilateral renal cysts. In the emergency department BiPAP was placed on the patient. She received 60 mg of Lasix IV x1. Review of Systems General: Reports: 10 or more systems reviewed and unremarkable except in HPI and below Const: Denies: fever(s) or chills Eyes: Denies: change in vision ENMT: Denies: throat pain Card: Denies: chest pain Resp: Reports: dyspnea and non-productive cough GI: Denies: abdominal pain : Denies: flank pain Musc: Denies: neck pain Skin/Breast: Denies: rash Neuro: Denies: headache(s) Psych: Denies: anxiety or depression Endo: Denies: polyuria Nikunj/Lymph: Denies: easy bruising All/Imm: Denies: urticaria Medications/Allergies Home Medications Medication Instructions Recorded Confirmed Last Taken Type amlodipine 10 mg PO DAILY@1100,209904/01/20 01/04/21 01/03/21 History carvedilol 25 mg PO BID@1100,2100 04/01/2020/21 04/19/21 History cinnamon bark [Cinnamon] 1,000 mg PO DAILY@109904/01/20 01/04/21 01/03/21 History ferrous sulfate [iron] 325 mg PO BID@1099,209904/01/20 01/04/21 01/03/21 History gabapentin 600 mg PO BID@1099,209904/01/20 01/04/21 01/03/21 History multivitamin 1 tab PO DAILY@1099,209904/01/20 01/04/21 01/03/21 History simvastatin 40 mg PO DAILY@109904/01/20 01/04/21 01/03/21 History omeprazole 20 mg PO BID@1099,209901/04/21 01/04/21 Unknown History Basaglar KwikPen U-100 Insulin 40 unit SUBCUT BEDTIME #0 ml 01/08/21 01/04/21 01/03/21 Rx aspirin 81 mg PO Q24H 30 Days #30 tab 01/08/21 Unknown Rx insulin aspart U-100 [Novolog See Rx Instructions .ROUTE 01/08/21 Unknown Rx U-100 Insulin aspart] .COMPLEX #10 ml Allergies Allergy/AdvReac Type Severity Reaction Status Date / Time No Known Allergies Allergy Unverified 01/10/21 09:03 PFSH Acute PFSH: Medical History (Updated 01/10/21 @ 11:55 by Butch Patel MD) Anemia CKD (chronic kidney disease) Diastolic heart failure Hyperlipidemia Hypertension Lumbar spinal stenosis Non Hodgkin's lymphoma Peripheral neuropathy Type 2 diabetes mellitus Surgical History H/O lymph node biopsy H/O total hysterectomy with bilateral salpingo-oophorectomy (BSO) History of bilateral knee replacement History of bladder suspension procedure Family History Other CAD (coronary artery disease) Social History Smoking and tobacco status: never smoked Alcohol intake: never Household members: family Housing: House Marital status: Vitals/I&O/Wt Last Vital Signs Pulse 61 01/10/21 10:39 Resp 20 H 01/10/21 10:39 BP 133/62 01/10/21 10:39 Pulse Ox 93 01/10/21 10:39 Weight last 48 hrs Weight 107.955 kg Physical Exam Narrative: EXAM NARRATIVE: General exam is a pleasant female, who is on BiPAP and appears mildly to moderately dyspneic. She is able to complete 3 word sentences. HEENT: Atraumatic, normocephalic. BiPAP in place Neck is supple no lymphadenopathy or thyromegaly Cardiovascular regular rate and rhythm with 2/6 systolic murmur Lungs crackles bibasilar Abdomen is soft with positive bowel sounds. Obese. No obvious organomegaly. is deferred. Singleton noted Extremities 2+ edema to knees bilaterally. No cyanosis or clubbing Skin no rash Neuro no focal deficits Data : 01/10/21 09:10 01/10/21 09:10 Other data: ABG demonstrates a pH of 7.36, PCO2 32, PO2 104 on a nonrebreather. Calcium 8.9 LFTs normal Troponin baseline 55 BNP 8176 Urinalysis 25-40 white blood cells, 4+ bacteria, 0-4 squamous Chest x-ray small right effusion, bilateral infiltrates likely consistent with heart failure EKG demonstrates sinus rhythm, left axis deviation, poor R wave progression. There is no ST elevation or depression. A&P Assessment and plan (1) Diastolic heart failure: Presentation and laboratory most consistent with acute diastolic heart failure. Clinically she appears to have fluid overload, her sodium is slightly low and BNP is elevated. Chest x-ray demonstrates pulmonary edema and small right pleural effusion. Furosemide 60 mg IV every 12 hours. Monitor I's and O's closely. Close follow- up of renal dysfunction. Singleton to monitor output. Continue BiPAP and wean off as tolerated. She was in severe respiratory distress on presentation, and still in some respiratory distress currently despite BiPAP. Placement in ICU secondary to severe respiratory distress on presentation, now requiring BiPAP. Status: Acute (2) Acute and chronic respiratory failure with hypoxia: Secondary to above Status: Acute (3) Syncopal episodes: Most recent hospitalization was secondary to syncopal episode. A small number of people with pulmonary embolism present with syncopal episodes. Secondary to her renal dysfunction we will check a VQ scan. As she is dyspneic currently, had syncopal episode just days ago I believe this is needed. Status: Acute (4) CKD (chronic kidney disease): Continue to hold monitor kidney function closely during diuresis. She received 60 mg of Lasix IV for her diastolic heart failure. Status: Acute (5) Anemia: Anemia panel Stool Hemoccult Possibly secondary to renal dysfunction. Note that she is normochromic with normal RDW Status: Acute (6) Type 2 diabetes mellitus: Sliding scale insulin, mild currently Status: Acute (7) Hypertension: Continue home medications Status: Acute (8) UTI (urinary tract infection): Urine culture Ceftriaxone 1 g IV every 24 hours Status: Acute Additional A&P Information Multiple other medical problems as outlined in her past medical history Allow natural . Discussed in detail with the patient. Heparin will suffice for DVT prophylaxis Attestations Medical Necessity Statement*: Will need greater than 2 midnight hospital stay Time Spent in Patient Care: Greater than 35 minutes Critical Care Time: The high probability of a clinically significant, sudden or life threatening deterioration of the patient's [respiratory, cardiac, renal] system(s) required my full and direct attention, intervention and personal management. The critical care time is as shown. This time is in addition to time spent performing any reported procedures but includes the following: [x] Data and vital sign review and interpretation [x] Patient assessment, examination and intervention [x] Documentation [x] Medication orders and management Critical Care Time (min): 44 Coding Level of Care Code Acute Customer Experience Professional for Felice Jimenez Diagnoses Diastolic heart failure I50.30 Acute and chronic respiratory failure with hypoxia J96.21 Syncopal episodes R55 CKD (chronic kidney disease) N18.9 Anemia D64.9 Type 2 diabetes mellitus E11.9 Hypertension I10 UTI (urinary tract infection) N39.0
[2021-01-10 11:58] LABS: Troponin 5 2HR 56.47 ng/L (0-10); Troponin 5 2HR Delta 1.47 ABS# (0-10)
--- NOTE | 2021-01-10 12:10 | USCV_ITS ---
Vanessa, Monica Age: 85 Gender: F : 1935 Exam Date: 01/10/2021 13:13 Ordering Phys: Butch Patel MD Technologist: Desean Leon Exam Location: [facility]_ Indication: PAIN HISTORY: Lower extremity pain. PROCEDURES: Venous duplex imaging was performed in bilateral lower extremities. The following venous structures were evaluated: common femoral vein, profunda vein, proximal portion of the greater saphenous vein, superficial femoral vein, and the popliteal vein. In addition, the posterior tibial and peroneal trunk were evaluated. Serial compression, augmentation maneuvers, and spectral Doppler flow evaluation were performed. FINDINGS: Normal 2-D Doppler and augmentation and compressibility throughout the lower extremity venous structures. Additional imaging through the proximal calf veins also reveals no thrombus. Limited evaluation of the greater saphenous vein is patent with no thrombus.. CONCLUSIONS No DVT bilateral lower extremities. Dr. Nazia Goodman DO (Electronically Signed) Final Date: 10 January 2021 15:01 S
--- NOTE | 2021-01-10 13:13 | PC.NURSE ---
Pt arrives to ICU from ED, alert and oriented. RT at bedside, BiPap at 30% applied. 500 ml of urine emptied, suspect this is part of the 800ml Ed claimed after cath insertion. and Lico
--- NOTE | 2021-01-10 13:30 | NM_ITS ---
WS: [id number] NUCLEAR MEDICINE VENTILATION/PERFUSION LUNG SCAN HISTORY: dyspnea COMPARISON: 01/11/2018, 01/10/2021 and 01/04/2021 TECHNIQUE: Ventilation: 30.3 mCi of Technetium 99 DTPA aerosol inhaled. Perfusion: 5.3 mCi of technetium 99m MAA IV. Focal area of increased intense uptake at the RIGHT apex of uncertain etiology. There are no findings to suggest a pulmonary emboli. Cardiac silhouette is enlarged. NM/NM pul vent and perfus* [id number] IMPRESSION: 1. Low probability DVT. 2. Focal increased activity at the RIGHT apex on the perfusion portion only. O n the chest radiograph there is a small lesion measuring about 1 cm that was no t present in 2018. Vascular malformation or septic emboli. Recommend chest CT e valuation. Would prefer chest CT to be with IV contrast. If not possible noncon trast exam should be obtained.
[2021-01-10 14:09] LABS: Ferritin 460 ng/mL (15-150); Iron 19 ug/dL (37-145); Percent Saturation 9.4 % (20-50); Total Iron Binding Capacity 202 mcg/dl; Unsaturated Iron Binding 183 ug/dL (112-347)
[2021-01-10 14:25] LABS: Folate Level 19.8 ng/mL (4.8-37.3)
[2021-01-10 14:26] LABS: Vitamin B12 628 pg/mL (232-1245)
--- NOTE | 2021-01-10 15:03 | PC.NURSE ---
Pt to Nuc Med and back to ICU.
--- NOTE | 2021-01-10 15:09 | PC.NURSE ---
All medications ordered for 1300 to 1400 late due to going to [facility].
--- NOTE | 2021-01-10 15:10 | ECG_ITS ---
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1935 Requested By: Carlos Monsalve Order Number: [id number] Reading MD: VALERIE GORDILLO Measurements Intervals [place] Rate: 66 P: 49 IL: 215 QRS: -40 QRSD: 105 T: 69 QT: 423 QTc: 444 Interpretive Statements SINUS RHYTHM WITH FIRST DEGREE AV BLOCK MARKED LEFT AXIS DEVIATION [QRS AXIS < -30] Compared to ECG 01/05/2021 18:41:42 Intraventricular conduction delay no longer present Electronically Signed On 01-10-2021 21:30:03 CDT by VALERIE GORDILLO [email or web address] [email or web address] medical [id number]
[2021-01-10] MEDS: heparin 5,000 unit/mL INJ 1 mL 5000 UNIT SUBCUT (15:15)
[2021-01-10] MEDS: morphine 4 mg/mL SDV 1 mL 2 MG IVP (15:15)
[2021-01-10] MEDS: cefTRIAXone 1,000 MG in sodium chloride 0.9% (plus) 50 ML 100 MG IV (15:16)
[2021-01-10] MEDS: aspirin 81 mg EC Tablet PO (15:17)
[2021-01-10 15:31] LABS: Troponin 5 6HR 51.21 ng/L (0-10)
[2021-01-10 15:39] LABS: Troponin 5 6HR Delta -3.79 ng/L (0-12)
--- NOTE | 2021-01-10 15:42 | CTR_ITS ---
PROCEDURE INFORMATION: Exam: CT Chest Without Contrast; Diagnostic Exam date and time: 01/10/2021 3:50 PM Age: 85 years old Clinical indication: Shortness of breath; Patient HX: HX of non hodgkins lymphoma; Additional info: Abnormal perfusion study right apex TECHNIQUE: Imaging protocol: Diagnostic computed tomography of the chest without contrast. Radiation optimization: All CT scans at this facility use at least one of these dose optimization techniques: automated exposure control; mA and/or kV adjustment per patient size (includes targeted exams where dose is matched to clinical indication); or iterative reconstruction. COMPARISON: NM pul vent and perfus* [id number] 01/10/2021 1:30 PM RADIATION DOSE METRICS: Total DLP (mGy-cm): 914.27 FINDINGS: Lungs: Consolidated airspace disease bilaterally with some air bronchograms and some ground-glass opacities consistent with nonspecific moderate to severe bilateral pneumonia versus atypical pulmonary edema. Pleural spaces: Mild bilateral pleural fluid collections. Heart: Severe calcified coronary artery disease. Severe calcification in the mitral valve and/or mitral valve annulus. Moderate aortic valve calcification. Aorta: Unremarkable. No aortic aneurysm. Great vessels off aortic arch: Calcification of the thoracic aorta and/or great vessels consistent with atherosclerotic vessel disease. Lymph nodes: Unremarkable. No enlarged lymph nodes. Gallbladder and bile ducts: Multiple gallstones within the gallbladder. Kidneys and ureters: Bilateral nonobstructing renal calyceal stones. Bones/joints: Severe thoracic spondylosis. Soft tissues: Unremarkable. CT/CT chest wo con [id number] IMPRESSION: 1. Mild bilateral pleural fluid collections. 2. Consolidated airspace disease bilaterally with some air bronchograms and some ground-glass opacities consistent with nonspecific moderate to severe bilateral pneumonia versus atypical pulmonary edema. Radiation Dose CTDIVOL = (mGy): DLP = 914.27 (mGy-cm)
[2021-01-10 17:15] LABS: Glucose Point of Care 338 mg/dL (70-110)
--- NOTE | 2021-01-10 19:09 | PC.NURSE ---
Shift summary: Pt arrived to ICU after 1300. She had received Lasix in Ed. Per Ed 800ml of urine output, plus 500ml in iCU. She went to VQ scan, no DVT suspected then went for CT of chest. SHe was on BiPap when she arrived, she is now resting with eyes closed on 6lpm/NC. Se does complain of right hip pain, morphine given once. Bedside report given to ERICA Jarquin.
[2021-01-10] MEDS: gabapentin 300 mg Capsule 600 MG PO (20:44)
[2021-01-10 20:51] LABS: Glucose Point of Care 371 mg/dL (70-110)
[2021-01-10] MEDS: carvedilol 25 mg Tablet PO (20:54)
[2021-01-10] MEDS: amlodipine 10 mg Tablet PO (20:54)
[2021-01-10] MEDS: pantoprazole DR 40 mg Tablet PO (20:57)
[2021-01-11] VITALS (27 sets, daily range): BP systolic 108–163; BP diastolic 62–87; PULSE 54–77; RESP 7–27; TEMP 36.1–36.8; O2SAT 90–99
[2021-01-11] MEDS: heparin 5,000 unit/mL INJ 1 mL 5000 UNIT SUBCUT ×2 (01:06→13:39)
[2021-01-11 03:43] LABS: Basophils % 0.1 %; Hematocrit 24.2 % (37.0-47.0); Hemoglobin 7.9 g/dL (11.5-15.3); Lymphocytes % 10.6 %; Mean Corpuscular HGB Conc 32.6 g/dL (30.0-36.0); Mean Corpuscular Hemoglobin 29.9 pg (28.0-34.0); Mean Corpuscular Volume 91.7 fL (81-99); Mean Platelet Volume 12.5 fL (7.4-10.4); Monocytes # 0.3 10^3/uL (0.2-0.9); Neutrophils % 85.8 %; Nucleated Red Blood Cells % 0 %; Platelet Count 232 10^3/cmm (130-400); Red Blood Count 2.64 10^6/uL (4.1-5.3); Red Cell Distribution Width 13.6 % (12.1-15.1); White Blood Count 9.7 10^3/uL (4.0-10.0)
[2021-01-11 04:05] LABS: Anion Gap 18.2 (5-19); Blood Urea Nitrogen 78 mg/dL (8-23); Calcium 9.1 mg/dL (8.5-10.5); Carbon Dioxide 21 mmol/L (22-29); Chloride 97 mmol/L (98-107); Glucose 267 mg/dL (65-115); Osmolality Calculated 307 mOsm/kg (285-295); Potassium 4.2 mmol/L (3.5-5.1); Sodium 132 mmol/L (136-145)
[2021-01-11] MEDS: pantoprazole DR 40 mg Tablet PO (05:08)
[2021-01-11] MEDS: gabapentin 300 mg Capsule 600 MG PO (05:08)
--- NOTE | 2021-01-11 07:28 | P.PN_ITS ---
Subjective Subjective: Interval history: Monica reports she is feeling okay. She denies really being short of breath currently but reports again she did not feel it even when she came in. No chest discomfort. She has been weaned down to 4 l, and can complete approximately 5 word sentences. Medications: Reviewed: Yes Vitals/I&O/Wt Last Vital Signs Temp 97.0 F L 01/10/21 20:00 Pulse 65 01/11/21 07:23 Resp 10 L 01/11/21 06:00 BP 141/67 01/11/21 06:00 Pulse Ox 98 01/11/21 07:23 01/10/21 01/11/21 01/11/21 22:59 06:59 14:59 Intake Total 840 / 840 100 / 940 Output Total 500 / 500 1500 / 2000 Balance 340 / 340 -1400 / -1060 Weight last 48 hrs Weight 104.893 kg Weight 107.955 kg Physical Exam Narrative: EXAM NARRATIVE: General exam is a pleasant female, currently completing 5 word sentences with some shortness of breath with talking, mild Neck is supple no lymphadenopathy or thyromegaly Cardiovascular regular rate and rhythm with 2/6 systolic murmur Lungs left lung is clear, right with a few basilar crackles Abdomen is soft with positive bowel sounds. Obese. No obvious organomegaly. is deferred. Singleton noted Extremities 2+ edema to knees bilaterally. No cyanosis or clubbing Data : 01/11/21 03:18 01/11/21 03:18 A&P Assessment and plan (1) Diastolic heart failure: Presentation and laboratory most consistent with acute diastolic heart failure. Clinically she appears to have fluid overload, her sodium is slightly low and BNP is elevated. Chest x-ray demonstrates pulmonary edema and small right pleural effusion. Furosemide 60 mg IV every 12 hours started yesterday. She had about a liter of output. Today lung exam is markedly improved. VQ scan was negative. CT noncontrast chest pneumonia versus atypical pulmonary edema. Although I think presentation is most consistent with fluid overload I cannot completely exclude pneumonitis. She was placed on ceftriaxone on admission for UTI. Will change to Zosyn and linezolid. Check MRSA PCR. She is not currently producing any sputum. She is now weaned off BiPAP. If remains stable consider transfer out of the ICU. Status: Acute (2) Acute and chronic respiratory failure with hypoxia: Secondary to above Improved. Cannot completely exclude pneumonia at this time. Check procalcitonin. Zosyn, linezolid. Status: Acute (3) Syncopal episodes: Most recent hospitalization was secondary to syncopal episode. A small number of people with pulmonary embolism present with syncopal episodes. Secondary to her renal dysfunction we will check a VQ scan. VQ scan was low probability for pulmonary embolism Status: Acute (4) CKD (chronic kidney disease): Continue to hold monitor kidney function closely during diuresis. She received 60 mg of Lasix IV for her diastolic heart failure in the emergency department x1 and once 12 hours later. Creatinine slightly worse. She diuresed approximately 1 l. Hold further Lasix. Nephrology consultation. Status: Acute (5) Anemia: Iron deficient. Iron transfusion today Stool Hemoccult pending Possibly secondary to renal dysfunction as well. Note that she is normochromic with normal RDW Status: Acute (6) Type 2 diabetes mellitus: Sliding scale insulin, mild currently Blood sugar significantly high. Add Lantus 10 units every 24 hours Status: Acute (7) Hypertension: Continue home medications Blood pressure under better control Status: Acute (8) UTI (urinary tract infection): Urine culture pending Ceftriaxone changed to Zosyn to cover for respiratory organisms as well. Status: Acute Additional A&P Information Multiple other medical problems as outlined in her past medical history Allow natural . Discussed in detail with the patient. Heparin will suffice for DVT prophylaxis Attestations Medical Necessity Statement*: Needs continued hospitalization for treatment of acute diastolic congestive heart failure as well as UTI and possible pneumonia Coding Level of Care Code Acute Proofsheet Corrector for Felice Jimenez Diagnoses Diastolic heart failure I50.30 Acute and chronic respiratory failure with hypoxia J96.21 Syncopal episodes R55 CKD (chronic kidney disease) N18.9 Anemia D64.9 Type 2 diabetes mellitus E11.9 Hypertension I10 UTI (urinary tract infection) N39.0
[2021-01-11] MEDS: insulin glargine 100 units/1 mL 10 UNIT SUBCUT ×2 (07:38→21:45)
[2021-01-11] MEDS: linezolid premix 600 MG/300 ML PREMIX 300 MG IV ×2 (07:38→21:47)
--- NOTE | 2021-01-11 07:41 | XR_ITS ---
WS: [id number] Exam: XR hip RT 2-3V wo/w pel* [id number] Date/Time of Exam: 01/11/2021 7:47 AM Reason For Exam: pain, history of fall No acute fracture or dislocation. Moderate osteoarthritis noted. Subcortical cyst formation in the ac etabulum and femoral head. Normal soft tissues. XR/XR hip RT 2-3V wo/w pel* [id number] IMPRESSION: 1. Moderate osteoarthritis. No fracture or dislocation.
[2021-01-11 07:46] LABS: Procalcitonin 1.76 ng/mL (0-0.5)
[2021-01-11 07:56] LABS: Glucose Point of Care 295 mg/dL (70-110)
[2021-01-11] MEDS: atorvastatin 40 mg Tablet 20 MG PO (08:18)
[2021-01-11] MEDS: carvedilol 25 mg Tablet PO ×2 (08:18→20:54)
[2021-01-11] MEDS: piperacillin-tazobactam 3.375 GM in sodium chloride 0.9% (plus) 50 ML IV ×2 (08:18→20:56)
[2021-01-11] MEDS: iron sucrose 200 MG in sodium chloride 0.9% (100 ml) 100 ML 220 MG IV (09:11)
--- NOTE | 2021-01-11 09:12 | PC.NURSE ---
Iron sucrose admin delay due to pt going to xray.
[2021-01-11] MEDS: morphine 4 mg/mL SDV 1 mL 2 MG IVP (10:30)
--- NOTE | 2021-01-11 10:58 | P.CONIM_ITS ---
Providers/Reason For Consult Consulting Physican/Specialty*: Nephrology Reason for Consult*: Eval for MARIETTA on CKD Attending Physician: Butch Patel MD Primary Care Provider: Yazmin Boland APN History of Present Illness History of Present Illness Thank you for consultation, today at the pleasure of reviewing this very pleasant 85-year-old female for evaluation of acute on chronic kidney disease. She was recently hospitalized between 01/05 and 01/08 with a syncopal episode. Work-up during the hospitalization included an echo which demonstrated 60% ejection fraction, grade 3/4 diastolic dysfunction, severely elevated filling pressures, moderate LVH. It was felt that her syncopal episode was likely related to abnormal arrhythmia related to her LVH. She was subsequently discharged to [facility] She presented to our facility yesterday, in severe respiratory distress, with a respiratory rate in the 30s and saturating in the mid 80s. She was subsequently treated with BiPAP and received intravenous diuretics for hypervolemia. She had a pretty reasonable diuretic response, yesterday she made 800 mL in the emergency room, 500 mL following transfer to the floor and 1500 mL overnight. She now feels well, she is saturating well on 4 L nasal cannula. She is quite jovial. She still has some lower extremity edema, however, is better than when she first presented to our facilities. She has an established history of chronic kidney disease, she follows with Dr. Simon as an outpatient. I see that the serum creatinine has ranged between 5.1 i.e. last March, down to 3.0 on recent admission on 01/05. Yesterday his serum creatinine was 3.6 increasing to 4 mg/dL today. She was previously counseled about her potential need for hemodialysis including home modalities, however, after much discussion between herself, her and Dr. Simon, she has opted not to pursue hemodialysis in the future. Hemodynamics have been relatively stable following hospitalization, her last blood pressure was 119/83. No obvious nephrotoxins, however, she is currently taking Protonix. It is noted that she takes gabapentin at quite high dose. She otherwise denies any additional uremic symptoms. No issues passing her urine. Review of Systems Narrative: ROS - 12 point review of systems completed per HPI and subjective assessment, this includes Constitutional: No weakness, fatigue Respiratory: SOB on exertion, comfortable at rest CardioVasc: No chest pain, palpitations Gastrointestinal: No nausea, no vomiting Neurological: No seizures, no AMS Derm: No new rashes, lesions or wounds Immunological: No seasonal and no food allergies Meds/Allergies Home Medications and Allergies Home Medications Medication Instructions Recorded Confirmed Last Taken Type amlodipine 10 mg PO BID@0800,2100 04/01/20 01/10/21 01/10/21 History carvedilol 25 mg PO BID@,04/01/20 01/10/21 01/10/21 History ferrous sulfate [iron] 325 mg PO BID@0800,199904/01/20 01/10/21 01/10/21 History gabapentin 600 mg PO BID@,04/01/20 01/10/21 01/10/21 History multivitamin 1 tab PO BID@04/01/20 01/10/21 01/10/21 History simvastatin 40 mg PO DAILY@08 04/01/20 01/10/21 01/09/21 History omeprazole 20 mg PO BID@,01/04/21 01/10/21 01/10/21 History Basaglar KwikPen U-100 Insulin 40 unit SUBCUT BEDTIME #0 ml 01/08/21 01/10/21 01/09/21 Rx insulin aspart U-100 [Novolog See Rx Instructions .ROUTE 01/08/21 01/10/21 01/10/21 Rx U-100 Insulin aspart] .COMPLEX #10 ml acetaminophen 650 mg PO Q6H PRN 01/10/21 01/10/21 01/10/21 History aspirin 81 mg PO DAILY@0600 01/10/21 01/10/21 01/10/21 History bisacodyl 10 mg GA DAILY PRN 01/10/21 01/10/21 Unknown History magnesium hydroxide [Milk of 30 ml PO DAILY PRN 01/10/21 01/10/21 Unknown History Magnesia] Allergies Allergy/AdvReac Type Severity Reaction Status Date / Time No Known Allergies Allergy Unverified 01/10/21 09:03 Current Medications Current Medications Generic Name Dose Route Start Last Admin Trade Name Freq PRN Reason Stop Dose Admin Amlodipine Besylate 10 mg 01/10/21 21:00 01/10/21 20:54 Amlodipine 10 Mg Tablet PO 10 mg DAILY@1100,2100 MAYA Administration Aspirin 81 mg 01/10/21 13:30 01/10/21 15:17 Aspirin 81 Mg Ec Tablet PO 81 mg Q24H MAYA Administration Atorvastatin Calcium 20 mg 01/11/21 08:00 01/11/21 08:18 Atorvastatin 40 Mg Tablet PO 20 mg DAILY@08 MAYA Administration Carvedilol 25 mg 01/10/21 21:00 01/11/21 08:18 Carvedilol 25 Mg Tablet PO 25 mg BID@ MAYA Administration Gabapentin 600 mg 01/10/21 20:00 01/11/21 05:08 Gabapentin 300 Mg Capsule PO 600 mg BID@ MAYA Administration Heparin Sodium (Beef Lung) 5,000 unit 01/10/21 14:00 01/11/21 01:06 Heparin 5,000 Unit/Ml Inj 1 Ml SUBCUT 5,000 unit Q12H MAYA Administration Piperacillin Sod/Tazobactam 50 mls @ 12.5 mls/hr 01/11/21 08:00 01/11/21 08:18 Sod 3.375 gm/ Sodium Chloride IV 12.5 mls/hr Q12H MAYA Administration Protocol Linezolid 600 mg in 300 mls @ 300 mls/hr 01/11/21 07:30 01/11/21 07:38 Zyvox Premix IV 300 mls/hr Q12H MAYA Administration Protocol Insulin Aspart 0 unit 01/10/21 13:30 01/11/21 08:18 Insulin Aspart 100 Unit/1 Ml SUBCUT 8 unit WM&BEDTIME MAYA Administration Protocol Insulin Glargine 10 unit 01/11/21 07:30 01/11/21 07:38 Insulin Glargine 100 Units/1 Ml SUBCUT 10 unit BEDTIME MAYA Administration Morphine Sulfate 2 mg 01/10/21 13:30 01/11/21 10:30 Morphine 4 Mg/Ml Sdv 1 Ml IVP 2 mg Q4H PRN Administration SEVERE PAIN Pantoprazole Sodium 40 mg 01/10/21 22:00 01/11/21 05:[address] 40 Mg Tablet PO 40 mg BID@ MAYA Administration PFSH Acute PFSH: Medical History (Updated 01/10/21 @ 11:55 by Butch Patel MD) Anemia CKD (chronic kidney disease) Diastolic heart failure Hyperlipidemia Hypertension Lumbar spinal stenosis Non Hodgkin's lymphoma Peripheral neuropathy Type 2 diabetes mellitus Surgical History H/O lymph node biopsy H/O total hysterectomy with bilateral salpingo-oophorectomy (BSO) History of bilateral knee replacement History of bladder suspension procedure Family History Other CAD (coronary artery disease) Social History Smoking and tobacco status: never smoked Alcohol intake: never Household members: family Housing: House Marital status: Vitals/I&O/Wt Last Vital Signs Temp 96.9 F L 01/11/21 08:00 Pulse 56 L 01/11/21 10:30 Resp 13 01/11/21 10:30 BP 119/83 01/11/21 10:30 Pulse Ox 98 01/11/21 10:30 01/10/21 01/11/21 01/11/21 22:59 06:59 14:59 Intake Total 890 / 890 100 / 990 450 / 450 Output Total 500 / 500 1500 / 2000 Balance 390 / 390 -1400 / -1010 450 / 450 Weight last 48 hrs Weight 104.893 kg Weight 107.955 kg Physical Exam Narrative: EXAM NARRATIVE: Constitutional: Awake, comfortable HEENT: Wet mucosa, no jvp, non icteric Lungs: Bilaterally clear with some scattered basal rales CVS: S1 S2, no murmurs Abdo: Soft, BS ok Ext 4: 1-2+ edema, peripheral perfusion with no cyanosis Neurological: Grossly non-focal Data Micro: Micro: Microbiology 01/10/21 10:14 Urine Culture - Pr eliminary Urine,Clean Catch Gram Negative R ods A&P Additional A&P Information 1. Stage V chronic kidney disease. Some fluctuation in renal function over the last 1 year, however, she is roughly at baseline. Of note there was some slight decline in renal function following hospitalization, however, she still broadly within her baseline range. I agree with holding diuretics for the remainder of today, however, it is likely that she will need to resume these tomorrow perhaps at lower doses. I will stop Protonix given its association with increased risk of kidney damage. As she is close to her baseline, we do not need to do an extensive evaluation during her hospitalization. Of note her last renal ultrasound scan was pe rformed on 01/07 which demonstrated bilateral kidney cysts, no evidence of hydronephrosis. Not a candidate for dialysis. Avoid usual nephrotoxic agents. Strict I's and O's 2. Hypertension Okay to hold amlodipine for the time being, to allow the blood pressure to float up a little bit more. We will continue to monitor hemodynamics very closely. 3. We will dose medication for GFR less than 15, will drop the dose of gabapentin to 300 mg once a daily. 4. Respiratory difficulty on admission. It appears this is most dominantly volume related, I appreciate from Dr. Miguel, antibiotics have been initiated to cover for potential pneumonia. 5. Anemia Will check iron levels, EPO x 1 (Proctrit 10k iu x 1 01/11) Thank you for consultation, as always it is a pleasure to follow these patients with you. 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
[2021-01-11 11:33] LABS: Glucose Point of Care 348 mg/dL (70-110)
[2021-01-11] MEDS: epoetin alfa 10,000 unit/mL INJ 10000 UNIT SUBCUT (11:49)
--- NOTE | 2021-01-11 13:31 | PC.NURSE ---
Report faxed to [employer].
[2021-01-11] MEDS: acetaminophen 325 mg Tablet 650 MG PO (13:39)
[2021-01-11] MEDS: aspirin 81 mg EC Tablet PO (13:40)
--- NOTE | 2021-01-11 13:49 | PC.NURSE ---
Report called for room 262. Report jujuen to Romy Arias, all questions answered. Room not ready, still needing cleaned
--- NOTE | 2021-01-11 14:47 | PC.NURSE ---
Pt transferred to Room 262, [facility]. Further updates given to Romy Arias.
--- NOTE | 2021-01-11 14:52 | PC.NURSE ---
Jj, , called and updated on room change and pt's request for her glasses in the pink case.
[2021-01-11 17:08] LABS: Glucose Point of Care 396 mg/dL (70-110)
[2021-01-11] MEDS: famotidine 20 mg Tablet 40 MG PO (20:54)
[2021-01-11 21:09] LABS: Glucose Point of Care 389 mg/dL (70-110)
[2021-01-12] VITALS (14 sets, daily range): BP systolic 104–148; BP diastolic 63–80; PULSE 60–82; RESP 12–20; TEMP 36.6–37.4; O2SAT 93–97
[2021-01-12] MEDS: heparin 5,000 unit/mL INJ 1 mL 5000 UNIT SUBCUT ×2 (01:39→14:38)
[2021-01-12 05:55] LABS: Basophils % 0.2 %; Hematocrit 24.1 % (37.0-47.0); Hemoglobin 7.9 g/dL (11.5-15.3); Lymphocytes # 1.2 10^3/uL (0.8-4.8); Lymphocytes % 9.7 %; Mean Corpuscular HGB Conc 32.8 g/dL (30.0-36.0); Mean Corpuscular Hemoglobin 30.2 pg (28.0-34.0); Mean Platelet Volume 12.1 fL (7.4-10.4); Monocytes # 1.1 10^3/uL (0.2-0.9); Monocytes % 8.8 %; Neutrophils # 9.85 10^3/uL (1.8-7.7); Neutrophils % 80.6 %; Nucleated Red Blood Cells % 0 %; Platelet Count 273 10^3/cmm (130-400); Red Blood Count 2.62 10^6/uL (4.1-5.3); Red Cell Distribution Width 13.5 % (12.1-15.1); White Blood Count 12.2 10^3/uL (4.0-10.0)
[2021-01-12 06:15] LABS: Anion Gap 20.2 (5-19); Calcium 8.8 mg/dL (8.5-10.5); Carbon Dioxide 20 mmol/L (22-29); Chloride 95 mmol/L (98-107); Glucose 255 mg/dL (65-115); Iron 179 ug/dL (37-145); Magnesium 2.1 mg/dL (1.7-2.3); Osmolality Calculated 307 mOsm/kg (285-295); Potassium 4.2 mmol/L (3.5-5.1); Sodium 131 mmol/L (136-145)
[2021-01-12 06:26] LABS: Glucose Point of Care 270 mg/dL (70-110)
[2021-01-12 06:28] LABS: Blood Urea Nitrogen 86 mg/dL (8-23)
[2021-01-12 06:42] LABS: Unsaturated Iron Binding < 17 ug/dL (112-347)
--- NOTE | 2021-01-12 08:02 | P.PN_ITS ---
Subjective Subjective: Interval history: Monica reports she feels her breathing is about the same as yesterday. She does not feel great. No significant coughing. Ins and outs balanced yesterday. Nephrology consultation appreciated. Medications: Reviewed: Yes Vitals/I&O/Wt Last Vital Signs Temp 98 F 01/12/21 04:00 Pulse 60 01/12/21 06:00 Resp 18 01/12/21 04:00 BP 107/63 01/12/21 04:00 Pulse Ox 96 01/12/21 04:00 01/11/21 01/12/21 01/12/21 22:59 06:59 14:59 Intake Total 480 / 1750 350 / 2100 Output Total 1100 / 1100 1100 / 2200 Balance -620 / 650 -750 / -100 Weight last 48 hrs Weight 109.543 kg Weight 104.893 kg Weight 107.955 kg Physical Exam Narrative: EXAM NARRATIVE: General exam is a pleasant female, who appears mildly short of breath on 3 L of oxygen Neck is supple no lymphadenopathy or thyromegaly Cardiovascular regular rate and rhythm with 2/6 systolic murmur Lungs bilaterally crackles are noted right greater than left Abdomen is soft with positive bowel sounds. Obese. No obvious organomegaly. is deferred. [place] noted Extremities 1+ edema. No cyanosis or clubbing Data : 01/12/21 05:44 01/12/21 05:44 Micro: Microbiology 01/11/21 12:25 MRSA Culture - Final Nose 01/10/21 10:14 Urine Culture - Preliminary Urine,Clean Catch Gram Negative Rods A&P Assessment and plan (1) Diastolic heart failure: Presentation and laboratory most consistent with acute diastolic heart failure. Clinically she appears to have fluid overload, her sodium is slightly low and BNP is elevated. Chest x-ray demonstrates pulmonary edema and small right pleural effusion. Lasix was held yesterday secondary to worsening renal function. VQ scan was negative. CT noncontrast chest pneumonia versus atypical pulmonary edema. Although I think presentation is most consistent with fluid overload I cannot completely exclude pneumonitis. She is currently on Zosyn and linezolid. MRSA PCR negative so linezolid will be discontinued today. She is weaned off BiPAP, and is clinically improved. However, lung exam has worsened slightly since yesterday. Status: Acute (2) Acute and chronic respiratory failure with hypoxia: Secondary to above Improved. Cannot completely exclude pneumonia at this time. Procalcitonin was elevated but urinary tract infection is present as well. Currently on Zosyn and linezolid. Will discontinue linezolid today as MRSA PCR negative. Status: Acute (3) Syncopal episodes: Most recent hospitalization was secondary to syncopal episode. A small n umber of people with pulmonary embolism present with syncopal episodes. Secondary to her renal dysfunction we will check a VQ scan. VQ scan was low probability for pulmonary embolism Status: Acute (4) CKD (chronic kidney disease): Continue to hold monitor kidney function closely during diuresis. She received 60 mg of Lasix IV for her diastolic heart failure in the emergency department x1 and once 12 hours later. Creatinine slightly worse. She diuresed approximately 1 l. Lasix was held January 11 secondary to worsening renal function. I think it is likely patient will need another dose of Lasix today. At this point as she appears stable will defer until nephrology has a chance to visit with her as well. Status: Acute (5) Anemia: Iron deficient. Iron transfusion was given January 11 prior to repeat iron studies that were ordered by nephrology. Note that these have affected these results. Stool Hemoccult pending Possibly secondary to renal dysfunction as well. Note that she is normochromic with normal RDW Status: Acute (6) Type 2 diabetes mellitus: Sliding scale insulin, mild currently Blood sugar still somewhat high. Increase Lantus to 20 units Status: Acute (7) Hypertension: Blood pressure under control. Norvasc discontinued yesterday to allow for better renal perfusion by nephrology. Status: Acute (8) UTI (urinary tract infection): Urine culture pending, growing gram-negative izzy Currently on Zosyn Status: Acute Additional A&P Information Multiple other medical problems as outlined in her past medical history Allow natural . Discussed in detail with the patient. Heparin will suffice for DVT prophylaxis Attestations Medical Necessity Statement*: Needs continued hospitalization for IV antibiotics secondary to UTI, close follow-up of renal failure, continue diuresis of heart failure and treatment of possible pneumonia. Coding Level of Care Code Acute Senior Project Manager for [facility] Tony Diagnoses Diastolic heart failure I50.30 Acute and chronic respiratory failure with hypoxia J96.21 Syncopal episodes R55 CKD (chronic kidney disease) N18.9 Anemia D64.9 Type 2 diabetes mellitus E11.9 Hypertension I10 UTI (urinary tract infection) N39.0
[2021-01-12] MEDS: gabapentin 300 mg Capsule PO (09:03)
[2021-01-12] MEDS: atorvastatin 40 mg Tablet 20 MG PO (09:03)
[2021-01-12] MEDS: carvedilol 25 mg Tablet PO ×2 (09:03→21:24)
[2021-01-12] MEDS: piperacillin-tazobactam 3.375 GM in sodium chloride 0.9% (plus) 50 ML IV ×2 (09:12→20:22)
--- NOTE | 2021-01-12 11:10 | PM.PN ---
Subjective Subjective: Interval history: She is somewhat vague about how she feels when she is asked. About the same though. She is mobilizing around the jackson with a walker. No significant extremity edema. Some dyspnea on exertion but not at rest. No overt uremic symptoms. Medications: Reviewed: Yes Vitals/I&O/Wt Last Vital Signs Temp 98.2 F 01/12/21 08:30 Pulse 77 01/12/21 10:21 Resp 20 H 01/12/21 10:21 BP 124/68 01/12/21 08:30 Pulse Ox 97 01/12/21 10:21 01/11/21 01/12/21 01/12/21 22:59 06:59 14:59 Intake Total 480 / 1750 350 / 2100 240 / 240 Output Total 1100 / 1100 1100 / 2200 Balance -620 / 650 -750 / -100 240 / 240 Weight last 48 hrs Weight 109.543 kg Weight 104.893 kg Physical Exam Narrative: EXAM NARRATIVE: Constitutional: Awake, comfortable HEENT: Wet mucosa, no jvp, non icteric Lungs: Bilaterally clear with some scattered basal rales CVS: S1 S2, no murmurs Abdo: Soft, BS ok Ext 4: 1-2+ edema, peripheral perfusion with no cyanosis Neurological: Grossly non-focal Data : 01/12/21 05:44 01/12/21 05:44 Micro: Microbiology 01/11/21 12:25 MRSA Culture - Final Nose 01/10/21 10:14 Urine Culture - Preliminary Urine,Clean Catch Gram Negative Rods A&P Additional A&P Information 1. Stage V chronic kidney disease. Some fluctuation in renal function over the last 1 year, however, she is roughly at baseline. Of note there was some slight decline in renal function following hospitalization, however, she still broadly within her baseline range. Redose lasix 60mg iv x 1 today and will monitor he renal response No further diagnostic testing needed today Not a candidate for dialysis. PPI on hold Avoid usual nephrotoxic agents. Strict I's and O's 2. Hypertension Amlodipine held, monitor renal function closely 3. We will dose medication for GFR less than 15, cont gabapentin to 300 mg once a daily. 4. Respiratory difficulty on admission. It appears this is most dominantly volume related, I appreciate from Dr. Miguel, antibiotics have been initiated to cover for potential pneumonia. 5. Anemia Iron levels high, EPO x 1 (Proctrit 10k iu x 1 01/11) Thank you for consultation, as always it is a pleasure to follow these patients with you. 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
[2021-01-12 11:53] LABS: Glucose Point of Care 316 mg/dL (70-110)
[2021-01-12] MEDS: FUROsemide 10 mg/mL SDV 10mL 60 MG IVP (12:02)
[2021-01-12] MEDS: aspirin 81 mg EC Tablet PO (14:38)
[2021-01-12 17:09] LABS: Glucose Point of Care 160 mg/dL (70-110)
[2021-01-12 20:32] LABS: Glucose Point of Care 303 mg/dL (70-110)
[2021-01-12] MEDS: insulin glargine 100 units/1 mL 20 UNIT SUBCUT (21:24)
[2021-01-12] MEDS: famotidine 20 mg Tablet 40 MG PO (21:24)
[2021-01-13] VITALS (8 sets, daily range): BP systolic 114–131; BP diastolic 56–72; PULSE 68–76; RESP 16–18; TEMP 36.6–37.4; O2SAT 92–97
[2021-01-13] MEDS: heparin 5,000 unit/mL INJ 1 mL 5000 UNIT SUBCUT ×2 (02:04→13:20)
[2021-01-13 05:39] LABS: Basophils % 0.3 %; Eosinophils # 0.1 10^3/uL (0.0-0.8); Eosinophils % 1.4 %; Hematocrit 23.3 % (37.0-47.0); Hemoglobin 7.5 g/dL (11.5-15.3); Lymphocytes # 1.5 10^3/uL (0.8-4.8); Lymphocytes % 16.3 %; Mean Corpuscular HGB Conc 32.2 g/dL (30.0-36.0); Mean Corpuscular Hemoglobin 29.4 pg (28.0-34.0); Mean Corpuscular Volume 91.4 fL (81-99); Mean Platelet Volume 12.1 fL (7.4-10.4); Monocytes % 10.3 %; Neutrophils # 6.58 10^3/uL (1.8-7.7); Neutrophils % 70.3 %; Nucleated Red Blood Cells % 0 %; Platelet Count 283 10^3/cmm (130-400); Red Blood Count 2.55 10^6/uL (4.1-5.3); Red Cell Distribution Width 13.7 % (12.1-15.1); White Blood Count 9.4 10^3/uL (4.0-10.0)
[2021-01-13 05:56] LABS: Anion Gap 19.7 (5-19); Calcium 8.4 mg/dL (8.5-10.5); Carbon Dioxide 21 mmol/L (22-29); Chloride 99 mmol/L (98-107); Glucose 148 mg/dL (65-115); Osmolality Calculated 311 mOsm/kg (285-295); Potassium 3.7 mmol/L (3.5-5.1); Sodium 136 mmol/L (136-145)
[2021-01-13 06:07] LABS: Blood Urea Nitrogen 85 mg/dL (8-23)
[2021-01-13 06:27] LABS: Glucose Point of Care 154 mg/dL (70-110)
[2021-01-13] MEDS: gabapentin 300 mg Capsule PO (08:36)
[2021-01-13] MEDS: piperacillin-tazobactam 3.375 GM in sodium chloride 0.9% (plus) 50 ML IV ×2 (08:36→21:00)
[2021-01-13] MEDS: atorvastatin 40 mg Tablet 20 MG PO (08:36)
[2021-01-13] MEDS: carvedilol 25 mg Tablet PO ×2 (08:37→20:58)
--- NOTE | 2021-01-13 08:45 | PM.PN ---
Subjective Subjective: Interval history: Monica feels okay this morning. She denies any chest pain. She does not feel too short of breath. She was not wearing her oxygen when I came in, and I put this back on after checking her oxygen saturation which was approximately 88%. Medications: Reviewed: Yes Vitals/I&O/Wt Last Vital Signs Temp 98.2 F 01/13/21 07:03 Pulse 69 01/13/21 07:34 Resp 17 01/13/21 07:34 BP 120/63 01/13/21 07:03 Pulse Ox 93 01/13/21 07:34 01/12/21 01/13/21 01/13/21 22:59 06:59 14:59 Intake Total 480 / 1010 350 / 1360 Output Total 2200 / 2200 1850 / 4050 Balance -1720 / -1190 -1500 / -2690 Weight last 48 hrs Weight 109.089 kg Weight 109.543 kg Physical Exam Narrative: EXAM NARRATIVE: General exam is a pleasant female, who is now weaned down to 2 L of oxygen Neck is supple no lymphadenopathy or thyromegaly Cardiovascular regular rate and rhythm with 2/6 systolic murmur Lungs crackles have significantly cleared from yesterday. Diminished breath sounds are noted at the bases. Abdomen is soft with positive bowel sounds. Obese. No obvious organomegaly. Extremities 1+ edema. No cyanosis or clubbing Data : 01/13/21 05:22 01/13/21 05:22 Micro: Microbiology 01/10/21 10:14 Urine Culture - Final Urine,Clean Catch Escherichia coli A&P Assessment and plan (1) Diastolic heart failure: Presentation and laboratory most consistent with acute diastolic heart failure. Clinically she appears to have fluid overload, her sodium is slightly low and BNP is elevated. Chest x-ray demonstrates pulmonary edema and small right pleural effusion. VQ scan was negative. CT noncontrast chest pneumonia versus atypical pulmonary edema. Although I think presentation is most consistent with fluid overload I cannot completely exclude pneumonitis. She is currently on Zosyn. MRSA PCR negative so linezolid was discontinued January 12. She is weaned off BiPAP, and is clinically improved. January 12 she received a dose of IV Lasix 60mg with good clinical response of 2930 negative in the last 24 hours. Creat did not worsen. Initiate 60 mg of Lasix p.o. today. Potential discharge tomorrow. Status: Acute (2) Acute and chronic respiratory failure with hypoxia: Secondary to above Improved. Now on 2 L of oxygen Cannot completely exclude pneumonia at this time. Currently on Zosyn Status: Acute (3) Syncopal episodes: Most recent hospitalization was secondary to syncopal episode. A small number of people with pulmonary embolism present with syncopal episodes. Secondary to her renal dysfunction we will check a VQ scan. VQ scan was low probability for pulmonary embolism Status: Acute (4) CKD (chronic kidney disease): She received 60 mg of Lasix IV yesterday and diuresed well Clinical exam is much improved today Initiate 60 mg of Lasix p.o. today Status: Acute (5) Anemia: Iron deficient. Iron transfusion was given January 11 prior to repeat iron studies that were ordered by nephrology. Note that these have affected these results. Stool Hemoccult pending Possibly secondary to renal dysfunction as well. Note that she is normochromic with normal RDW. Nephrology ordered erythropoietin Status: Acute (6) Type 2 diabetes mellitus: Sliding scale insulin, mild currently Blood sugar still somewhat high. Increase Lantus to 20 units Status: Acute (7) Hypertension: Blood pressure under control. Norvasc discontinued to allow for better renal perfusion by nephrology. Status: Acute (8) UTI (urinary tract infection): Urine culture E. coli sensitive to Zosyn Currently on Zosyn Status: Acute Additional A&P Information Multiple other medical problems as outlined in her past medical history Allow natural . Discussed in detail with the patient. Heparin will suffice for DVT prophylaxis Plan to discharge back to skilled care. Attestations Medical Necessity Statement*: Needs continued hospitalization for close monitoring of renal function with diuresis, conversion to p.o. as well as treatment of UTI and possible pneumonia with IV antibiotics. 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
--- NOTE | 2021-01-13 08:50 | P.PN_ITS ---
Subjective Subjective: Interval history: feels worn out. Breathing better, but legs are still very tight Medications: Reviewed: Yes Vitals/I&O/Wt Last Vital Signs Temp 98.2 F 01/13/21 07:03 Pulse 69 01/13/21 07:34 Resp 17 01/13/21 07:34 BP 120/63 01/13/21 07:03 Pulse Ox 93 01/13/21 07:34 01/12/21 01/13/21 01/13/21 22:59 06:59 14:59 Intake Total 480 / 1010 350 / 1360 Output Total 2200 / 2200 1850 / 4050 Balance -1720 / -1190 -1500 / -2690 Weight last 48 hrs Weight 109.089 kg Weight 109.543 kg Physical Exam Const: COMMON NORMALS: no acute distress GENERAL APPEARANCE: cooperative Extremity: GENERAL: Yes edema (3+ leg edema) Data : 01/13/21 05:22 01/13/21 05:22 Micro: Microbiology 01/10/21 10:14 Urine Culture - Final Urine,Clean Catch Escherichia coli A&P Additional A&P Information Impression: 1. CHF, diuresing. Continue IV furosemide 2. E.coli UTI on IV antibiotics. Recommend remove clarke catheter 2. Hypervolemic hyponatremia, improved 3. Anemia, iron replete, has received erythropoeitin 4. 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 Has seen outpatient dust brush assembler Dr Simon. Recommend follow-up after discharge. 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
--- NOTE | 2021-01-13 09:11 | PC.SOCIAL ---
*IMM UPDATE* Gave patient IMM update, provided her copy of pg 2 . Verbalized understanding. Called pt's , Jj and gave him verbal IMM update via phone. Verbalized understanding. 01/13/21 @0854. Initialed, dated, timed and placed in chart.
[2021-01-13] MEDS: FUROsemide 40 mg Tablet 60 MG PO (09:57)
[2021-01-13 10:51] LABS: Glucose Point of Care 289 mg/dL (70-110)
[2021-01-13] MEDS: FUROsemide 10 mg/mL SDV 10mL 60 MG IVP ×2 (11:03→20:57)
[2021-01-13] MEDS: aspirin 81 mg EC Tablet PO (12:41)
[2021-01-13 17:40] LABS: Glucose Point of Care 173 mg/dL (70-110)
[2021-01-13 20:30] LABS: Glucose Point of Care 185 mg/dL (70-110)
[2021-01-13] MEDS: famotidine 20 mg Tablet 40 MG PO (20:58)
[2021-01-13] MEDS: acetaminophen 325 mg Tablet 650 MG PO (20:58)
[2021-01-13] MEDS: insulin glargine 100 units/1 mL 20 UNIT SUBCUT (21:10)
[2021-01-14] VITALS (10 sets, daily range): BP systolic 112–139; BP diastolic 55–78; PULSE 58–83; RESP 17–20; TEMP 36.6–37.2; O2SAT 94–99
[2021-01-14] MEDS: heparin 5,000 unit/mL INJ 1 mL 5000 UNIT SUBCUT ×2 (01:26→13:40)
[2021-01-14 05:22] LABS: Basophils % 0.5 %; Eosinophils # 0.4 10^3/uL (0.0-0.8); Eosinophils % 4.6 %; Hematocrit 26.5 % (37.0-47.0); Hemoglobin 8.6 g/dL (11.5-15.3); Lymphocytes # 1.8 10^3/uL (0.8-4.8); Lymphocytes % 23.8 %; Mean Corpuscular HGB Conc 32.5 g/dL (30.0-36.0); Mean Corpuscular Hemoglobin 29.8 pg (28.0-34.0); Mean Corpuscular Volume 91.7 fL (81-99); Mean Platelet Volume 11.4 fL (7.4-10.4); Monocytes # 0.8 10^3/uL (0.2-0.9); Monocytes % 10.6 %; Neutrophils # 4.48 10^3/uL (1.8-7.7); Neutrophils % 59.4 %; Nucleated Red Blood Cells % 0 %; Platelet Count 315 10^3/cmm (130-400); Red Blood Count 2.89 10^6/uL (4.1-5.3); Red Cell Distribution Width 13.7 % (12.1-15.1); White Blood Count 7.6 10^3/uL (4.0-10.0)
[2021-01-14 05:44] LABS: Anion Gap 16.4 (5-19); Blood Urea Nitrogen 75 mg/dL (8-23); Calcium 8.6 mg/dL (8.5-10.5); Carbon Dioxide 25 mmol/L (22-29); Chloride 100 mmol/L (98-107); Glucose 141 mg/dL (65-115); Osmolality Calculated 311 mOsm/kg (285-295); Potassium 3.4 mmol/L (3.5-5.1); Sodium 138 mmol/L (136-145)
[2021-01-14 06:36] LABS: Glucose Point of Care 152 mg/dL (70-110)
[2021-01-14] MEDS: potassium chloride ER 20 mEq Tablet 40 MEQ PO (08:22)
[2021-01-14] MEDS: carvedilol 25 mg Tablet PO ×2 (08:22→21:29)
[2021-01-14] MEDS: gabapentin 300 mg Capsule PO (08:22)
[2021-01-14] MEDS: piperacillin-tazobactam 3.375 GM in sodium chloride 0.9% (plus) 50 ML IV ×2 (08:23→21:27)
[2021-01-14] MEDS: atorvastatin 40 mg Tablet 20 MG PO (08:23)
--- NOTE | 2021-01-14 10:03 | PM.PN ---
Subjective Subjective: Interval history: Monica feels better. Her legs are less tight. Doesn't feel short of breath. Medications: Reviewed: Yes Vitals/I&O/Wt Last Vital Signs Temp 97.8 F 01/14/21 08:00 Pulse 83 01/14/21 08:01 Resp 20 H 01/14/21 08:01 BP 139/64 01/14/21 08:00 Pulse Ox 94 01/14/21 08:01 01/13/21 01/14/21 01/14/21 22:59 06:59 14:59 Intake Total 120 / 535 50 / 585 480 / 480 Output Total 1000 / 2050 1200 / 3250 600 / 600 Balance -880 / -1515 -1150 / -2665 -120 / -120 Weight last 48 hrs Weight 101.179 kg Weight 109.089 kg Physical Exam Narrative: EXAM NARRATIVE: General exam is a pleasant female, no respiratory distress Neck is supple no lymphadenopathy or thyromegaly Cardiovascular regular rate and rhythm with 2/6 systolic murmur Lungs clear but diminished at the bases Abdomen is soft with positive bowel sounds. Obese. No obvious organomegaly. Extremities 1+ edema. No cyanosis or clubbing Urinary Catheter Management^: Singleton: Cath Placed During This Visit: yes, but has since been removed by the nurse Reason for Continuing Indwelling Catheter: Decision to DC Catheter Date Urinary Catheter Removed: 01/13/21 Time Urinary Catheter Discontinued: 15:00 Data : 01/14/21 05:10 01/14/21 05:10 A&P Assessment and plan (1) Diastolic heart failure: Presentation and laboratory most consistent with acute diastolic heart failure. Clinically she appears to have fluid overload, her sodium is slightly low and BNP is elevated. Chest x-ray demonstrates pulmonary edema and small right pleural effusion. VQ scan was negative. CT noncontrast chest pneumonia versus atypical pulmonary edema. Although I think presentation is most consistent with fluid overload I cannot completely exclude pneumonitis. She is currently on Zosyn. MRSA PCR negative so linezolid was discontinued January 12. She is weaned off BiPAP, and is clinically improved. IV Lasix was restarted by nephrology yesterday, and patient had good response. Renal function has improved somewhat with better cardiac compensation. Status: Acute (2) Acute and chronic respiratory failure with hypoxia: Secondary to above Improved. Now on 2 L of oxygen Cannot completely exclude pneumonia at this time. Currently on Zosyn Status: Acute (3) Syncopal episodes: Most recent hospitalization was secondary to syncopal episode. A small number of people with pulmonary embolism present with syncopal episodes. Secondary to her renal dysfunction we will check a VQ scan. VQ scan was low probability for pulmonary embolism Status: Acute (4) CKD (chronic kidney disease): Improving slightly with compensation of heart failure, and diuresis Status: Acute (5) Anemia: Iron deficient. Iron transfusion was given January 11 prior to repeat iron studies that were ordered by nephrology. Note that these have affected these results. Stool Hemoccult pending Possibly secondary to renal dysfunction as well. Note that she is normochromic with normal RDW. Nephrology ordered erythropoietin Hemoglobin has improved some with diuresis Status: Acute (6) Type 2 diabetes mellitus: Sliding scale insulin, mild currently Blood sugar currently controlled on lower dose of long-acting insulin on admission. Consideration to changing this dose to 20 units on discharge should be made secondary to her renal dysfunction. Status: Acute (7) Hypertension: Blood pressure under control. Norvasc discontinued to allow for better renal perfusion by nephrology. Status: Acute (8) UTI (urinary tract infection): Urine culture E. coli sensitive to Zosyn Currently on Zosyn Status: Acute Additional A&P Information Multiple other medical problems as outlined in her past medical history Allow natural . Discussed in detail with the patient. 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
[2021-01-14] MEDS: FUROsemide 10 mg/mL SDV 10mL 60 MG IVP ×2 (10:10→21:53)
[2021-01-14 12:12] LABS: Glucose Point of Care 247 mg/dL (70-110)
--- NOTE | 2021-01-14 12:16 | P.PN_ITS ---
Subjective Subjective: Interval history: Feels better today. She is mobilizing around the [place] with a walker. No significant extremity edema. Some dyspnea on exertion but not at rest. No overt uremic symptoms. Medications: Reviewed: Yes Vitals/I&O/Wt Last Vital Signs Temp 97.8 F 01/14/21 08:00 Pulse 83 01/14/21 08:01 Resp 20 H 01/14/21 08:01 BP 139/64 01/14/21 08:00 Pulse Ox 94 01/14/21 08:01 01/13/21 01/14/21 01/14/21 22:59 06:59 14:59 Intake Total 120 / 535 50 / 585 480 / 480 Output Total 1000 / 2050 1200 / 3250 600 / 600 Balance -880 / -1515 -1150 / -2665 -120 / -120 Weight last 48 hrs Weight 101.179 kg Weight 109.089 kg Physical Exam Narrative: EXAM NARRATIVE: Constitutional: Awake, comfortable HEENT: Wet mucosa, no jvp, non icteric Lungs: Bilaterally clear with some scattered basal rales CVS: S1 S2, no murmurs Abdo: Soft, BS ok Ext 4: 1-2+ edema, peripheral perfusion with no cyanosis Neurological: Grossly non-focal Urinary Catheter Management^: Singleton: Cath Placed During This Visit: yes, but has since been removed by the nurse Reason for Continuing Indwelling Catheter: Decision to DC Catheter Date Urinary Catheter Removed: 01/13/21 Time Urinary Catheter Discontinued: 15:00 Data : 01/14/21 05:10 01/14/21 05:10 A&P Additional A&P Information 1. Stage V chronic kidney disease. Renal function remains stable, better after effective diuresis. PPI on hold Avoid usual nephrotoxic agents. Strict I's and O's 2. Hypertension Robust, close monitoring, Bp meds downtitrated 3. We will dose medication for GFR less than 15, cont gabapentin to 300 mg once a daily. 4. Respiratory difficulty on admission. Much better 5. Anemia Iron levels high, EPO x 1 (Proctrit 10k iu x 1 01/11) 6. Dispo Likely home on oral Lasix tomorrow Thank you for consultation, as always it is a pleasure to follow these patients with you. Juan Diego Lua MD Nephrology [phone] Patient seen and examined via telemedicine, with the assistance of the bedside RN > 25 min spent in evaluation and mgmt of patient Attestations Medical Necessity Statement*: mgmt of renal failure Coding Level of Care Code Acute Tactical Debriefer Officer for Felice Jimenez
[2021-01-14] MEDS: aspirin 81 mg EC Tablet PO (13:40)
[2021-01-14] MEDS: acetaminophen 325 mg Tablet 650 MG PO (13:44)
[2021-01-14 17:06] LABS: Glucose Point of Care 218 mg/dL (70-110)
[2021-01-14 21:11] LABS: Glucose Point of Care 235 mg/dL (70-110)
[2021-01-14] MEDS: famotidine 20 mg Tablet 40 MG PO (21:28)
[2021-01-14] MEDS: insulin glargine 100 units/1 mL 20 UNIT SUBCUT (21:29)
[2021-01-15] MEDS: acetaminophen 325 mg Tablet 650 MG PO ×2 (01:27→10:06)
[2021-01-15] MEDS: heparin 5,000 unit/mL INJ 1 mL 5000 UNIT SUBCUT ×2 (01:28→13:41)
[2021-01-15 03:21] VITALS: BP 139/68; PULSE 63; RESP 18; TEMP 36.7; O2SAT 96
[2021-01-15 06:13] LABS: Glucose Point of Care 138 mg/dL (70-110)
[2021-01-15 06:14] LABS: Basophils # 0.1 10^3/uL (0.0-0.1); Basophils % 0.7 %; Eosinophils # 0.4 10^3/uL (0.0-0.8); Eosinophils % 5.6 %; Hemoglobin 9.2 g/dL (11.5-15.3); Lymphocytes # 1.8 10^3/uL (0.8-4.8); Lymphocytes % 22.9 %; Mean Corpuscular HGB Conc 31.7 g/dL (30.0-36.0); Mean Corpuscular Hemoglobin 29.2 pg (28.0-34.0); Mean Corpuscular Volume 92.1 fL (81-99); Mean Platelet Volume 11.5 fL (7.4-10.4); Monocytes # 0.8 10^3/uL (0.2-0.9); Monocytes % 10.4 %; Neutrophils # 4.55 10^3/uL (1.8-7.7); Neutrophils % 59.4 %; Nucleated Red Blood Cells % 0 %; Platelet Count 329 10^3/cmm (130-400); Red Blood Count 3.15 10^6/uL (4.1-5.3); Red Cell Distribution Width 13.7 % (12.1-15.1); White Blood Count 7.7 10^3/uL (4.0-10.0)
[2021-01-15 06:37] LABS: Alanine Aminotransferase 15 U/L (0-33); Albumin Level 3.7 g/dL (3.5-5.2); Alkaline Phosphatase 89 IU/L (35-105); Anion Gap 16.9 (5-19); Aspartate Amino Transferase 14 U/L (0-32); Blood Urea Nitrogen 79 mg/dL (8-23); Calcium 9.4 mg/dL (8.5-10.5); Carbon Dioxide 25 mmol/L (22-29); Chloride 100 mmol/L (98-107); Glucose 123 mg/dL (65-115); Osmolality Calculated 311 mOsm/kg (285-295); Potassium 3.9 mmol/L (3.5-5.1); Sodium 138 mmol/L (136-145); Total Bilirubin 0.3 mg/dL (0.15-1.2); Total Protein 6.7 g/dL (6.6-8.7)
[2021-01-15 07:45] VITALS: BP 165/79; PULSE 72; RESP 18; TEMP 36.6; O2SAT 98
[2021-01-15 08:18] VITALS: PULSE 58; RESP 18; O2SAT 98
[2021-01-15] MEDS: gabapentin 300 mg Capsule PO (09:27)
[2021-01-15] MEDS: carvedilol 25 mg Tablet PO (09:27)
[2021-01-15] MEDS: piperacillin-tazobactam 3.375 GM in sodium chloride 0.9% (plus) 50 ML IV (09:28)
[2021-01-15] MEDS: atorvastatin 40 mg Tablet 20 MG PO (09:33)
--- NOTE | 2021-01-15 10:47 | PC.SOCIAL ---
*IMM UPDATE* Gave patient IMM update, provided her copy of page 2. Verbalized understanding. 01/15/21 @0940 Initialed, dated, timed and placed in chart.
--- NOTE | 2021-01-15 11:00 | PM.PN ---
Subjective Subjective: Interval history: Feels better today. She is mobilizing around the [place] with a walker. No significant extremity edema. Some dyspnea on exertion but not at rest. No overt uremic symptoms. No new issues today Medications: Reviewed: Yes Vitals/I&O/Wt Last Vital Signs Temp 97.9 F 01/15/21 07:45 Pulse 58 L 01/15/21 08:18 Resp 18 01/15/21 08:18 BP 165/79 01/15/21 07:45 Pulse Ox 98 01/15/21 08:18 01/14/21 01/15/21 01/15/21 22:59 06:59 14:59 Intake Total 480 / 1490 50 / 1540 Output Total 450 / 1250 400 / 1650 400 / 400 Balance 30 / 240 -350 / -110 -400 / -400 Weight last 48 hrs Weight 100.301 kg Weight 101.179 kg Physical Exam Narrative: EXAM NARRATIVE: Constitutional: Awake, comfortable HEENT: Wet mucosa, no jvp, non icteric Lungs: Bilaterally clear with some scattered basal rales CVS: S1 S2, no murmurs Abdo: Soft, BS ok Ext 4: 1-2+ edema, peripheral perfusion with no cyanosis Neurological: Grossly non-focal Urinary Catheter Management^: Singleton: Cath Placed During This Visit: yes, but has since been removed by the nurse Reason for Continuing Indwelling Catheter: Decision to DC Catheter Date Urinary Catheter Removed: 01/13/21 Time Urinary Catheter Discontinued: 15:00 Data : 01/15/21 05:46 01/15/21 05:46 A&P Additional A&P Information 1. Stage V chronic kidney disease. Renal function remains stable with minor flux PPI on hold Avoid usual nephrotoxic agents. Strict I's and O's 2. Hypertension Robust, close monitoring d 3. We will dose medication for GFR less than 15, cont gabapentin to 300 mg once a daily. 4. Respiratory difficulty on admission. Much better 5. Anemia Iron levels high, EPO x 1 (Proctrit 10k iu x 1 01/11) 6. Dispo Oral Lasix now on board, ok for DC from my perspective Thank you for consultation, as always it is a pleasure to follow these patients with you. Juan Diego Lua MD Nephrology [phone] Patient seen and examined via telemedicine, with the assistance of the bedside RN > 25 min spent in evaluation and mgmt of patient Attestations Medical Necessity Statement*: eval for CKD Coding Level of Care Code Acute Sound Effects Manager for Chg Tony
[2021-01-15 11:01] LABS: Glucose Point of Care 326 mg/dL (70-110)
--- NOTE | 2021-01-15 11:31 | PM.DCS ---
Discharge Providers Date of Admission: 01/10/21 10:57 Date of Discharge: January 15, 2021 Attending Provider at Admission: Butch Patel MD Attending Provider at Discharge: Christofer Hunt Primary Care Provider: Yazmin Boland APN Diagnoses at Discharge Discharge Diagnosis (1) Diastolic heart failure: Status: Acute (2) Acute and chronic respiratory failure with hypoxia: Status: Acute (3) Syncopal episodes: Status: Acute (4) CKD (chronic kidney disease): Status: Acute (5) Anemia: Status: Acute (6) Type 2 diabetes mellitus: Status: Acute (7) Hypertension: Status: Acute (8) UTI (urinary tract infection): Status: Acute Reason for Visit Reason for Visit: SOB Hospital Course Hospital Course 85-year-old lady with history of CKD, anemia, diastolic heart failure, HTN, HLD, DM 2, lumbar spinal stenosis, NHL, was recently admitted for assessment after syncopal event, was brought to ER for assessment from correction due to dyspnea, hypoxia, noted in the 70s on room air, started on 4 L of oxygen with saturation rising only up to 85%. She was treated for exacerbation of diastolic congestive heart failure, received IV diuretic, requiring temporary BiPAP support, diuresed well, with reduction in weight, currently down to 100 kg. Oxygen requirement has been weaning down, currently is on room air, although just earlier was still on 1 L nasal cannula. Singleton was maintained for monitoring of urine output. She has had no recurrence of syncopal episode. She has no chest pain or pressure. She reports she has been up and walking. The hospital with a walker. Due to recent syncopal event was also assessed by VQ scan as well as lower extremity Doppler. VQ scan showed low probability for PE. Lower extremity duplex showed no DVT. Chest CT obtained showed possible pneumonia versus atypical pulmonary edema. She was treated with Zosyn while in the hospital for UTI. Initially Zosyn with linezolid due to possible pneumonia. MRSA PCR was negative. Linezolid was discontinued. Urine culture eventually grew E. coli resistant to ampicillin. Intermediate sensitivity to Unasyn. During her hospitalization she was followed by nephrology. Her PPI at this time is held. She started on famotidine. She is so far does not need dialysis, but needs continued follow-up of renal function, as well as anemia. She is discharged with 40 mg oral Lasix daily at this time. Please continue for at least a week, subsequently possibly switch to as needed, but please reassess and adjust therapy depending on volume status, renal function. Appointment at heart care clinic for event heart monitor on January 18 at 1 PM. Physical Exam Const: COMMON NORMALS: no acute distress and patient oriented x3 OTHER: Awake, alert, conversant. Speaks in full sentences. Not in pain. HENMT: COMMON NORMALS: oropharynx normal Neck/C-Spine: COMMON NORMALS: no JVD Resp: COMMON NORMALS: normal respiratory effort and clear to auscultation bilaterally AUSCULTATION: clear to auscultation bilaterally Cardio: COMMON NORMALS: no JVD, regular rhythm, S1 normal heart sound present, S2 normal heart sound present and No murmurs present (Cardio) RHYTHM: regular rhythm HEART SOUNDS: S1 normal heart sound present and S2 normal heart sound present GI: COMMON NORMALS: Normal to inspection, nondistended, normoactive bowel sounds present, Soft to palpation and non-tender PALPATION: Yes Soft to palpation Extremity: COMMON NORMALS: no joint enlargement GENERAL: Yes edema (1+) Neuro: COMMON NORMALS: patient oriented x3 and moves all extremities Skin: COMMON NORMALS: no rashes or lesions noted GENERAL SKIN EXAM: no rashes or lesions noted Urinary Catheter Management^: Singleton: Cath Placed During This Visit: yes, but has since been removed by the nurse Reason for Continuing Indwelling Catheter: Decision to DC Catheter Date Urinary Catheter Removed: 01/13/21 Time Urinary Catheter Discontinued: 15:00 Discharge Data Data Completed and Pending: Completed Studies During Hospitalization Category Date Time Status CT chest wo con 7 1250 Routine Cat Scan 01/10/21 15:42 Completed XR chest 1V sandra ble 77200 Stat Exams 01/10/21 09:10 Completed XR hip RT 2-3V wo /w pel* [id number] Rout ine Exams 01/11/21 07:41 Completed NM pul vent and p erfus* [id number] Urgen t Nuc Med 01/10/21 13:30 [place] [id number] Routin e Ultrasound 01/10/21 12:10 Completed Pending at discharge Category Date Time Status Miscellaneous Stephanie t Routine Lab 01/14/21 10:19 Received Labs from last 24 hours 01/15/21 01/15/21 01/15/21 10:54 06:02 05:46 WBC RBC Hgb Hct MCV MCH MCHC RDW Plt Count MPV Neut % (Auto) Lymph % (Auto) [place] % (Auto) Eos % (Auto) Baso % (Auto) Neut # (Auto) Lymph # (Auto) [place] # (Auto) Eos # (Auto) Baso # (Auto) Nucleated RBC % (a uto) Nucleated RBCs # Sodium 138 Potassium 3.9 Chloride 100 Carbon Dioxide 25 Anion Gap 16.9 BUN 79 H Creatinine 3.8 H GFR Calculation Not Reportable Glucose 123 H POC Glucose 326 H 138 H Calculated Osmolal ity 311 H Calcium 9.4 Total Bilirubin 0.3 AST 14 ALT 15 Alkaline Phosphata se 89 Total Protein 6.7 Albumin 3.7 Globulin 3.0 01/15/21 01/14/21 01/14/21 05:46 21:08 16:32 WBC 7.7 RBC 3.15 L Hgb 9.2 L Hct 29.0 L MCV 92.1 MCH 29.2 MCHC 31.7 RDW 13.7 Plt Count 329 MPV 11.5 H Neut % (Auto) 59.4 Lymph % (Auto) 22.9 [place] % (Auto) 10.4 Eos % (Auto) 5.6 Baso % (Auto) 0.7 Neut # (Auto) 4.55 Lymph # (Auto) 1.8 [place] # (Auto) 0.8 Eos # (Auto) 0.4 Baso # (Auto) 0.1 Nucleated RBC % (a uto) 0 Nucleated RBCs # 0.0 Sodium Potassium Chloride Carbon Dioxide Anion Gap BUN Creatinine GFR Calculation Glucose POC Glucose 235 H 218 H Calculated Osmolal ity Calcium Total Bilirubin AST ALT Alkaline Phosphata se Total Protein Albumin Globulin 01/14/21 10:59 WBC RBC Hgb Hct MCV MCH MCHC RDW Plt Count MPV Neut % (Auto) Lymph % (Auto) [place] % (Auto) Eos % (Auto) Baso % (Auto) Neut # (Auto) Lymph # (Auto) [place] # (Auto) Eos # (Auto) Baso # (Auto) Nucleated RBC % (a uto) Nucleated RBCs # Sodium Potassium Chloride Carbon Dioxide Anion Gap BUN Creatinine GFR Calculation Glucose POC Glucose 247 H Calculated Osmolal ity Calcium Total Bilirubin AST ALT Alkaline Phosphata se Total Protein Albumin Globulin Vitals: Last Vital Signs Temp 97.9 F 01/15/21 07:45 Pulse 58 L 01/15/21 08:18 Resp 18 01/15/21 08:18 BP 165/79 01/15/21 07:45 Pulse Ox 98 01/15/21 08:18 Discharge Plan Discharge Patient Disposition: Xfer SNF Condition: Stable Prescriptions: New furosemide 40 mg Tablet 40 mg PO DAILY@0800 Qty: 30 RF: 0 famotidine 20 mg Tablet 40 mg PO BEDTIME Qty: 30 RF: 0 cefdinir 300 mg capsule 300 mg PO BID 3 Days Qty: 6 RF: 0 Continued multivitamin Tablet 1 tab PO BID@, RF: 0 carvedilol 25 mg tablet 25 mg PO BID@, RF: 0 gabapentin 600 mg tablet 600 mg PO BID@ RF: 0 simvastatin 40 mg tablet 40 mg PO DAILY@08 RF: 0 ferrous sulfate [iron] 325 mg (65 mg iron) Tablet 325 mg PO BID@0800,1999 RF: 0 insulin aspart U-100 [Novolog U-100 Insulin aspart] 100 unit/mL Solution See Rx Instructions .ROUTE .COMPLEX Qty: 10 RF: 0 acetaminophen 650 mg Tablet 650 mg PO Q6H PRN (Reason: Pain) RF: 0 Milk of Magnesia 400 mg/5 mL Suspension 30 ml PO DAILY PRN (Reason: Constipation) RF: 0 bisacodyl 10 mg Suppository 10 mg [place] DAILY PRN (Reason: Constipation) RF: 0 aspirin 81 mg tablet,delayed release (DR/EC) 81 mg PO DAILY@0600 RF: 0 Changed Basaglar KwikPen U-100 Insulin 100 unit/mL (3 mL) insulin pen 20 unit SUBCUT BEDTIME Qty: 0 RF: 0 Discontinued amlodipine 10 mg tablet 10 mg PO BID@0800,2099 RF: 0 omeprazole 20 mg capsule,delayed release(DR/EC) 20 mg PO BID@ RF: 0 Discharge Orders: Discharge Order (Routine); Ordered 01/15/21 Ordered By: Christofer Hunt Referrals: [facility] [Outside] Yazmin Boland MECHANICAL ENGINEERING SPECIALIST [Primary Care Provider] - 4-7 days Jason Simon MD [Referring] - 2 weeks (Patient needing appt with Dr. Simon in 2 weeks.) Margot Sheldon MD [Physician] - 02/07/21 1:30 pm (APPOINTMENT FOR EVENT [facility]ITOR [facility] ON JANUARY 18 AT 1:00) Discharge Diet: As Directed Discharge Activity: Increase activity as tolerated, As per PT/OT instructions and Oxygen as instructed Patient Instructions: Famotidine (By mouth), Furosemide (By mouth), Heart Failure (GEN), Syncope (GEN), Anemia (GEN) Activity Restrictions/Additional Instructions: APPOINTMENT AT [facility] FOR EVENT HEART MONITOR ON JANUARY 18 AT 1:00 Maintain renal diabetic nondialysis diet. Please follow-up on anemia, recheck blood count at next appointment. Please resume follow-up with nephrology. Please continue to monitor blood pressures. Optimize control. Clinically doing well on room air, sometimes may need 1 L nasal cannula support as needed. Discharge Attestations Time Spent in Discharge Care*: greater than 30 min Status at Discharge: Cognitive status at discharge: cognitively intact, Behavioral status at discharge: cooperative, Quality Metrics Clinical Quality Measures During this hospital stay, did patient experience: None Coding Level of Care Code Acute Chg FW DC note Diagnoses Diastolic heart failure I50.30 Acute and chronic respiratory failure with hypoxia J96.21 Syncopal episodes R55 CKD (chronic kidney disease) N18.9 Anemia D64.9 Type 2 diabetes mellitus E11.9 Hypertension I10 UTI (urinary tract infection) N39.0
[2021-01-15 11:37] VITALS: BP 124/61; PULSE 59; RESP 18; TEMP 36.7; O2SAT 96
[2021-01-15] MEDS: FUROsemide 40 mg Tablet PO (12:17)
[2021-01-15] MEDS: aspirin 81 mg EC Tablet PO (13:41)
[2021-01-15 16:00] VITALS: BP 167/70; PULSE 71; RESP 18; TEMP 36.6; O2SAT 93
[2021-01-15 17:04] LABS: Glucose Point of Care 187 mg/dL (70-110)
[2021-01-15 17:10] VITALS: BP 167/70; PULSE 71; RESP 18; TEMP 36.6; O2SAT 93
--- NOTE | 2021-01-15 18:14 | PC.NURSE ---
Patient discharged in stable condition in the care of transfer personal.
== END 2021-01-15 17:10 | disposition skilled nursing facility (03) | DRG 291 ==
LOC: ER 10:59 → ICU 11:06 → MEDSURG 01-11 14:31
PROVIDERS: Internal Medicine Nephrology; Admitting Provider Internal Medicine; Emergency Provider Family Medicine; PCP Nurse Practitioner; Visit Provider Internal Medicine
DX: I13.2 Hypertensive heart and chronic kidney disease with heart failure and with stage 5 chronic kidney disease, or end stage renal disease (principal); I50.33 Acute on chronic diastolic (congestive) heart failure; J96.21 Acute and chronic respiratory failure with hypoxia; J18.9 Pneumonia, unspecified organism; N18.5 Chronic kidney disease, stage 5; C85.90 Non-Hodgkin lymphoma, unspecified, unspecified site; N39.0 Urinary tract infection, site not specified; Q61.02 Congenital multiple renal cysts; E11.22 Type 2 diabetes mellitus with diabetic chronic kidney disease; I08.0 Rheumatic disorders of both mitral and aortic valves; M48.061 Spinal stenosis, lumbar region without neurogenic claudication; D63.1 Anemia in chronic kidney disease; E78.5 Hyperlipidemia, unspecified; E11.42 Type 2 diabetes mellitus with diabetic polyneuropathy; Z90.710 Acquired absence of both cervix and uterus; Z90.722 Acquired absence of ovaries, bilateral; Z96.653 Presence of artificial knee joint, bilateral; Z66 Do not resuscitate; R55 Syncope and collapse; D50.9 Iron deficiency anemia, unspecified; Z79.82 Long term (current) use of aspirin; Z79.4 Long term (current) use of insulin; B96.20 Unspecified Escherichia coli [E. coli] as the cause of diseases classified elsewhere
CPT/HCPCS: 36415; 36416; 36600; 71045; 71250; 73502; 78014; 80048; 80051; 80053; 81001; 82274; 82330; 82607; 82728; 82746; 82805; 82962; 83540; 83550; 83735; 83880; 84145; 84311; 84484; 85025; 87077; 87086; 87186; 87641; 93005; 93970; 94660; 96365; 96372; 96375; 97110; 97116; 97161; 97530; 99285; A9540; A9567; J0696; J1644; J1756; J1815 ×2; J1940; J2020; J2270; J2543; Q3014; Q4081

== ENCOUNTER → 2021-02-03 11:07 | Outpatient (BNVA) | payer MEDICARE, OTHER, SELFPAY | PROVIDERS: PCP Nurse Practitioner; Referring Provider Family Medicine; Visit Provider Specialist | DX: R55 Syncope and collapse (principal); R29.898 Other symptoms and signs involving the musculoskeletal system | CPT/HCPCS: 99215 ==

== ENCOUNTER 2021-02-17 13:06 | Inpatient (IN) | payer MEDICARE, OTHER, SELFPAY ==
[2021-02-17 13:14] VITALS: BP 115/59; PULSE 72; RESP 18; TEMP 36.4; O2SAT 95; BMI 33.9
--- NOTE | 2021-02-17 13:54 | XR_ITS ---
WS: [id number] Portable AP upright chest, 02/17/2021 Clinical Data: fall Comparison: Portable chest, 01/10/2021. Findings: No nodules, masses or effusions are seen. The heart is enlarged. The pulmonary vascularity is not increased. No pneumonia or pneumothorax is seen. The aortic arch and descending aorta show tor tuosity. There are synovial calcifications and osteoarthritic change of the left shoulder joint. XR/XR chest 1V portable [id number] Impression: Atherosclerosis and cardiomegaly.
--- NOTE | 2021-02-17 13:55 | ECG_ITS ---
[facility] Test Date: 2021-02-17 Pat Name: Monica Mendez Department: Room: Gender: Female Stencil Inspector: : 1935 Requested By: Andrae Massey Order Number: [id number] Ilana MD: Colt Connolly M.D. Measurements Intervals [place] Rate: 63 P: 63 [place]: 229 QRS: -54 QRSD: 102 T: 12 QT: 431 QTc: 444 Interpretive Statements SINUS RHYTHM WITH FIRST DEGREE AV BLOCK INCOMPLETE RIGHT BUNDLE BRANCH BLOCK [90+ ms QRS DURATION, TERMINAL R IN V1/V2, 40+ ms S IN I/aVL/V4/V5/V6] LEFT ANTERIOR FASCICULAR BLOCK [QRS AXIS <= -45, QR IN I, RS IN II] ANTERIOR MYOCARDIAL INFARCTION [40+ ms Q WAVE AND/OR ST/T ABNORMALITY IN V3/V4], OF INDETERMINATE AGE Compared to ECG 01/10/2021 16:56:40 Incomplete right bundle-branch block now present Left anterior fascicular block now present Myocardial infarct finding now present Left-axis deviation no longer present Intraventricular conduction delay no longer present Electronically Signed On 02-17-2021 18:39:51 CDT by Colt Connolly M.D. [id number]
--- NOTE | 2021-02-17 14:17 | XR_ITS ---
WS: [id number] Left leg including the tibia and fibula, AP and lateral views, 02/17/2021 Clinical Data: fall Comparison: Left leg, 03/25/2019. Findings: There is a healing fracture of the proximal left fibula. The long stemmed components of the left knee arthroplasty in the distal femur and proximal tibia remain the same. There is diminished mineralizat ion in the left mid tibia but this is not changed in the last 2 years. The distal left tibia and fibula are unremarkable. XR/XR tibia fibula LT 2V [id number] Impression: 1. Healing fracture proximal left fibula. 2. No change in left knee arthroplasty. 3. Diminished mineralization in the left mid tibia unchanged.
--- NOTE | 2021-02-17 14:17 | XR_ITS ---
WS: [id number] Right knee, 3 views, 02/17/2021. Clinical Data: fall Comparison: Right knee, 06/16/2008 Findings: There is a healing fracture of the proximal right fibula. Right knee arthroplasty remains in good position with no loosening. The soft tissues show minimal vas cular calcification. XR/XR knee RT 3V* [id number] Impression: 1. Healing fracture of proximal right fibula. 2. Stable right knee arthroplasty. Kellgren-Gomez Classification: NA
--- NOTE | 2021-02-17 14:17 | XR_ITS ---
WS: [id number] Left knee, 3 views, 02/17/2021 Clinical Data: fall Comparison: Left leg, 03/25/2019. Findings: The knee arthroplasty with longstem prostheses involving both the femoral and tibial portions can be seen. There is a healing fracture of the proximal left fibula. Soft tissue is unremarkable. XR/XR knee LT 3V* [id number] Impression: 1. Healing fracture proximal left fibula. 2. Long-stem knee arthroplasty unchanged Kellgren-Gomez Classification: NA
[2021-02-17 14:46] LABS: Basophils # 0.1 10^3/uL (0.0-0.1); Basophils % 1.3 %; Eosinophils # 0.3 10^3/uL (0.0-0.8); Eosinophils % 2.4 %; Hematocrit 31.1 % (37.0-47.0); Hemoglobin 10.1 g/dL (11.5-15.3); Lymphocytes # 2.7 10^3/uL (0.8-4.8); Lymphocytes % 24.9 %; Mean Corpuscular HGB Conc 32.5 g/dL (30.0-36.0); Mean Corpuscular Hemoglobin 29.4 pg (28.0-34.0); Mean Corpuscular Volume 90.7 fL (81-99); Monocytes % 8.8 %; Neutrophils # 6.84 10^3/uL (1.8-7.7); Neutrophils % 62.3 %; Nucleated Red Blood Cells % 0 %; Platelet Count 284 10^3/cmm (130-400); Red Blood Count 3.43 10^6/uL (4.1-5.3); Red Cell Distribution Width 14.6 % (12.1-15.1)
[2021-02-17 15:03] LABS: Troponin(5th) Baseline 68 ng/L (0-10)
[2021-02-17 15:04] LABS: Lactate (Lactic Acid level) 1.8 mmol/L (0.5-2.2)
[2021-02-17 15:43] LABS: Alanine Aminotransferase 12 U/L (0-33); Albumin Level 4.1 g/dL (3.5-5.2); Alkaline Phosphatase 133 IU/L (35-105); Anion Gap 20.8 (5-19); Aspartate Amino Transferase 14 U/L (0-32); Blood Urea Nitrogen 45 mg/dL (8-23); Calcium 9.2 mg/dL (8.5-10.5); Carbon Dioxide 24 mmol/L (22-29); Chloride 95 mmol/L (98-107); Globulin 2.8 g/dL (1.3-4.6); Glucose 342 mg/dL (65-115); NT Pro B Type Natriuretic Pept 1379 pg/mL (0-450); Osmolality Calculated 307 mOsm/kg (285-295); Potassium 3.8 mmol/L (3.5-5.1); Sodium 136 mmol/L (136-145); Total Bilirubin 0.2 mg/dL (0.15-1.2); Total Protein 6.9 g/dL (6.6-8.7)
--- NOTE | 2021-02-17 15:55 | ECG_ITS ---
[facility] Test Date: 2021-02-17 Pat Name: Monica Mendez Department: Room: Gender: Female Call Center Operator: : 1935 Requested By: Andrae Massey Order Number: [id number] Ilana MD: Colt Connolly M.D. Measurements Intervals [place] Rate: 71 P: 75 [place]: 229 QRS: -50 QRSD: 108 T: 28 QT: 426 QTc: 464 Interpretive Statements SINUS RHYTHM WITH FIRST DEGREE AV BLOCK WITH OCCASIONAL VENTRICULAR PREMATURE COMPLEXES INCOMPLETE RIGHT BUNDLE BRANCH BLOCK [90+ ms QRS DURATION, TERMINAL R IN V1/V2, 40+ ms S IN I/aVL/V4/V5/V6] LEFT ANTERIOR FASCICULAR BLOCK [QRS AXIS <= -45, QR IN I, RS IN II] ANTERIOR MYOCARDIAL INFARCTION [40+ ms Q WAVE AND/OR ST/T ABNORMALITY IN V3/V4], OF INDETERMINATE AGE Compared to ECG 02/17/2021 14:27:33 Ventricular premature complex(es) now present Myocardial infarct finding still present Electronically Signed On 02-17-2021 18:55:59 CDT by Colt Connolly M.D. [id number]
[2021-02-17 17:32] LABS: Troponin 5 2HR 64.76 ng/L (0-10); Troponin 5 2HR Delta -3.24 ABS# (0-10)
--- NOTE | 2021-02-17 17:42 | W.ED.FALL ---
HPI - Fall General: Chief Complaint: Fall Stated Complaint: FALL/ LEGS NUMB Time Seen by Provider: 02/17/21 13:19 History of Present Illness: HPI Narrative: The patient is an 85-year-old female with past medical history CHF, diabetes, chronic kidney disease. She has been seen and worked up with a monitor and noted to have some pauses which were thought to possibly Be causing her episodes of syncope that she has been having as an outpatient. Dr. Connolly saw her and contemplated placing a pacemaker as well as an outpatient. She was recently discharged from here for a CHF exacerbation and sent to the care home. 3 days ago she was sent to her home. This morning she says she got out of bed and felt like her legs were even there they were so weak and fell to the floor where she laid for a couple hours and came to the ER. She says she is weak and cannot walk. Admits pain to left knee, left vang. No ankle pain, hip pain, chest pain, shortness of breath. No significant injuries really noted from the fall however she does have increased general weakness which is new. She says she was doing well at the care home and walking around just fine. Normally she walks with a walker but now she is unable to. MD complaint: fall Fall from: out of bed Fall witnessed: no Place fall occurred: home Loss of consciousness: None Prolonged down time: yes and hour(s) (2) Symptoms prior to fall: none Severity: moderate Quality: sharp Associated symptoms-after fall: Reports other (general weakness); Denies abdominal pain, chest pain, confusion, difficulty walking, headache(s) or neck pain Review of Systems General: Reports: 10 or more systems reviewed and unremarkable except in HPI and below Const: Reports: fatigue; Denies: fever(s) or chills Eyes: Denies: change in vision, blurry vision or eye redness ENMT: Denies: throat pain, swelling of lips/tongue, ear or mastoid pain or nasal congestion Card: Denies: chest pain, palpitations, irregular heart rhythm, edema, dyspnea on exertion or orthopnea Resp: Denies: dyspnea, productive cough or non-productive cough GI: Denies: abdominal pain, diarrhea or GI cramping : Denies: flank pain, difficulty voiding, urinary frequency or urinary urgency Musc: Denies: neck pain, back pain, extremity pain, joint pain, joint redness, limited range of motion or muscle weakness Skin/Breast: Denies: rash, pruritus, erythema, skin pain or skin tenderness Neuro: Denies: headache(s), numbness in extremities, weakness in extremities, sensory changes, difficulty walking, dizziness, confusion or Slurred speech present Psych: Denies: anxiety or depression Endo: Denies: polyuria All/Imm: Denies: urticaria, throat swelling or tongue swelling PFSH ED PFSH: Medical History (Updated 02/17/21 @ 17:48 by Andrae Massey MD) Anemia CKD (chronic kidney disease) Diastolic heart failure Hyperlipidemia Hypertension Lumbar spinal stenosis Non Hodgkin's lymphoma Peripheral neuropathy Syncopal episodes Syncope and collapse Type 2 diabetes mellitus Surgical History H/O lymph node biopsy H/O total hysterectomy with bilateral salpingo-oophorectomy (BSO) History of bilateral knee replacement History of bladder suspension procedure Family History Father CAD (coronary artery disease) Brother Cancer Grandmother Diabetes Denies family history of Clotting disorder Dementia Chronic kidney disease (CKD) Suicide Anesthesia complication Bleeding disorder Lung disease Stroke Social History Smoking and tobacco status: never smoked Alcohol intake: never Household members: family Housing: House Marital status: History of recent travel: No Physical Exam Const: COMMON NORMALS: no acute distress, average body habitus, patient oriented x3, no limitations, healthy appearing, alert and well nourished GENERAL APPEARANCE: cooperative, comfortable, well kempt and well developed ORIENTATION/CONSCIOUSNESS: Yes awake, Yes oriented to person, Yes oriented to place and Yes oriented to time HENMT: COMMON NORMALS: normocephalic, external ears normal and Normal external nose present HEAD & SCALP: normal to inspection and normocephalic NOSE: Normal external nose present EXTERNAL EAR: Yes external ears normal MOUTH: Normal oral and palatal mucosa present THROAT: posterior oropharynx normal Eye: COMMON NORMALS: Equal, round and reactive pupils present and EOMs intact bilaterally GENERAL EYE: appearance normal, both eyes and all related structures PUPIL: Yes Equal, round and reactive pupils present Neck/C-Spine: COMMON NORMALS: full ROM, no lymphadenopathy, no meningeal signs and no JVD GENERAL: Yes normal visual inspection Lymph: LYMPHATIC: no lymphadenopathy noted Chest: COMMONS NORMALS: normal inspection of the chest and normal palpation of entire chest wall Resp: COMMON NORMALS: normal respiratory effort, No retractions, No use of accessory muscles, clear to auscultation bilaterally and percussion normal EFFORT & INSPECTION: Yes able to speak in complete sentences AUSCULTATION: clear to auscultation bilaterally PERCUSSION: percussion normal Cardio: COMMON NORMALS: no JVD, regular rate, regular rhythm, S1 normal heart sound present, S2 normal heart sound present and Peripheral pulses 2+ throughout RATE: regular rate RHYTHM: regular rhythm HEART SOUNDS: S1 normal heart sound present and S2 normal heart sound present PERIPHERAL PULSES: Peripheral pulses 2+ throughout GI: COMMON NORMALS: Normal to inspection, nondistended, normoactive bowel sounds present, Soft to palpation, non-tender and no masses INSPECTION: Yes normal to inspection PALPATION: Yes Soft to palpation : COMMON NORMALS: Yes no CVA tenderness BLADDER/KIDNEY EXAM: Yes no CVA tenderness Back/Pelvis: COMMON NORMALS: no CVA tenderness, thoracic and lumbar spine normal to inspection, no thoracic nor lumbar tenderness and thoraco-lumbar ROM normal Extremity: COMMON NORMALS: normal to inspection, full ROM, capillary refill normal, no joint enlargement and no pedal edema GENERAL: Yes normal exam except as noted Neuro: COMMON NORMALS: patient oriented x3, CN's II-XII intact bilaterally, moves all extremities, no focal motor deficits, no sensory deficits noted and gait normal SENSORIUM/ORIENTATION: Yes alert, Yes oriented to person, Yes oriented to place and Yes oriented to time MENINGEAL SIGNS: Yes no meningeal signs OTHER: She has general weakness in all extremities. She is unable to walk even with a walker and assistance. No focal weakness. Psych: COMMON NORMALS: mental status grossly normal, Normal thought process present, cooperative, normal affect and speech normal APPEARANCE: Yes well kempt ATTITUDE: Yes calm SPEECH: Yes normal speech THOUGHT PROCESS: Normal thought process present Skin: COMMON NORMALS: no rashes or lesions noted GENERAL SKIN EXAM: no rashes or lesions noted Course Vital Signs: Vital signs: Vital Signs Temperature 97.6 F 02/17/21 13:14 Pulse Rate 72 02/17/21 13:14 Respiratory Rate 18 02/17/21 13:14 Blood Pressure 115/59 02/17/21 13:14 Pulse Oximetry 95 02/17/21 13:14 MDM - Fall MDM Narrative: Medical decision making narrative: The patient came to the ER after she was discharged to a care home related to a CHF exacerbation. She has been home for the past 3 days and this morning got out of bed and immediately fell to the ground and laid there a couple hours. She is too weak to walk. She is unable to walk even with a walker and someone holding her. She says she was doing well at the care home with walking but absolutely cannot walk since she woke up this morning. Labs were mostly unremarkable she does have chronic kidney disease which she is at her baseline. She is unable to go home because she cannot walk. Discussed with Dr. Arrieta who accepts for observation Lab Data: Labs: Lab Results 02/17/21 02/17/21 02/17/21 Range/Units 14:34 14:34 14:34 WBC 11.0 H (4.0-10.0) 10^3/ uL RBC 3.43 L (4.1-5.3) 10^6/u L Hgb 10.1 L (11.5-15.3) g/dL Hct 31.1 L (37.0-47.0) % MCV 90.7 (81-99) fL MCH 29.4 (28.0-34.0) pg MCHC 32.5 (30.0-36.0) g/dL RDW 14.6 (12.1-15.1) % Plt Count 284 (130-400) 10^3/c mm MPV 12.0 H (7.4-10.4) fL Neut % (Auto) 62.3 % Lymph % (Auto) 24.9 % [place] % (Auto) 8.8 % Eos % (Auto) 2.4 % Baso % (Auto) 1.3 % Neut # (Auto) 6.84 (1.8-7.7) 10^3/u L Lymph # (Auto) 2.7 (0.8-4.8) 10^3/u L [place] # (Auto) 1.0 H (0.2-0.9) 10^3/u L Eos # (Auto) 0.3 (0.0-0.8) 10^3/u L Baso # (Auto) 0.1 (0.0-0.1) 10^3/u L Nucleated RBC % (a uto) 0 % Nucleated RBCs # 0.0 /100WBC Sodium 136 (136-145) mmol/L Potassium 3.8 (3.5-5.1) mmol/L Chloride 95 L (98-107) mmol/L Carbon Dioxide 24 (22-29) mmol/L Anion Gap 20.8 H (5-19) BUN 45 H (8-23) mg/dL Creatinine 3.3 H (0.5-0.9) mg/dL GFR Calculation Not Reportable Glucose 342 H (65-115) mg/dL Calculated Osmolal ity 307 H (285-295) mOsm/k g Lactate 1.8 (0.5-2.2) mmol/L Calcium 9.2 (8.5-10.5) mg/dL Total Bilirubin 0.2 (0.15-1.2) mg/dL AST 14 (0-32) U/L ALT 12 (0-33) U/L Alkaline Phosphata se 133 H (35-105) IU/L Troponin T Baselin e (0-10) ng/L Troponin T 120 Min [place] (0-10) ng/L Delta Troponin T (0-10) ABS# NT-Pro-B Natriuret Pep 1379 H (0-450) pg/mL Total Protein 6.9 (6.6-8.7) g/dL Albumin 4.1 (3.5-5.2) g/dL Globulin 2.8 (1.3-4.6) g/dL 02/17/21 02/17/21 Range/Units 14:34 16:34 WBC (4.0-10.0) 10^3/ uL RBC (4.1-5.3) 10^6/u L Hgb (11.5-15.3) g/dL Hct (37.0-47.0) % MCV (81-99) fL MCH (28.0-34.0) pg MCHC (30.0-36.0) g/dL RDW (12.1-15.1) % Plt Count (130-400) 10^3/c mm MPV (7.4-10.4) fL Neut % (Auto) % Lymph % (Auto) % [place] % (Auto) % Eos % (Auto) % Baso % (Auto) % Neut # (Auto) (1.8-7.7) 10^3/u L Lymph # (Auto) (0.8-4.8) 10^3/u L [place] # (Auto) (0.2-0.9) 10^3/u L Eos # (Auto) (0.0-0.8) 10^3/u L Baso # (Auto) (0.0-0.1) 10^3/u L Nucleated RBC % (a uto) % Nucleated RBCs # /100WBC Sodium (136-145) mmol/L Potassium (3.5-5.1) mmol/L Chloride (98-107) mmol/L Carbon Dioxide (22-29) mmol/L Anion Gap (5-19) BUN (8-23) mg/dL Creatinine (0.5-0.9) mg/dL GFR Calculation Glucose (65-115) mg/dL Calculated Osmolal ity (285-295) mOsm/k g Lactate (0.5-2.2) mmol/L Calcium (8.5-10.5) mg/dL Total Bilirubin (0.15-1.2) mg/dL AST (0-32) U/L ALT (0-33) U/L Alkaline Phosphata se (35-105) IU/L Troponin T Baselin e 68 H (0-10) ng/L Troponin T 120 Min [place] 64.76 H (0-10) ng/L Delta Troponin T -3.24 L (0-10) ABS# NT-Pro-B Natriuret Pep (0-450) pg/mL Total Protein (6.6-8.7) g/dL Albumin (3.5-5.2) g/dL Globulin (1.3-4.6) g/dL Discharge Plan Discharge Patient Disposition: Placed in Observation Admit Provider: Capo Arrieta Clinical Impression: Asthenia Condition: Stable Prescriptions: No Action furosemide 40 mg tablet 40 mg PO BID RF: 0 multivitamin Tablet 1 tab PO DAILY@0800 RF: 0 gabapentin 600 mg tablet 30 mg PO BEDTIME@2000 RF: 0 simvastatin 40 mg tablet 40 mg PO DAILY@08 RF: 0 ferrous sulfate [iron] 325 mg (65 mg iron) Tablet 325 mg PO BID@799,1999 RF: 0 carvedilol 25 mg Tablet 25 mg PO BID@08,20 RF: 0 amlodipine 10 mg Tablet 10 mg PO DAILY@0800 RF: 0 omeprazole 20 mg Tablet,Delayed Release (Dr/Ec) 20 mg PO DAILY@08 RF: 0 insulin aspart U-100 [Novolog U-100 Insulin aspart] 100 unit/mL Solution See Rx Instructions .ROUTE .COMPLEX Qty: 10 RF: 0 acetaminophen 650 mg Tablet 650 mg PO Q6H PRN (Reason: Pain) RF: 0 Basaglar KwikPen U-100 Insulin 100 unit/mL (3 mL) insulin pen 20 unit SUBCUT BEDTIME Qty: 0 RF: 0 Referrals: Yazmin Boland APN [Primary Care Provider] - Patient Instructions: Opioid Safety Coding Level of Care Code ED Director Financial Analysis for Felice Fwd Exam Comprehensive
--- NOTE | 2021-02-17 19:29 | P.HP_ITS ---
Providers/Chief Complaint Admitting Physician: Capo Arrieta MD Primary Care Provider: Yazmin Boland APN Chief Complaint: FALL/ LEGS NUMB History of Present Illness Monica Mendez is a 85 year old female with pmh of CHF, DM, CKD, NHL, HTN presented to ER with complaints of fall and difficulty with walking. She was recently admitted to retirement. She states was doing ok until her recent fall. reports having ankle weakness. She has been evaluated by Cardiology and Neurology for syncope in the past. She denies recent fevers, chills, leg swelling, cough, or sob. she lives with her Review of Systems General: Reports: 10 or more systems reviewed and unremarkable except in HPI and below Const: Reports: body aches and fatigue; Denies: fever(s) or chills Eyes: Denies: change in vision ENMT: Denies: throat pain Card: Denies: chest pain or palpitations Resp: Denies: dyspnea or productive cough GI: Denies: abdominal pain or nausea Musc: Reports: joint pain and limited range of motion Medications/Allergies Home Medications Medication Instructions Recorded Confirmed Last Taken Type ferrous sulfate [iron] 325 mg PO BID@0800,199904/01/20 02/17/21 02/16/21 History gabapentin 30 mg PO BEDTIME@199904/01/20 02/17/21 02/16/21 History multivitamin 1 tab PO DAILY@0800 04/01/20 02/17/21 02/16/21 History simvastatin 40 mg PO DAILY@04/01/20 02/17/21 02/16/21 History insulin aspart U-100 [Novolog See Rx Instructions .ROUTE 01/08/21 02/17/21 01/10/21 Rx U-100 Insulin aspart] .COMPLEX #10 ml acetaminophen 650 mg PO Q6H PRN 01/10/21 02/17/21 01/10/21 History Basaglar KwikPen U-100 Insulin 20 unit SUBCUT BEDTIME #0 ml 01/15/21 02/17/21 02/16/21 Rx furosemide 40 mg tablet 40 mg PO BID tab 02/04/21 02/17/21 02/16/21 History amlodipine 10 mg PO DAILY@0800 02/17/21 02/17/21 02/16/21 History carvedilol 25 mg PO BID@08,02/17/21 02/17/21 02/16/21 History omeprazole 20 mg PO DAILY@08 02/17/21 02/17/21 02/16/21 History Allergies Allergy/AdvReac Type Severity Reaction Status Date / Time No Known Allergies Allergy Verified 02/03/21 11:35 PFSH Acute PFSH: Medical History (Updated 02/17/21 @ 19:51 by Capo Arrieta MD) Anemia CKD (chronic kidney disease) Diastolic heart failure Hyperlipidemia Hypertension Lumbar spinal stenosis Non Hodgkin's lymphoma Peripheral neuropathy Syncopal episodes Syncope and collapse Type 2 diabetes mellitus Surgical History H/O lymph node biopsy H/O total hysterectomy with bilateral salpingo-oophorectomy (BSO) History of bilateral knee replacement History of bladder suspension procedure Family History Father CAD (coronary artery disease) Brother Cancer Grandmother Diabetes Denies family history of Clotting disorder Dementia Chronic kidney disease (CKD) Suicide Anesthesia complication Bleeding disorder Lung disease Stroke Social History Smoking and tobacco status: never smoked Alcohol intake: never Household members: family Housing: House Marital status: History of recent travel: No Vitals/I&O/Wt Last Vital Signs Temp 97.6 F 02/17/21 13:14 Pulse 72 02/17/21 13:14 Resp 18 02/17/21 13:14 BP 115/59 02/17/21 13:14 Pulse Ox 95 02/17/21 13:14 Weight last 48 hrs Weight 210 lb Physical Exam Const: COMMON NORMALS: no acute distress ORIENTATION/CONSCIOUSNESS: Yes awake Resp: COMMON NORMALS: normal respiratory effort and No use of accessory muscles Cardio: COMMON NORMALS: regular rate and regular rhythm GI: COMMON NORMALS: Normal to inspection, nondistended, normoactive bowel sounds present and Soft to palpation Extremity: LEFT LOWER EXTREMITY: Yes ankle joint OTHER: bilateral ankle joint deformities, with leg length discrepency Data : 02/17/21 14:34 02/17/21 14:34 A&P Assessment and plan (1) Syncope and collapse: etiology unclear hx of CHF diastolic dysfunction on diuretics check phos, mg bilateral ankle xray Status: Acute (2) Weakness of both lower extremities: consult PT check ankle xrays Status: Acute (3) Diastolic heart failure: hold diuretic for now restart home medications including carvedilol Status: Acute (4) [place] (acute kidney injury): CKD on diuretics monitor I/O Status: Acute (5) Type 2 diabetes mellitus: fsbs, ssi Status: Acute Attestations Medical Necessity Statement*: Monica Martinez Vanessa is being changed to inpatient status as stay will now exceed 2 midnights. Ongoing hospital care is necessary for weakness Coding Level of Care Code Acute Director Of Architecture for g Fwd Diagnoses Syncope and collapse R55 Weakness of both lower extremities R29.898 Diastolic heart failure I50.30 [place] (acute kidney injury) N17.9 Type 2 diabetes mellitus E11.9
[2021-02-17 21:00] VITALS: BP 129/70; PULSE 78; RESP 19; TEMP 37.1; O2SAT 95
--- NOTE | 2021-02-17 21:15 | XRR_ITS ---
PROCEDURE INFORMATION: Exam: XR Left Ankle Exam date and time: 02/17/2021 9:36 PM Age: 85 years old Clinical indication: Pain; Ankle; Left; Additional info: Ankle pain TECHNIQUE: Imaging protocol: XR Left ankle. Views: 1 or 2 views. COMPARISON: No relevant prior studies available. FINDINGS: Bones/joints: No acute fractures. Unremarkable ankle mortise alignment. Osteoarthritis changes of the joint. Demineralized bones. Osseous spurring of the calcaneus. Osteophytes between the tarsal bones in the midfoot. Soft tissues: Mild distal soft tissue swelling. XR/XR ankle LT 2V 45000 IMPRESSION: No acute osseous findings.
--- NOTE | 2021-02-17 21:15 | XRR_ITS ---
PROCEDURE INFORMATION: Exam: XR Right Ankle Exam date and time: 02/17/2021 9:36 PM Age: 85 years old Clinical indication: Pain; Ankle; Right; Additional info: Ankle pain TECHNIQUE: Imaging protocol: XR Right ankle. Views: 1 or 2 views. COMPARISON: No relevant prior studies available. FINDINGS: Bones/joints: No fractures. Unremarkable joint alignment. There is severe loss of joint space of the tibiotalar joint with diffuse articular surface remodeling changes. There is bulky marginal osteophytic spurring around the joint. Osseous heel spur. Demineralized bones. Osteophytes between tarsal bones in the midfoot. Soft tissues: Normal. 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
[2021-02-17 21:33] LABS: Creatine Phosphokinase 115 U/L (26-192)
[2021-02-17 21:40] LABS: Glucose Point of Care 234 mg/dL (70-110)
[2021-02-17] MEDS: carvedilol 25 mg Tablet PO (22:05)
[2021-02-18] VITALS (9 sets, daily range): BP systolic 91–164; BP diastolic 50–80; PULSE 64–75; RESP 15–18; TEMP 36.3–37.1; O2SAT 92–97
[2021-02-18 05:54] LABS: Basophils # 0.1 10^3/uL (0.0-0.1); Basophils % 0.8 %; Eosinophils # 0.4 10^3/uL (0.0-0.8); Eosinophils % 3.9 %; Hematocrit 30.8 % (37.0-47.0); Lymphocytes # 2.9 10^3/uL (0.8-4.8); Lymphocytes % 26.9 %; Mean Corpuscular HGB Conc 32.5 g/dL (30.0-36.0); Mean Corpuscular Hemoglobin 29.2 pg (28.0-34.0); Mean Corpuscular Volume 89.8 fL (81-99); Mean Platelet Volume 12.2 fL (7.4-10.4); Monocytes % 8.9 %; Neutrophils # 6.29 10^3/uL (1.8-7.7); Neutrophils % 59.3 %; Nucleated Red Blood Cells % 0 %; Platelet Count 272 10^3/cmm (130-400); Red Blood Count 3.43 10^6/uL (4.1-5.3); Red Cell Distribution Width 14.5 % (12.1-15.1); White Blood Count 10.6 10^3/uL (4.0-10.0)
[2021-02-18 06:16] LABS: Alanine Aminotransferase 10 U/L (0-33); Albumin Level 3.5 g/dL (3.5-5.2); Alkaline Phosphatase 119 IU/L (35-105); Anion Gap 17.2 (5-19); Aspartate Amino Transferase 16 U/L (0-32); Blood Urea Nitrogen 44 mg/dL (8-23); Calcium 9.1 mg/dL (8.5-10.5); Carbon Dioxide 26 mmol/L (22-29); Chloride 101 mmol/L (98-107); Glucose 105 mg/dL (65-115); Osmolality Calculated 304 mOsm/kg (285-295); Potassium 3.2 mmol/L (3.5-5.1); Sodium 141 mmol/L (136-145); Total Bilirubin 0.2 mg/dL (0.15-1.2); Total Protein 6.5 g/dL (6.6-8.7)
[2021-02-18 06:22] LABS: Glucose Point of Care 135 mg/dL (70-110)
[2021-02-18] MEDS: amlodipine 10 mg Tablet PO (08:15)
[2021-02-18] MEDS: carvedilol 25 mg Tablet PO (08:15)
[2021-02-18 11:12] LABS: Glucose Point of Care 282 mg/dL (70-110)
[2021-02-18] MEDS: potassium chloride ER 20 mEq Tablet 40 MEQ PO (11:18)
[2021-02-18 11:20] LABS: Troponin T (5th) Once 67 ng/L (0-10)
--- NOTE | 2021-02-18 16:23 | P.CONIM_ITS ---
Providers/Reason For Consult Consulting Physician/Specialty*: Cardiology Reason for Consult*: Recurrent, multiple pauses on the event monitor Attending Physician: Paul Rodriguez MD Primary Care Provider: Yazmin Boland APN History of Present Illness History of Present Illness Monica Mendez is a 85 year old female past medical history significant for recurrent fall, multiple more than 3-second pauses mostly in the night and few during the daytime while feeling weak documented on the event monitor for which she is going to see Dr. Gusman in the clinic on this coming Sunday ended up in the hospital when she fell last night at 3 AM. Patient is difficult historian however he never fell during the daytime or passed out while sitting or laying down. She told me that she feels weak in the legs as she cannot feel the ground and becomes unsteady. She has denied any passing out completely last night she was aware of the surroundings. She denies chest pain PND orthopnea. She was on carvedilol which was stopped by Dr. Connolly. Review of Systems General: Reports: 10 or more systems reviewed and unremarkable except in HPI and below Const: Reports: body aches and fatigue; Denies: fever(s) or chills Eyes: Denies: change in vision, blurry vision, photophobia or eye redness ENMT: Denies: throat pain, enlarged tonsils, swelling of lips/tongue, ear or mastoid pain or nasal congestion Card: Denies: chest pain, palpitations, irregular heart rhythm, edema, dyspnea on exertion or orthopnea Resp: Denies: dyspnea, productive cough or non-productive cough GI: Denies: abdominal pain, nausea, diarrhea or GI cramping : Denies: flank pain, difficulty voiding, urinary frequency or urinary urgency Musc: Reports: joint pain and limited range of motion; Denies: neck pain, back pain, extremity pain, joint redness or muscle weakness Skin/Breast: Denies: rash, pruritus, erythema, skin pain or skin tenderness Neuro: Denies: headache(s), numbness in extremities, weakness in extremities, sensory changes, difficulty walking, dizziness, confusion or Slurred speech present Psych: Denies: anxiety or depression Endo: Denies: polyuria All/Imm: Denies: urticaria, throat swelling, tongue swelling or acute wheezing Meds/Allergies Home Medications and Allergies Home Medications Medication Instructions Recorded Confirmed Last Taken Type ferrous sulfate [iron] 325 mg PO BID@0800,199904/01/20 02/17/21 02/16/21 History gabapentin 30 mg PO BEDTIME@199904/01/20 02/17/21 02/16/21 History multivitamin 1 tab PO DAILY@0800 04/01/20 02/17/21 02/16/21 History simvastatin 40 mg PO DAILY@04/01/20 02/17/21 02/16/21 History insulin aspart U-100 [Novolog See Rx Instructions .ROUTE 01/08/21 02/17/21 01/10/21 Rx U-100 Insulin aspart] .COMPLEX #10 ml acetaminophen 650 mg PO Q6H PRN 01/10/21 02/17/21 01/10/21 History Basaglar KwikPen U-100 Insulin 20 unit SUBCUT BEDTIME #0 ml 01/15/21 02/17/21 02/16/21 Rx furosemide 40 mg tablet 40 mg PO BID tab 02/04/21 02/17/21 02/16/21 History amlodipine 10 mg PO DAILY@0800 02/17/21 02/17/21 02/16/21 History carvedilol 25 mg PO BID@08,20 02/17/21 02/17/21 02/16/21 History omeprazole 20 mg PO DAILY@02/17/21 02/17/21 02/16/21 History Allergies Allergy/AdvReac Type Severity Reaction Status Date / Time No Known Allergies Allergy Verified 02/03/21 11:35 Current Medications Current Medications Generic Name Dose Route Start Last Admin Trade Name Rockyq PRN Reason Stop Dose Admin Amlodipine Besylate 10 mg 02/18/21 08:00 02/18/21 08:15 Amlodipine 10 Mg Tablet PO 10 mg DAILY@0800 MAYA Administration Carvedilol 25 mg 02/17/21 21:15 02/18/21 08:15 Carvedilol 25 Mg Tablet PO 25 mg BID@,20 MAYA Administration Insulin Aspart 0 unit 02/17/21 21:00 02/18/21 12:29 Insulin Aspart 100 Unit/1 Ml SUBCUT 12 unit WM&BEDTIME MAYA Administration Protocol PFSH Acute PFSH: Medical History (Updated 02/18/21 @ 17:46 by Margot Sheldon MD) Anemia CKD (chronic kidney disease) Diastolic heart failure Hyperlipidemia Hypertension Lumbar spinal stenosis Non Hodgkin's lymphoma Peripheral neuropathy Recurrent falls Syncopal episodes Syncope and collapse Type 2 diabetes mellitus Surgical History H/O lymph node biopsy H/O total hysterectomy with bilateral salpingo-oophorectomy (BSO) History of bilateral knee replacement History of bladder suspension procedure Family History Father CAD (coronary artery disease) Brother Cancer Grandmother Diabetes Denies family history of Clotting disorder Dementia Chronic kidney disease (CKD) Suicide Anesthesia complication Bleeding disorder Lung disease Stroke Social History Smoking and tobacco status: never smoked Alcohol intake: never Household members: family Housing: House Marital status: History of recent travel: No Dietary Habits: Current diet type/program: diabetic Vitals/I&O/Wt Last Vital Signs Temp 97.6 F 02/18/21 11:35 Pulse 64 02/18/21 11:35 Resp 18 02/18/21 11:35 BP 91/61 02/18/21 11:35 Pulse Ox 97 02/18/21 11:35 02/18/21 02/18/21 02/18/21 06:59 14:59 22:59 Intake Total 240 / 240 Output Total 600 / 600 Balance -600 / -600 240 / 240 Weight last 48 hrs Weight 210 lb Physical Exam Narrative: EXAM NARRATIVE: GENERAL: Patient is alert, awake and oriented x3. Hard of hearing. NECK: No jugular vein distension. HEENT: No cyanosis. No icterus. No pallor. HEART: Regular S1 and S2. No murmur, rub or gallop. LUNGS: Clear to auscultate bilaterally. ABDOMEN: Soft, nontender and nondistended. Positive bowel sounds. No guarding, rebound or tenderness. CENTRAL NERVOUS SYSTEM: Grossly nonfocal. EXTREMITIES: Lower extremities without edema bilaterally. A&P Assessment and plan (1) Recurrent falls: This point appear to be most likely due to unsteady gait there is no sign ificant pause noted overnight. Beta-naomi was discontinued in the near past. Could be proprioception defect possible however patient is scheduled to see Dr. Gusman for documented recurrent pauses mostly in the night but few during the daytime. It is possible she may well end up getting a pacemaker for daytime pauses. I would therefore let patient go home with instruction to be careful while walking and walk with a walker. She is advised to keep her follow-up with Dr. Gusman. Status: Acute (2) Sinus pause: Coreg was discontinued continue to monitor. Patient is going to see Dr. Gusman for daytime pauses to be assessed for permanent pacemaker placement. Status: Acute Consult Attestations Medical Necessity Statement: As per medicine. 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
[2021-02-18 17:14] LABS: Glucose Point of Care 257 mg/dL (70-110)
--- NOTE | 2021-02-18 17:36 | PM.PN ---
Subjective Subjective: Interval history: Monica is well-known to me, I took care of her initially when she fell, and she had trauma to her back resulting in bilateral extremity weakness, she tells me that she was at the longterm and she got better and she left, she followed up with a contact center rep and she was found to have sinus pauses on Holter monitor, she tells me that Dr. Connolly was getting Dr. Dr. Gusman about possible pacemaker placement, she tells me that last night at about 3 AM, she did get up out of bed she went to the bathroom, and suddenly her right ankle gave out on her and she fell to the ground, she denies losing consciousness, but this is a second time she is fallen without any good reason, she does not understand why her right ankle gave out she does have osteoarthritis, denies chest pain, no palpitations, no seizure-like symptoms, no strokelike symptoms, her witnessed the fall, Vitals/I&O/Wt Last Vital Signs Temp 98.8 F 02/18/21 16:00 Pulse 71 02/18/21 16:00 Resp 16 02/18/21 16:00 BP 164/80 02/18/21 16:00 Pulse Ox 92 02/18/21 16:00 02/18/21 02/18/21 02/18/21 06:59 14:59 22:59 Intake Total 240 / 240 Output Total 600 / 600 Balance -600 / -600 240 / 240 Weight last 48 hrs Weight 95.254 kg Physical Exam Const: COMMON NORMALS: no acute distress and patient oriented x3 Resp: COMMON NORMALS: normal respiratory effort, No retractions, No use of accessory muscles and clear to auscultation bilaterally AUSCULTATION: clear to auscultation bilaterally Cardio: COMMON NORMALS: regular rate, regular rhythm, S1 normal heart sound present and S2 normal heart sound present RATE: regular rate RHYTHM: regular rhythm HEART SOUNDS: S1 normal heart sound present and S2 normal heart sound present GI: COMMON NORMALS: Normal to inspection, nondistended, normoactive bowel sounds present, Soft to palpation, non-tender, No hepatosplenomegaly present, no masses and no bruits PALPATION: Yes Soft to palpation and Yes No hepatosplenomegaly present Extremity: COMMON NORMALS: no calf tenderness and no pedal edema OTHER: Right lower ankle, no pain with range of motion no swelling Neuro: COMMON NORMALS: patient oriented x3, CN's II-XII intact bilaterally and moves all extremities Psych: COMMON NORMALS: mental status grossly normal Data : 02/18/21 05:07 02/18/21 05:07 A&P Assessment and plan (1) Syncope and collapse: Likely secondary to sinus pauses, seen on Holter monitor hx of CHF diastolic dysfunction Hold Coreg Does not look fluid overloaded hold diuretics We will consult cardiology team bilateral ankle xray no acute fracture, proximal left tibia does have a healing fracture Status: Acute (2) Weakness of both lower extremities: consult PT Proximal left tibia healing fracture Status: Acute (3) Diastolic heart failure: hold diuretic for now restart home medications including carvedilol Status: Acute (4) [place] (acute kidney injury): CKD on diuretics, on hold monitor I/O Status: Acute (5) Type 2 diabetes mellitus: Continue Lantus 10 units at bedtime, sliding scale Status: Acute Attestations Medical Necessity Statement*: Patient requires hospitalization for sinus pauses, syncope, ankle pain, weakness Coding Level of Care Code Acute 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
[2021-02-18] MEDS: enoxaparin 30 mg/0.3 mL Syringe SUBCUT (20:44)
[2021-02-18] MEDS: ferrous sulfate EC 325 mg Tablet PO (20:45)
[2021-02-18] MEDS: gabapentin 300 mg Capsule PO (20:45)
[2021-02-18 21:10] LABS: Glucose Point of Care 147 mg/dL (70-110)
[2021-02-19] VITALS (7 sets, daily range): BP systolic 115–136; BP diastolic 61–76; PULSE 67–77; RESP 16–18; TEMP 36.5–37.2; O2SAT 97–100
--- NOTE | 2021-02-19 06:01 | PC.NURSE ---
this nurse spoke with [id number] about pt wanting to leave earlier in the day.. she was concerned about trying to convince pt to stay for the care she needed since no one was available to take care of her at home. [id number], Kinga, recommended having a juvenal come and speak with the pt since pt was very involved in her jew. Kinga felt this would relieve some of her anxiety about staying in the hospital. Kinga informed this nurse that pt is a very strong in her Faith sona
[2021-02-19 06:30] LABS: Glucose Point of Care 112 mg/dL (70-110)
[2021-02-19 07:48] LABS: Basophils # 0.1 10^3/uL (0.0-0.1); Basophils % 0.7 %; Eosinophils # 0.4 10^3/uL (0.0-0.8); Eosinophils % 4.4 %; Hematocrit 30.3 % (37.0-47.0); Hemoglobin 9.7 g/dL (11.5-15.3); Lymphocytes # 2.8 10^3/uL (0.8-4.8); Lymphocytes % 27.8 %; Mean Corpuscular Hemoglobin 29.1 pg (28.0-34.0); Monocytes # 0.8 10^3/uL (0.2-0.9); Monocytes % 8.3 %; Neutrophils # 5.84 10^3/uL (1.8-7.7); Neutrophils % 58.5 %; Nucleated Red Blood Cells % 0 %; Platelet Count 272 10^3/cmm (130-400); Red Blood Count 3.33 10^6/uL (4.1-5.3); Red Cell Distribution Width 14.8 % (12.1-15.1)
[2021-02-19 08:12] LABS: Alanine Aminotransferase 10 U/L (0-33); Albumin Level 3.5 g/dL (3.5-5.2); Alkaline Phosphatase 118 IU/L (35-105); Anion Gap 17.4 (5-19); Aspartate Amino Transferase 15 U/L (0-32); Blood Urea Nitrogen 45 mg/dL (8-23); Carbon Dioxide 24 mmol/L (22-29); Chloride 99 mmol/L (98-107); Glucose 122 mg/dL (65-115); Osmolality Calculated 297 mOsm/kg (285-295); Potassium 3.4 mmol/L (3.5-5.1); Sodium 137 mmol/L (136-145); Total Bilirubin 0.3 mg/dL (0.15-1.2); Total Protein 6.5 g/dL (6.6-8.7)
[2021-02-19] MEDS: pantoprazole DR 40 mg Tablet PO (08:48)
[2021-02-19] MEDS: amlodipine 10 mg Tablet PO (08:48)
[2021-02-19] MEDS: atorvastatin 40 mg Tablet 20 MG PO (08:49)
[2021-02-19 11:41] LABS: Glucose Point of Care 238 mg/dL (70-110)
[2021-02-19] MEDS: ferrous sulfate EC 325 mg Tablet PO (12:35)
--- NOTE | 2021-02-19 12:39 | PM.DCS ---
Discharge Providers Date of Admission: 02/17/21 17:49 Date of Discharge: February 19, 2021 Attending Provider at Admission: Capo Arrieta MD Attending Provider at Discharge: Paul Rodriguez MD Primary Care Provider: Yazmin Boland APN Diagnoses at Discharge Discharge Diagnosis (1) Recurrent falls: Status: Acute (2) Sinus pause: Status: Acute Reason for Visit Reason for Visit: FALL/ LEGS NUMB Hospital Course Hospital Course This is a 85-year-old history of sinus pauses on event monitor, who presents to [facility] due to a fall at 3 AM when getting up to use the bathroom For fall, cardiology was consulted, who felt that there is no urgent need for pacemaker placement, patient did have sinus bradycardia, so Coreg was stopped, follow with Dr. Gusman as outpatient. She was advised if she were to have the lightheadedness, dizziness, syncopal episodes, to the emergency room. Coreg has been stopped. For her right ankle pain, she tells me that her right ankle frequently gives out on her, x-ray did not show any acute fracture, she likely has osteoarthritis, and unsteadiness, she was advised to ambulate with care. She does have a healing fracture of the proximal left fibula, which she is unaware of, no pain. She was recently discharged from senior living in [facility], has in-home services, discharged home Physical Exam Const: COMMON NORMALS: no acute distress and patient oriented x3 Resp: COMMON NORMALS: normal respiratory effort, No retractions, No use of accessory muscles and clear to auscultation bilaterally AUSCULTATION: clear to auscultation bilaterally Cardio: COMMON NORMALS: regular rate, regular rhythm, S1 normal heart sound present and S2 normal heart sound present RATE: regular rate RHYTHM: regular rhythm HEART SOUNDS: S1 normal heart sound present and S2 normal heart sound present GI: COMMON NORMALS: Normal to inspection, nondistended, normoactive bowel sounds present, Soft to palpation, non-tender and No hepatosplenomegaly present PALPATION: Yes Soft to palpation and Yes No hepatosplenomegaly present Extremity: COMMON NORMALS: no pedal edema Neuro: COMMON NORMALS: patient oriented x3 Psych: COMMON NORMALS: mental status grossly normal Discharge Data Data Completed and Pending: Completed Studies During Hospitalization Category Date Time Status XR ankle LT 2V 73 600 Routine Exams 02/17/21 21:15 Completed XR ankle RT 2V 73 600 Routine Exams 02/17/21 21:15 Completed XR chest 1V sandra ble [id number] Urgent Exams 02/17/21 13:54 Completed XR knee LT 3V* 73 562 Stat Exams 02/17/21 14:17 Completed XR knee RT 3V* 73 562 Stat Exams 02/17/21 14:17 Completed XR tibia fibula L T 2V [id number] Stat Exams 02/17/21 14:17 Completed Pending at discharge Category Date Time Status Complete Blood Co unt w/Auto AM LABS Lab 02/20/21 04:00 Ordered Comprehensive Met abolic Panel AM LA BS Lab 02/20/21 04:00 Ordered Urinalysis Stat Lab 02/17/21 13:54 Uncollected Labs from last 24 hours 02/19/21 02/19/21 02/19/21 11:37 07:29 07:29 WBC 10.0 RBC 3.33 L Hgb 9.7 L Hct 30.3 L MCV 91.0 MCH 29.1 MCHC 32.0 RDW 14.8 Plt Count 272 MPV 12.0 H Neut % (Auto) 58.5 Lymph % (Auto) 27.8 [place] % (Auto) 8.3 Eos % (Auto) 4.4 Baso % (Auto) 0.7 Neut # (Auto) 5.84 Lymph # (Auto) 2.8 [place] # (Auto) 0.8 Eos # (Auto) 0.4 Baso # (Auto) 0.1 Nucleated RBC % (a uto) 0 Nucleated RBCs # 0.0 Sodium 137 Potassium 3.4 L Chloride 99 Carbon Dioxide 24 Anion Gap 17.4 BUN 45 H Creatinine 3.2 H GFR Calculation Not Reportable Glucose 122 H POC Glucose 238 H Calculated Osmolal ity 297 H Calcium 9.0 Total Bilirubin 0.3 AST 15 ALT 10 Alkaline Phosphata se 118 H Total Protein 6.5 L Albumin 3.5 Globulin 3.0 02/19/21 02/18/21 02/18/21 06:20 21:03 17:10 WBC RBC Hgb Hct MCV MCH MCHC RDW Plt Count MPV Neut % (Auto) Lymph % (Auto) [place] % (Auto) Eos % (Auto) Baso % (Auto) Neut # (Auto) Lymph # (Auto) [place] # (Auto) Eos # (Auto) Baso # (Auto) Nucleated RBC % (a uto) Nucleated RBCs # Sodium Potassium Chloride Carbon Dioxide Anion Gap BUN Creatinine GFR Calculation Glucose POC Glucose 112 H 147 H 257 H Calculated Osmolal ity Calcium Total Bilirubin AST ALT Alkaline Phosphata se Total Protein Albumin Globulin Vitals: Last Vital Signs Temp 98.2 F 02/19/21 11:47 Pulse 77 02/19/21 11:47 Resp 18 02/19/21 11:47 BP 124/71 02/19/21 11:47 Pulse Ox 97 02/19/21 11:47 Discharge Plan Discharge Patient Disposition: Home Condition: Stable Prescriptions: Continued furosemide 40 mg tablet 40 mg PO BID RF: 0 multivitamin Tablet 1 tab PO DAILY@0800 RF: 0 gabapentin 600 mg tablet 30 mg PO BEDTIME@1999 RF: 0 simvastatin 40 mg tablet 40 mg PO DAILY@08 RF: 0 ferrous sulfate [iron] 325 mg (65 mg iron) Tablet 325 mg PO BID@0800,1999 RF: 0 amlodipine 10 mg Tablet 10 mg PO DAILY@0800 RF: 0 omeprazole 20 mg Tablet,Delayed Release (Dr/Ec) 20 mg PO DAILY@08 RF: 0 insulin aspart U-100 [Novolog U-100 Insulin aspart] 100 unit/mL Solution See Rx Instructions .ROUTE .COMPLEX Qty: 10 RF: 0 acetaminophen 650 mg Tablet 650 mg PO Q6H PRN (Reason: Pain) RF: 0 Basaglar KwikPen U-100 Insulin 100 unit/mL (3 mL) insulin pen 20 unit SUBCUT BEDTIME Qty: 0 RF: 0 Discontinued carvedilol 25 mg Tablet 25 mg PO BID@08,20 RF: 0 Discharge Orders: Discharge Order (Routine); Ordered 02/19/21 Ordered By: Paul Rodriguez Referrals: Yazmin Boland APN [Primary Care Provider] - 7-10 days (Please call Yazmin Boland's office on Sunday and schedule an appointment to be seen within one week if possible.) Bashir Gusman MD [Physician] - 4-7 days ([facility] will call you Sunday to set up an appointment for you to see Dr. Gusman.) Discharge Diet: Diabetic Discharge Activity: Resume usual activity Patient Instructions: Opioid Safety Activity Restrictions/Additional Instructions: -If you have recurrent lightheadedness, dizziness, passing out spells go to the go to the emergency room -Follow-up with Dr. Gusman in 1 week Discharge Attestations Time Spent in Discharge Care*: less than 30 min Status at Discharge: Cognitive status at discharge: cognitively intact, Behavioral status at discharge: cooperative, Quality Metrics Clinical Quality Measures During this hospital stay, did patient experience: None Coding Level of Care Code Acute Chg [facility] note Diagnoses Recurrent falls R29.6 Sinus pause I45.5
== END 2021-02-19 17:10 | disposition home health service (06) | DRG 309 ==
LOC: ER 17:48 → MEDSURG 18:48
PROVIDERS: Admitting Provider Internal Medicine; Emergency Provider Family Medicine; PCP Nurse Practitioner; Visit Provider Family Medicine
DX: I45.5 Other specified heart block (principal); I13.0 Hypertensive heart and chronic kidney disease with heart failure and stage 1 through stage 4 chronic kidney disease, or unspecified chronic kidney disease; I50.30 Unspecified diastolic (congestive) heart failure; N17.9 Acute kidney failure, unspecified; E11.22 Type 2 diabetes mellitus with diabetic chronic kidney disease; N18.9 Chronic kidney disease, unspecified; R29.6 Repeated falls; D63.1 Anemia in chronic kidney disease; E78.5 Hyperlipidemia, unspecified; M48.061 Spinal stenosis, lumbar region without neurogenic claudication; Z85.72 Personal history of non-Hodgkin lymphomas; E11.42 Type 2 diabetes mellitus with diabetic polyneuropathy; Z90.710 Acquired absence of both cervix and uterus; Z96.653 Presence of artificial knee joint, bilateral; R55 Syncope and collapse; R29.898 Other symptoms and signs involving the musculoskeletal system; M19.071 Primary osteoarthritis, right ankle and foot; S82.102D Unspecified fracture of upper end of left tibia, subsequent encounter for closed fracture with routine healing; W19.XXXD Unspecified fall, subsequent encounter
CPT/HCPCS: 36415; 36416; 71045; 73562; 73590; 73600; 80053; 82550; 82962; 83605; 83735; 83880; 84100; 84484; 85025; 93005; 96372; 97161; 97165; 97530; 99285; J1650; J1815

== ENCOUNTER → 2021-03-31 11:19 | Outpatient (BNVA) | payer MEDICARE, OTHER, SELFPAY | PROVIDERS: PCP Nurse Practitioner; Visit Provider Internal Medicine Cardiovascular Disease | DX: Z01.818 Encounter for other preprocedural examination (principal); J96.21 Acute and chronic respiratory failure with hypoxia; Z20.822 Contact with and (suspected) exposure to COVID-19; C85.90 Non-Hodgkin lymphoma, unspecified, unspecified site; I35.8 Other nonrheumatic aortic valve disorders; R00.1 Bradycardia, unspecified; Z01.812 Encounter for preprocedural laboratory examination; E78.2 Mixed hyperlipidemia; I50.30 Unspecified diastolic (congestive) heart failure | CPT/HCPCS: 80048; 83880; 85025; 85610; 86850; 86900; 87635 ==

== ENCOUNTER → 2021-04-04 13:21 | Outpatient (BNVA) | payer MEDICARE, OTHER, SELFPAY | PROVIDERS: PCP Nurse Practitioner; Visit Provider Internal Medicine | DX: D64.9 Anemia, unspecified (principal); R00.1 Bradycardia, unspecified; I45.5 Other specified heart block | CPT/HCPCS: 85025 ==

== ENCOUNTER 2021-04-05 14:33 | Observation (INO) | payer MEDICARE, OTHER, SELFPAY ==
[2021-04-05] VITALS (9 sets, daily range): BP systolic 106–156; BP diastolic 68–81; PULSE 86–98; RESP 16–18; TEMP 36.6–37.6; O2SAT 92–99; BMI 33.2
--- NOTE | 2021-04-05 07:07 | PM.HP ---
Providers/Chief Complaint Admitting Physician: SHANNAN NELSON Primary Care Provider: Yazmin Boland APN Chief Complaint: Pacemaker Insertion History of Present Illness Monica Mendze is a 85 year old female, with a history of hypertension, dyslipidemia, chronic kidney disease, presents with recurrent episodes of near syncope/syncope. She was found to have episodes of bradycardia and prolonged pauses on the monitor. She also is known to have diastolic heart failure. She had an event monitor which revealed a episodes of bradycardia with prolonged pauses of more than 3 seconds. In view of her presenting symptoms and the abnormal EGD findings, in order to further manage her condition a permanent pacemaker implantation was requested. He had a recent C. difficile l infection. She was treated properly. Review of Systems Narrative: CONSTITUTIONAL: No fever or chills. EYES: No blurring of vision or other visual disturbances lately. ENT: No hoarseness of voice, auditory disturbances or sore throat. CARDIOVASCULAR: As mentioned above. RESPIRATORY: No significant cough. GASTROINTESTINAL: History of C. difficile GENITOURINARY: No dysuria or hematuria. INTEGUMENTARY: No skin rashes or history of skin cancer. NEURO: Episodes of near syncope/syncope PSYCHIATRIC: No history of psychosis or major depression. HEMATOLOGIC: No bleeding disorders or significant anemia. ENDOCRINE: No history of polyuria or polydipsia. MUSCULOSKELETAL: No recent joint pain or swelling. ALLERGY/IMMUNOLOGY: As mentioned above. Medications/Allergies Home Medications Medication Instructions Recorded Confirmed Last Taken Type ferrous sulfate [iron] 325 mg PO BID@0800,199904/01/20 04/05/21 04/04/21 20:00 History gabapentin 300 mg PO BEDTIME@199904/01/20 04/05/21 04/04/21 20:00 History multivitamin 1 tab PO DAILY@0800 04/01/20 04/05/21 04/04/21 08:00 History simvastatin 40 mg PO DAILY@04/01/20 04/05/21 04/04/21 08:00 History insulin aspart U-100 [Novolog See Rx Instructions .ROUTE 01/08/21 04/05/21 01/10/21 Rx U-100 Insulin aspart] .COMPLEX #10 ml acetaminophen 650 mg PO Q6H PRN 01/10/21 04/05/21 01/10/21 History Basaglar KwikPen U-100 Insulin 20 unit SUBCUT BEDTIME #0 ml 01/15/21 04/05/21 04/04/21 22:00 Rx furosemide 40 mg tablet 40 mg PO BID tab 02/04/21 04/05/21 04/04/21 20:00 History amlodipine 10 mg PO DAILY@0800 02/17/21 04/05/21 04/04/21 08:00 History omeprazole 20 mg PO DAILY@08 02/17/21 04/05/21 04/04/21 08:00 History Allergies Allergy/AdvReac Type Severity Reaction Status Date / Time No Known Allergies Allergy Verified 04/05/21 07:09 PFSH Acute PFSH: Medical History Anemia CKD (chronic kidney disease) Diastolic heart failure Hyperlipidemia Hypertension Lumbar spinal stenosis Non Hodgkin's lymphoma Peripheral neuropathy Recurrent falls Syncopal episodes Syncope and collapse Type 2 diabetes mellitus Surgical History H/O lymph node biopsy H/O total hysterectomy with bilateral salpingo-oophorectomy (BSO) History of bilateral knee replacement History of bladder suspension procedure Family History Father CAD (coronary artery disease) Brother Cancer Grandmother Diabetes Denies family history of Clotting disorder Dementia Chronic kidney disease (CKD) Suicide Anesthesia complication Bleeding disorder Lung disease Stroke Social History Smoking and tobacco status: never smoked Alcohol intake: never Household members: family Housing: House Marital status: History of recent travel: No Vitals/I&O/Wt Blood pressure 106/70 ;respiratory rate of 16/min. She is afebrile. Heart rate of 90 bpm. Physical Exam Narrative: EXAM NARRATIVE: GENERAL: The patient is alert and oriented times three. Not in any acute distress. HEENT: No significant pallor, icterus or lymphadenopathy. The pupils are reactant to light. Oral cavity: There are no mucous membrane lesions. Funduscopic examination: The fundus is not visualized NECK: Trachea appears to be central. No masses noted. No JVD or thyromegaly appreciated. No carotid bruit. RESPIRATORY: Chest is symmetrical. No intercostals muscle retraction or any accessory muscle activation. There is no chest wall tenderness. Breath sounds are heard bilaterally. No rales or rhonchi heard. No evidence of any consolidation. BREASTS: Deferred. HEART: The PMI is in the 5th left intercostals space just inside the midclavicular line. No palpable precordial events. S1 and S2 are normal. Short systolic murmur at the base of the heart. No diastolic murmurs. No S3 or S4 heard. No pericardial rub or any click heard. ABDOMEN: No vessel pulsations or distention. No tenderness. No organomegaly appreciated. No abdominal bruit. Bowel sounds are normally heard. : Deferred. RECTAL: Deferred. LYMPHATIC: No lymphadenopathy noted in the neck or groin. EXTREMITIES: Trace edema with no cyanosis. MUSCULOSKELETAL: No acute joint deformities or swelling SKIN: There are no significant scars or skin rash noted. NEUROPSYCHIATRIC: The patient is alert and oriented x3. Appears to be in a good mood. The higher functions are grossly within normal limits. No tremors or rigidity noted. Data Other Labs: Her sodium was 141 potassium three-point the sodium was 141, potassium 3.8. BUN of 37 date of 3.1. The glucose was 305. CBC showed hemoglobin of 11.2 hematocrit 34.9 platelet count of 330K, WBC count of 9.3 thousand CXR: My impression: The chest x-ray showed moderate cardiomegaly. No acute lung infiltrates. A&P Assessment and plan (1) Symptomatic bradycardia: In view of the patient symptomatic bradycardia, near syncope/syncopal episodes, prolonged pauses on the event monitor, for further management of her condition, a permanent pacemaker implant will be appropriate. This was discussed with the patient and her family in detail. The risk of bleeding, hematoma, vascular injury, pneumothorax, infection, renal failure and other concomitant complications were explained in detail. The patient understood this well and consented to proceed. In view of the patient's diabetes and chronic knee disease, she carries a high risk for infection and also acute kidney injury with the dye. Patient and the family understood this well and consented to proceed. Status: Acute (2) Diastolic heart failure: Patient is clinically compensated. We will continue on the current medications. Status: Acute Qualifiers: Heart failure chronicity: acute Qualified Code(s): I50.31 - Acute diastolic (congestive) heart failure (3) Type 2 diabetes mellitus: Her blood sugar has been staying out of control lately. We will continue the hydration. Status: Acute Qualifiers: Diabetes mellitus complication status: with hyperglycemia Diabetes mellitus group home insulin use: with intermission coordinator use Qualified Code(s): E11.65 - Type 2 diabetes mellitus with hyperglycemia; Z79.4 - termite renewal inspector (current) use of insulin (4) CKD (chronic kidney disease): Patient has stage IV kidney disease. She was recommended for dialysis in the past but the patient refused. Status: Acute Qualifiers: Chronic kidney disease stage: stage 4 (severe) Qualified Code(s): N18.4 - Chronic kidney disease, stage 4 (severe) Additional A&P Information We will go ahead and schedule this for patient for the permanent pacemaker mentation today. She may benefit from a dual-chamber permanent pacemaker for symptom relief and AV synchrony. Attestations Medical Necessity Statement*: Patient requires at least 1 midnight stay for further management of her condition. She will be admitted to the hospital for IV antibiotics. Coding Level of Care Code Acute Surgical Forceps Fabricator for Felice Jimenez History Detailed Exam Detailed Medical Decision Making Moderate Complexity Diagnoses Symptomatic bradycardia R00.1 Diastolic heart failure I50.31 Heart failure chronicity: acute Type 2 diabetes mellitus E11.65; Z79.4 Diabetes mellitus complication status: with hyperglycemia Diabetes mellitus group home insulin use: with group home use CKD (chronic kidney disease) N18.4 Chronic kidney disease stage: stage 4 (severe)
--- NOTE | 2021-04-05 07:24 | W.PM.OPSUD ---
Surgery/Procedure H&P Update DATE OF PROCEDURE: April 05, 2021 DATE H&P PERFORMED: 04/05/21 H&P UPDATE INFORMATION: I have reviewed H&P completed within last 30 days and I have examined patient prior to procedure PREOP DIAGNOSIS: symptomatic bradycardia/sinus mir dysfunction PLANNED PROCEDURE: Operation Date: 04/05/21 07:00 Proposed Procedures p Pacemaker Insertion(Not Applicable) - Bashir Gusman MD PATIENT REASSESSED PRIOR TO SEDATION, WITH NO CHANGE NOTED: Yes PHYSICAL EXAM: alert, clear to auscultation bilaterally and regular rate & rhythm AIRWAY EVAL/ANESTHESIA PLAN: normal airway, see other exam findings, ASA IV, Monitored Anesthesia, Local Anesthesia, Risks, benefits & alternatives of sedation and/or procedure discussed and Patient agrees to continue as planned
--- NOTE | 2021-04-05 07:30 | PC.NURSE ---
The patient was brought back to [facility] room #3 due to a STEMI in the ER. Patient had no sedation and will be taken back as soon as the STEMI procedure is completed.
[2021-04-05 07:38] LABS: Glucose Point of Care 122 mg/dL (70-110)
--- NOTE | 2021-04-05 08:58 | PC.NURSE ---
PER DR NELSON, THE PATIENT'S PROCEDURE WILL BE POSTPONED UNTIL 1200. THE PATIENT AND HER SPOUSE, DIAMANTE, WERE BOTH NOTIFIED AND VERBALIZED THEIR UNDERSTANDING.
--- NOTE | 2021-04-05 11:46 | PC.NURSE ---
PATIENT TAKEN BACK TO THE ANCHORER VIA COT.
--- NOTE | 2021-04-05 15:02 | XR_ITS ---
WS: [id number] PORTABLE CHEST HISTORY: POST PACEMAKER COMPARISON: 02/17/2021 LEFT subclavian dual lead cardiac pacer. Pacer has been placed since the prior study. No complication s. Lung volumes are decreased. No consolidations or pneumothorax. No pleural effusion or pneumothorax. Cardiac size: Mildly enlarged cardiac silhouette. Mediastinum/Aorta: Normal mediastinum. Osteopenia and degenerative changes at the shoulder joints. XR/XR chest 1V portable [id number] IMPRESSION: Uncomplicated placement of a LEFT subclavian pacer.
--- NOTE | 2021-04-05 15:04 | P.OP_ITS ---
Operative Report Date of procedure: April 05, 2021 Procedure: LOCATION: Outpatient/cardiac catheterization lab PREOPERATIVE DIAGNOSES: Symptomatic bradycardia/syncope. POSTOPERATIVE DIAGNOSES: Same. COMPLICATIONS: None. ESTIMATED BLOOD LOSS: Around 5 milliliters. BRIEF HISTORY: This is an 85-year-old white female with history of atheroscler otic heart disease, high blood pressure, dyslipidemia, chronic kidney disease, presents with recurrent episodes of near syncope/syncope. She was found to have sinus bradycardia with prolonged pauses on the event monitor telemetry. For further management of her condition, a permanent pacemaker implantation was requested. A dual-chamber permanent pacemaker implantation was recommended for further management of her condition-for AV synchrony and symptom relief. The procedure was explained to the patient in detail with the risks and benefits. The risks of bleeding, hematoma, vascular injury, infection, pneumothorax, myocardial perforation and other concomitant complications were explained in detail, which the patient understood well and consented to proceed. PROCEDURE DESCRIPTION: The patient was brought to the Cardiac Catheterization Lab. The left and the right side of the neck and the subclavian area were cleaned and draped in a sterile fashion. 1% Xylocaine was used as the local anesthetic agent. A left subclavian venous access was obtained using a micropuncture needle system. The left subclavian vein was accessed with a micropuncture needle system. A two-inch long incision was made 2.0 centimeters below the midclavicular region. By sharp and blunt dissection, a pacemaker pocket was made. A second venous access was obtained using another micropuncture needle system. Over the first guidewire, a 7-Albanian venous sheath with dilator was advanced. The venous dilator and the guidewire were taken out. A screw-in ventricular lead was advanced through the venous sheath and was positioned towards the right ventricle. Under fluoroscopy guidance, the ventricular lead was positioned toward the right ventricular apex. Good pacing and sensing thresholds were obtained. The lead was secured to the endocardium by advancing the helix. The stability of the lead was tested by gentle twisting movements and also by asking the patient to take some deep breaths and cough. The venous sheath was peeled off, at this time. The lead was secured to the pectoralis fascia, by suturing with 1-0 Surgilon. Over the second guidewire, another 7- Albanian venous sheath with dilator was advanced. The dilator and the guidewire were taken out. Under fluoroscopy guidance, an atrial lead (Stellaristronic), was advanced and positioned toward the right atrium. The lead was positioned in the right atrial appendage. Good pacing and sensing thresholds were obtained. The lead was secured to the endocardium by advancing the helix. Stability of the lead was tested by gentle twisting movements and also by asking the patient to take some deep breaths and cough. The venous sheath was peeled off, at this time. The lead was secured to the pectoralis fascia by suturing with 0-Surgilon. The pacemaker pocket was copiously irrigated with vancomycin solution. Complete hemostasis was achieved. Sponge counts were confirmed. The leads were attached to a Medtronic generator. The leads were positioned behind the generator and the generator was placed in the antibiotic sleeve -TYRX and was attached to the pectoralis fascia by suturing with 0-Surgilon. The pocket was closed in layers. Skin was approximated using 4-0 Vicryl. IMPLANTED DEVICES: ATRIAL LEAD: Model number: 5076/52 Serial number: [id number] Make: Medtronic VENTRICULAR LEAD: Model number: 5076/58 Serial number: [id number] Make: Medtronic GENERATOR Brand: Irvin XT DR MRI Oralia Model number: [id number] Serial number: [id number] Make: Medtronic TYRX Ref # [id number] Lot # [id number] Make: Medtronic IMPLANTATION DATA: With the pacing system analyzer, the R wave sensing was 13.1 millivolts with a lead impedance of 765 and a pacing threshold was 0.3 volts at 0.5 milliseconds. In the atrium, the sensing was 3.1 millivolts with a lead impedance of 612 ohms and a pacing threshold was 0.5 volts at 0.5 milliseconds. Through the device, the R-wave sensing was 15.4 millivolts with a lead impedance of 608 and a pacing threshold was 0.5 volts at 0.4 milliseconds. The atrial sensing was 3.5 millivolts with a lead impedance of 513 ohms and a pacing threshold of 1.0 volts at 0.4 milliseconds. The pacemaker was set for AAIR/DDDR mode with upper rate of 130 and a lower rate of 60. A pressure dressing was applied over the pacemaker site. The patient was transferred to the Medical Floor in stable condition. A chest x-ray was ordered to confirm the lead position and also to rule out any pneumothorax.
[2021-04-05 16:43] LABS: Glucose Point of Care 139 mg/dL (70-110)
[2021-04-05] MEDS: acetaminophen 325 mg Tablet 650 MG PO (17:19)
[2021-04-05 20:27] LABS: Glucose Point of Care 210 mg/dL (70-110)
[2021-04-05] MEDS: ferrous sulfate EC 325 mg Tablet PO (21:42)
[2021-04-05] MEDS: insulin glargine 100 units/1 mL 20 UNIT SUBCUT (21:43)
[2021-04-05] MEDS: gabapentin 300 mg Capsule PO (21:43)
[2021-04-05] MEDS: sodium chloride 0.9% 1,000 ML 75 ML IV (21:44)
[2021-04-06 04:00] VITALS: BP 137/75; PULSE 90; RESP 18; TEMP 37.2; O2SAT 93
[2021-04-06 06:00] VITALS: PULSE 109
--- NOTE | 2021-04-06 06:00 | ECG_ITS ---
[facility] ED Test Date: 2021-04-06 Pat Name: Monica Mendez Department: Room: 255 Gender: Female Government Auditor: : [id number] Requested By: Bashir Gusman Order Number: [id number] Ilana MD: Nickie Daniel M.D. Measurements Intervals [place] Rate: 90 P: 63 DC: 225 QRS: -55 QRSD: 110 T: 64 QT: 394 QTc: 483 Interpretive Statements SINUS RHYTHM WITH FIRST DEGREE AV BLOCK LEFT ANTERIOR FASCICULAR BLOCK [QRS AXIS <= -45, QR IN I, RS IN II] POSSIBLE ANTERIOR MYOCARDIAL INFARCTION [30 ms Q WAVE IN V3/V4, OR R < 0.2 mV IN V4], OF INDETERMINATE AGE Compared to ECG 02/17/2021 17:49:39 Incomplete right bundle-branch block no longer present Myocardial infarct finding still present Electronically Signed On 04-11-2021 22:37:09 CDT by Nickie Daniel M.D. [email or web address]
[2021-04-06 06:31] LABS: Glucose Point of Care 164 mg/dL (70-110)
[2021-04-06 08:13] VITALS: BP 175/80; PULSE 70; RESP 16; TEMP 37.1
[2021-04-06] MEDS: atorvastatin 40 mg Tablet 20 MG PO (09:40)
[2021-04-06] MEDS: amlodipine 10 mg Tablet PO (09:40)
[2021-04-06] MEDS: pantoprazole DR 40 mg Tablet PO (09:41)
[2021-04-06] MEDS: FUROsemide 40 mg Tablet PO (09:41)
[2021-04-06] MEDS: multivitamin therapeutic Tablet 1 TAB PO (09:41)
[2021-04-06] MEDS: ferrous sulfate EC 325 mg Tablet PO (09:49)
--- NOTE | 2021-04-06 10:15 | PC.CHAP ---
Pastoral Care Encounter/Spiritual Assessment Type of Contact [] Declined generation engineering technologist visit [] Patient/Family/Request visit [] Outpatient visit [] Follow-up visit [] Physician referral [] Code/Alert [x] Routine visit [] Staff referral [] Actively dying [] Patient sleeping [] Family support [] [] Out of room [] Palliative care [] [] Receiving care in room [] Pre-surgical visit [] Trauma [] Long length of stay [] ICU visit [] Other: Relational/Emotional Strength [x] Patient feels connected with others/family/visitors/staff [] Distress [] Loneliness/isolation [] Abandonment Spirituality of Patient [x] Person of Alee [x] Attends Jew of their Alee [x] Believes in Prayer [] Reads Bible or Presybeterian materials [] There are Spiritual issues to be addressed Vp Cardiovascular Interventions [x] Prayer [x] Active listening [x] Non-anxious presence [] Spiritual/emotional support [] Crisis/trauma care [] Spiritual counseling [] Bereavement support [] Provided bereavement packet [] Provided Bible/devotional materials [] Provided toy/stuffed animal, coloring book to patient or family member [] Provided Communion [] Anointing/[place] [] Salvation [x] Completed spiritual assessment [] Other: Impact on Illness or Injury [] Angry [] Fearful [] Anxious [] Often cries [] Exhaustion [] Unable to work [] Unable to attend restoration [] Unable to walk/stand [] Unable to read [] Unable to drive [] Unable to eat/drink [] Unable to sleep [] Unable to be with family [] Patient intubated [] Other: Summary 10 min Time spent with patient
[2021-04-06 11:10] LABS: Glucose Point of Care 386 mg/dL (70-110)
[2021-04-06 12:00] VITALS: BP 186/84; PULSE 88; RESP 18; TEMP 37.2; O2SAT 93
[2021-04-06] MEDS: sodium chloride 0.9% 1,000 ML 75 ML IV (12:02)
--- NOTE | 2021-04-06 14:54 | PC.NURSE ---
Late entry from 0950 medtronic called with report. Dual Chamber, rate was 100 Pacing at 0.1%, No measurements captured yet but looks good. P wave measurement 3.4.
[2021-04-06 16:00] VITALS: BP 145/75; PULSE 99; RESP 16; TEMP 36.6; O2SAT 91
[2021-04-06 17:31] LABS: Glucose Point of Care 124 mg/dL (70-110)
[2021-04-06 18:22] VITALS: BP 145/75; PULSE 99; RESP 16; TEMP 36.6; O2SAT 91
--- NOTE | 2021-04-08 12:45 | P.DS_ITS ---
Discharge Providers Date of Admission: 04/05/21 14:33 Date of Discharge: April 08, 2021 Attending Provider at Admission: Bashir Gusman MD Attending Provider at Discharge: Bashir Gusman MD Primary Care Provider: Yazmin Boland APN Diagnoses at Discharge Discharge Diagnosis (1) Symptomatic bradycardia: Status: Resolved Permanent problem details: Patient presented with episodes of near syncope/syncope. She was found to have prolonged pauses of more than 3 seconds on the event monitor telemetry. (2) Diastolic heart failure: Status: Acute Qualifiers: Heart failure chronicity: acute Qualified Code(s): I50.31 - Acute diastolic (congestive) heart failure (3) Type 2 diabetes mellitus: Status: Acute Qualifiers: Diabetes mellitus complication status: with hyperglycemia Diabetes mellitus superintendent marine oil terminal insulin use: with superintendent marine oil terminal use Qualified Code(s): E11.65 - Type 2 diabetes mellitus with hyperglycemia; Z79.4 - halfway (current) use of insulin (4) CKD (chronic kidney disease): Status: Acute Qualifiers: Chronic kidney disease stage: stage 4 (severe) Qualified Code(s): N18.4 - Chronic kidney disease, stage 4 (severe) Reason for Visit Reason for Visit: Pacemaker Insertion Hospital Course Hospital Course Patient is admitted to the hospital following the permanent pacemaker implantation. She was admitted to the hospital mainly for IV antibiotics and close monitoring. She received a total of 4 doses of IV cefazolin. She tolerated the medication well. She denies any complication. The pacemaker site also did not have any hematoma or bleeding. Since the patient is remained stable with no new symptoms, she is being discharged home. Physical Exam Narrative: EXAM NARRATIVE: GENERAL: The patient is alert and oriented times three. Not in any acute distress. HEENT: No significant pallor, icterus or lymphadenopathy.Oral cavity: There are no mucous membrane lesions. NECK: Trachea appears to be central. No masses noted. No JVD or thyromegaly appreciated. RESPIRATORY: Chest is symmetrical. No intercostals muscle retraction or any accessory muscle activation. There is no chest wall tenderness. Breath sounds are heard bilaterally. No rales or rhonchi heard. No evidence of any consolidation. Pacemaker site patient has no hematoma or bleeding. BREASTS: Deferred. HEART: The heart sounds are normal. No S3 or S4. Systolic murmur in the left sternal border. No diastolic murmurs. No pericardial rub ABDOMEN: No vessel pulsations or distention. No tenderness. No organomegaly appreciated. Bowel sounds are normally heard. : Deferred. RECTAL: Deferred. LYMPHATIC: No lymphadenopathy noted in the neck or groin. EXTREMITIES: No edema or cyanosis. No clubbing. Peripheral pulses are palpated in fairly good volume and amplitude MUSCULOSKELETAL: No acute joint deformities or swelling SKIN: There are no significant rashes or ecchymosis NEUROPSYCHIATRIC: The patient is alert and oriented x3. Appears to be in a good mood. No tremors or rigidity noted. Discharge Data Data Completed and Pending: Completed Studies During Hospitalization Category Date Time Status SCHOOL ADJUSTMENT COUNSELOR request for service Routin e Exams 04/05/21 07:00 Completed XR chest 1V sandra ble [id number] Routine Exams 04/05/21 15:02 Completed Addt'l Data from Hospital Stay: Laboratory Last Values POC Glucose 124 mg/dL (70-110 ) H 04/06/21 17:26 Vitals: Last Vital Signs Temp 97.8 F 04/06/21 18:22 Pulse 99 04/06/21 18:22 Resp 16 04/06/21 18:22 BP 145/75 04/06/21 18:22 Pulse Ox 91 04/06/21 18:22 Discharge Plan Discharge Patient Disposition: Home Condition: Stable Prescriptions: Continued furosemide 40 mg tablet 40 mg PO BID RF: 0 multivitamin Tablet 1 tab PO DAILY@0800 RF: 0 gabapentin 600 mg tablet 300 mg PO BEDTIME@1999 RF: 0 simvastatin 40 mg tablet 40 mg PO DAILY@08 RF: 0 ferrous sulfate [iron] 325 mg (65 mg iron) Tablet 325 mg PO BID@799,1999 RF: 0 amlodipine 10 mg Tablet 10 mg PO DAILY@0800 RF: 0 omeprazole 20 mg Tablet,Delayed Release (Dr/Ec) 20 mg PO DAILY@08 RF: 0 insulin aspart U-100 [Novolog U-100 Insulin aspart] 100 unit/mL Solution See Rx Instructions .ROUTE .COMPLEX Qty: 10 RF: 0 acetaminophen 650 mg Tablet 650 mg PO Q6H PRN (Reason: Pain) RF: 0 Basaglar KwikPen U-100 Insulin 100 unit/mL (3 mL) insulin pen 20 unit SUBCUT BEDTIME Qty: 0 RF: 0 No Action cephalexin 500 mg capsule 500 mg PO Q6H 5 Days Qty: 20 RF: 0 Discharge Orders: Discharge Order (Routine); Ordered 04/06/21 Ordered By: Bashir Gusman Discharge Diet: Advance as tolerated Patient Instructions: Cephalexin (By mouth), Pacemaker (DC), Opioid Safety, Post Pacemaker - Naseem Activity Restrictions/Additional Instructions: Avoid any weightbearing in the left elbow for the next 6 weeks. Minimize the movements of the left shoulder to 45 degrees. Keep the pacemaker site clean and dry. Keep the dressing on until she comes to the office next week. Appointment to be seen by the nurse practitioner at the [facility] next Appointment with me in the office in 1 month Discharge Attestations Time Spent in Discharge Care*: greater than 30 min Status at Discharge: Cognitive status at discharge: cognitively intact , Behavioral status at discharge: cooperative , Quality Metrics Clinical Quality Measures During this hospital stay, did patient experience: None Coding Level of Care Code Acute Chg FW DC note History Detailed Exam Detailed Medical Decision Making Moderate Complexity Diagnoses Symptomatic bradycardia R00.1 Diastolic heart failure I50.31 Heart failure chronicity: acute Type 2 diabetes mellitus E11.65; Z79.4 Diabetes mellitus complication status: with hyperglycemia Diabetes mellitus superintendent marine oil terminal insulin use: with group home use CKD (chronic kidney disease) N18.4 Chronic kidney disease stage: stage 4 (severe)
== END 2021-04-06 18:23 | disposition home or self-care (01) ==
LOC: MEDSURG 14:33
PROVIDERS: Admitting Provider Internal Medicine Cardiovascular Disease; PCP Nurse Practitioner; Visit Provider Internal Medicine Cardiovascular Disease
DX: I44.0 Atrioventricular block, first degree (principal); I44.4 Left anterior fascicular block; R00.1 Bradycardia, unspecified; R55 Syncope and collapse; I50.31 Acute diastolic (congestive) heart failure; E11.65 Type 2 diabetes mellitus with hyperglycemia; E78.5 Hyperlipidemia, unspecified; E11.22 Type 2 diabetes mellitus with diabetic chronic kidney disease; I13.0 Hypertensive heart and chronic kidney disease with heart failure and stage 1 through stage 4 chronic kidney disease, or unspecified chronic kidney disease; N18.4 Chronic kidney disease, stage 4 (severe)
CPT/HCPCS: 33208; 36415; 36416; 71045; 82962; 93005; 96372; 97110; 97165; C1769; C1779; C1786; C1894; C1898; G0378; J0360; J0690; J1815 ×2; J2250; J3010; J7030; J7050

== ENCOUNTER → 2022-02-03 10:56 | Outpatient (BNVA) | payer MEDICARE, OTHER, SELFPAY | PROVIDERS: PCP Nurse Practitioner; Visit Provider Internal Medicine | DX: Z45.010 Encounter for checking and testing of cardiac pacemaker pulse generator [battery] (principal) | CPT/HCPCS: 93280 ==

== ENCOUNTER → 2022-08-18 09:44 | Outpatient (BNVA) | payer MEDICARE, OTHER, SELFPAY | PROVIDERS: Visit Provider Internal Medicine | DX: R55 Syncope and collapse (principal); I13.0 Hypertensive heart and chronic kidney disease with heart failure and stage 1 through stage 4 chronic kidney disease, or unspecified chronic kidney disease; E11.22 Type 2 diabetes mellitus with diabetic chronic kidney disease; N18.4 Chronic kidney disease, stage 4 (severe); I50.30 Unspecified diastolic (congestive) heart failure; Z79.4 Long term (current) use of insulin; E78.2 Mixed hyperlipidemia; Z95.0 Presence of cardiac pacemaker; I35.0 Nonrheumatic aortic (valve) stenosis | CPT/HCPCS: 93280; 99214 ==

== ENCOUNTER 2022-09-21 07:44 | Outpatient (CLI) | payer MEDICARE, OTHER, SELFPAY ==
--- NOTE | 2022-09-21 08:30 | USCV_ITS ---
[facility] 87 Gender: F : 1935 Exam Date: 09/21/2022 08:11 Ordering Phys: Colt Connolly M.D ([email or web address]) Technologist: FRANCES [place] [facility] [place]: AORTIC STENOSIS BP: 134 / 80 HR: 38 Rhythm: Sinus Technical Quality: Suboptimal MEASUREMENTS (Male / Female) Normal Values 2D ECHO LVOT Diameter 2.0 cm LV Ejection Fraction MOD 2C 71.5 % LV Ejection Fraction 2C AL 73.1 % LA Diameter 3.3 cm LA Width 4.6 cm LA Height 5.9 cm RA Width 3.1 cm RA Height 4.8 cm Aorta at Sinotubular Diameter 2.3 cm IVC Diameter 1.5 cm M-MODE Aortic Annulus Diameter 3.2 cm LA Ao Ratio MM 1.0 MV E Point Septal Separation 0.7 cm DOPPLER AV Peak Velocity 238.0 cm/s LVOT Peak Velocity 92.0 cm/s AV Area Cont Eq vti 1.2 cm squared AV Area Cont Eq pk 1.3 cm squared MV Peak Velocity 196.0 cm/s MV Area PHT 3.4 cm squared Mitral E to A Ratio 0.9 MV E' Velocity 82.0 cm/s Mitral E to MV E' Ratio 25.7 Mitral E to LV E' Lateral Ratio 29.5 Mitral E to LV E' Septal Ratio 23.1 TR Peak Velocity 323.1 cm/s TR Peak Gradient 41.8 mmHg TR Mean Velocity 208.3 cm/s TR Mean Gradient 21.1 mmHg TR Velocity Time Integral 98.1 cm TV Peak E Velocity 52.0 cm/s Right Atrial Pressure 3.0 mmHg Pulmonary Artery Systolic Pressu 44.8 mmHg PV Peak Velocity 144.0 cm/s RV Acceleration Time 0.1 s RV Ejection Time 0.3 s RV AcT/ET 0.3 FINDINGS Left Ventricle Left ventricle is normal in size. LV systolic function is normal with EF 55 to 60%. Septal motion is consistent with conduction abnormality. Right Ventricle Normal in size and function. Pacemaker lead is seen. Right Atrium Normal in size Left Atrium Dilated Mitral Valve Moderate mitral annular calcification is seen. Moderate mitral regurgitation. Mild mitral stenosis with mean gradient across the mitral valve of 7.2 mmHg. Aortic Valve Aortic valve is thickened. Mild aortic valve stenosis with aortic valve area of 1.19 cm squared and mean gradient across aortic valve of 13.3 mmHg. Tricuspid Valve Mild tricuspid regurgitation. RVSP is 40 to 45 mmHg. This is consistent with mild pulmonary hypertension. Pulmonic Valve Not well visualized Pericardium Normal Aorta Normal in size IVC Appears to be normal CONCLUSIONS LV systolic function is normal with EF 55 to 60%. Left atrial dilation Moderate mitral annular calcification is seen. Mild mitral stenosis. Moderate mitral regurgitation. Aortic valve is thickened. Mild aortic stenosis with aortic valve area of 1.19 cm squared and mean gradient across aortic valve of 13.3 mmHg Mild tricuspid regurgitation Mild pulmonary hypertension Compared to prior echocardiogram from 2020, no significant changes are seen. Colt Connolly MD (Electronically Signed) Final Date: 27 September 2022 15:19 S
== END 2022-09-21 07:45 | disposition home or self-care (01) ==
LOC: RAD 07:54
PROVIDERS: PCP Nurse Practitioner Family; Visit Provider Internal Medicine
DX: I08.3 Combined rheumatic disorders of mitral, aortic and tricuspid valves (principal); I27.20 Pulmonary hypertension, unspecified
CPT/HCPCS: 93306

== ENCOUNTER → 2023-02-16 10:16 | Outpatient (BNVA) | payer MEDICARE, OTHER, SELFPAY | PROVIDERS: PCP Nurse Practitioner Family; Visit Provider Internal Medicine | DX: I13.0 Hypertensive heart and chronic kidney disease with heart failure and stage 1 through stage 4 chronic kidney disease, or unspecified chronic kidney disease (principal); E11.22 Type 2 diabetes mellitus with diabetic chronic kidney disease; N18.4 Chronic kidney disease, stage 4 (severe); I50.30 Unspecified diastolic (congestive) heart failure; Z79.4 Long term (current) use of insulin; E78.2 Mixed hyperlipidemia; Z95.0 Presence of cardiac pacemaker; E11.65 Type 2 diabetes mellitus with hyperglycemia; I35.0 Nonrheumatic aortic (valve) stenosis | CPT/HCPCS: 99214 ==